=== PATIENT | female | born 1955 | race Caucasian/White ===

== ENCOUNTER 2018-06-10 18:17 | Inpatient (IN) | payer MEDICARE ==
[2018-06-10] MEDS ORDERED: IPRATROPIUM-ALBUTEROL 3 ML NEB INHALATION STA (18:42)
--- NOTE | 2018-06-10 18:42 | ED ---
Chest Pain HPI - General Chief Complaint: Chest Pain Stated Complaint: Chest pain Time Seen by Provider: 06/10/18 18:35 Source: patient, RN notes reviewed, old records reviewed Mode of arrival: wheelchair Limitations: no limitations - History of Present Illness Initial Comments: This is a 62-year-old female the ER for evaluation of multiple complaints complaints including shortness of breath COPD exacerbation, left lower extremity edema and chest pain left-sided chest pain. Patient states chest pain is severe. No recent travel history no sick contacts. No fevers no cough or congestion. Patient states she is having COPD exacerbation but states the pain is worse than normal. No recent travel history no known sick contacts. MD Complaint: chest pain, other (Shortness of breath) -: week(s) Onset: during rest, during exertion Pain Location: left chest Pain Radiation: LUE Severity: moderate Quality: aching Consistency: constant Improves With: nothing Worsens With: nothing Anginal Symptoms: dyspnea Other Symptoms: cough Treatments Prior to Arrival: none - Related Data Home Medications Medication Instructions Recorded Confirmed Albuterol Inhaler [Ventolin Hfa 2 puff INHALATION RT-Q6H PRN 05/30/15 06/10/18 Inhaler] Tiotropium [place] [Spiriva 2 puff INHALATION RT-DAILY 05/30/15 06/10/18 Respimat] amLODIPine [Norvasc] 10 mg PO DAILY 05/30/15 06/10/18 Metoprolol Tartrate [Lopressor] 25 mg PO BID 06/10/18 06/10/18 Omeprazole 20 mg PO DAILY 06/10/18 06/10/18 Allergies Allergy/AdvReac Type Severity Reaction Status Date / Time codeine AdvReac Itching Verified 06/10/18 19:11 succinylcholine chloride AdvReac CAUSED Verified 06/10/18 19:11 [From Anectine] PARALYSIS -PT COULDN'T MOVE AFTER SURGERY Review of Systems ROS Statement: Those systems with pertinent positive or pertinent negative responses have been documented in the HPI. ROS Other: All systems not noted in ROS Statement are negative. EKG Findings - EKG Comments: EKG Findings:: EKG shows sinus bradycardia rate of 59, NV 120, QRS 74, QTC 417 Past Medical History Past Medical History: Asthma, Hypertension, Myocardial Infarction ([place]) Additional Past Medical History / Comment(s): BACK PAIN, ANECTINE-CAUSES PT TO BE PARALYZED. WAS TESTED- MOTHER ALSO HAS PROBLEM WITH THIS Last Myocardial Infarction Date:: 1999 History of Any Multi-Drug Resistant Organisms: None Reported Past Surgical History: Appendectomy, Back Surgery, Heart Catheterization, Hysterectomy, Orthopedic Surgery, Tonsillectomy Additional Past Surgical History / Comment(s): HEART CATH X 2, NECK FUSION & LOWER BACK FUSION-PAIN STIMULATOR IN PER PT, SCHUYLER CT, SCHUYLER TENNIS ELBOW, RT HAND TRIGGER FINGER Past Anesthesia/Blood Transfusion Reactions: Previous Problems w/ Anesthesia Additional Past Anesthesia/Blood Transfusion Reaction / Comment(s): anectine Past Psychological History: No Psychological Hx Reported Smoking Status: Former smoker - Past Family History Mother Family Medical History: Cancer Additional Family Medical History / Comment(s): MOM UTERINE CA Father Family Medical History: Myocardial Infarction ([place]) Additional Family Medical History / Comment(s): No GI malignancy or gluten enteropathy General Exam Limitations: no limitations General appearance: alert, in no apparent distress, anxious Head exam: Present: atraumatic, normocephalic, normal inspection Eye exam: Present: normal appearance, PERRL, EOMI. Absent: scleral icterus, conjunctival injection, periorbital swelling ENT exam: Present: normal exam, mucous membranes moist Neck exam: Present: normal inspection. Absent: tenderness, meningismus, lymphadenopathy Respiratory exam: Present: respiratory distress, wheezes, accessory muscle use, decreased breath sounds, prolonged expiratory. Absent: rales, rhonchi, stridor Cardiovascular Exam: Present: regular rate, normal rhythm, normal heart sounds. Absent: systolic murmur, diastolic murmur, rubs, gallop, clicks GI/Abdominal exam: Present: soft, normal bowel sounds. Absent: distended, tenderness, guarding, rebound, rigid Extremities exam: Present: normal inspection, full ROM, normal capillary refill. Absent: tenderness, pedal edema, joint swelling, calf tenderness Back exam: Present: normal inspection Neurological exam: Present: alert, oriented X3, CN II-XII intact Psychiatric exam: Present: normal affect, normal mood Skin exam: Present: warm, dry, intact, normal color. Absent: rash Course Vital Signs 06/10/18 06/10/18 06/10/18 18:18 19:17 19:29 Temperature 98.3 F Pulse Rate 71 56 L 59 L Respiratory 18 Rate Blood Pressure 125/64 O2 Sat by Pulse 82 L Oximetry 06/10/18 20:36 Temperature Pulse Rate 65 Respiratory 20 Rate Blood Pressure 134/74 O2 Sat by Pulse 95 Oximetry - Reevaluation(s) Reevaluation #1: 06/10/18 20:45 Medical record is reviewed Reevaluation #2: 06/10/18 20:46 No improvement with breathing treatment Chest Pain MDM - MDM 62 female the ER for evaluation [place] COPD exacerbation and hypoxia as well as chest pain. Patient be admitted for cardiac observation breathing treatments. IV steroids and cardiopulmonary resuscitation Critical Care Time Critical Care Time: Yes Total Critical Care Time: 31 Disposition Clinical Impression: Acute exacerbation of chronic obstructive pulmonary disease (COPD), Chest pain , Hypoxia Disposition: ADMITTED IP TO THIS HOSP Condition: Serious Is patient prescribed a controlled substance at d/c from ED?: No Referrals: Keshawn Link MD [Primary Care Provider] - 1-2 days
[2018-06-10 19:43] LABS: Basophils # (A) 0.1 k/uL (0-0.2); Basophils % (A) 1 %; Eosinophils # (A) 0.6 k/uL (0-0.7); Eosinophils % (A) 6 %; HCT 41.9 % (34.0-46.0); HGB 13.3 gm/dL (11.4-16.0); Lymphocytes # (A) 1.9 k/uL (1.0-4.8); Lymphocytes % (A) 18 %; MCHC 31.6 g/dL (31.0-37.0); MCV 85.4 fL (80.0-100.0); Mean Platelet Volume 6.8; Monocytes # (A) 0.6 k/uL (0-1.0); Monocytes % (A) 6 %; Neutrophils # (A) 7.3 k/uL (1.3-7.7); Neutrophils % (A) 68 %; Platelet Count 249 k/uL (150-450); RBC 4.91 m/uL (3.80-5.40); RDW 15.1 % (11.5-15.5); WBC 10.7 k/uL (3.8-10.6)
[2018-06-10 19:53] LABS: ALT 24 U/L (9-52); AST 16 U/L (14-36); Albumin 3.6 g/dL (3.5-5.0); Alkaline Phosphatase 66 U/L (38-126); Anion Gap 5 mmol/L; Blood Urea Nitrogen 21 mg/dL (7-17); Carbon Dioxide 28 mmol/L (22-30); Chloride 109 mmol/L (98-107); Glucose 94 mg/dL (74-99); Lipase 159 U/L (23-300); Magnesium 1.9 mg/dL (1.6-2.3); Potassium 3.9 mmol/L (3.5-5.1); Sodium 142 mmol/L (137-145); Total Bilirubin 0.3 mg/dL (0.2-1.3); Total Protein 6.3 g/dL (6.3-8.2)
[2018-06-10] MEDS ORDERED: MORPHINE SULFATE 4 MG/ML SYRINGE IVP STA (19:54)
[2018-06-10] MEDS ORDERED: MORPHINE SULFATE 4 MG/ML SYRINGE IVP PRN (19:54)
--- NOTE | 2018-06-10 20:18 | US ---
EXAMINATION TYPE: US venous doppler duplex LE LT DATE OF EXAM: 06/10/2018 7:50 PM COMPARISON: NONE CLINICAL HISTORY: Pain. Left leg pain SIDE PERFORMED: Left TECHNIQUE: The lower extremity deep venous system is examined utilizing real time linear array sonog lucie with graded compression, doppler sonography and color-flow sonography. VESSELS IMAGED: External Iliac Vein (EIV) Common Femoral Vein Deep Femoral Vein Greater Saphenous Vein * Femoral Vein Popliteal Vein Small Saphenous Vein * Proximal Calf Veins (* superficial vessels) Left Leg: Negative for DVT IMPRESSION: 1. Left lower extremity ultrasound is negative for deep venous thrombosis.
--- NOTE | 2018-06-10 20:20 | XR ---
EXAMINATION TYPE: XR chest 2V DATE OF EXAM: 06/10/2018 COMPARISON: 06/02/2015 INDICATION: Chest pain TECHNIQUE: Frontal and lateral views of the chest are obtained. FINDINGS: The heart size is normal. The pulmonary vasculature is normal. The lungs are clear. Stimulator leads are in the posterior lower thoracic region. IMPRESSION: 1. No acute pulmonary process.
[2018-06-10 20:30] LABS: D-Dimer 0.42 mg/L FEU (<0.60); INR 0.9 (<1.2); Prothrombin Time 9.9 sec (9.0-12.0)
[2018-06-10] MEDS ORDERED: methylPREDNISolone SOD SUCCI 125 MG/2 ML VIAL IV STA (20:46)
[2018-06-10] MEDS ORDERED: NITROGLYCERIN SL TABS 0.4 MG TAB SUBLINGUAL PRN (20:46)
--- NOTE | 2018-06-10 21:13 | CT ---
CT CHEST FOR PULMONARY EMBOLISM. EXAMINATION TYPE: CT angio chest DATE OF EXAM: 06/10/2018 INDICATION: Left sided chest pain with leg swelling. CT DLP: 263.8 mGycm, Automated exposure control for dose reduction was used. CONTRAST: Patient injected with 65 mL of Isovue 370. COMPARISON: None TECHNIQUE: CT of the chest is performed on a spiral scan at 2 mm thick sections. Study is performed with intravenous contrast timed for evaluation for pulmonary embolism. This will limit additional po rtions of the evaluation. 3-D MIP images reconstructed by the technologist are reviewed on the compu ter in the coronal and sagittal planes. FINDINGS: No persistent filling defects are evident to suggest an acute pulmonary embolism. No mediastinal or hilar adenopathy enlarged by CT criteria is evident. The ascending aorta diameter at the level of the main pulmonary artery is 2.8 cm. The main pulmonary artery diameter at the bifur cation is 2.3 cm. No suspicious consolidations are evident. Emphysematous changes are present. There appears to be some atelectasis within the lingula along the anterior diaphragm. This measures 0.8 x 1.4 cm, series 406 image 95. Atelectasis and masses within the differential. Follow-up CT chest in 3 months is recommend ed. Limited CT section through the upper abdomen are unremarkable. IMPRESSIONS: 1. No acute pulmonary embolism. 2. Atelectasis versus mass lingular base. Follow-up CT chest recommended in 3 months
[2018-06-10 23:18] VITALS: BMI 31.4
[2018-06-10] MEDS: methylPREDNISolone SOD SUCCI 125 MG/2 ML VIAL IV SCH ×2 (23:18→23:19)
[2018-06-10] MEDS ORDERED: CALCIUM CARBONATE 500 MG CHEWABLE PO PRN (23:19)
[2018-06-10] MEDS ORDERED: PANTOPRAZOLE 40 MG/10 ML VIAL IVP SCH (23:30)
[2018-06-10] MEDS ORDERED: TEMAZEPAM 15 MG CAP PO PRN (23:56)
[2018-06-10] MEDS ORDERED: ALPRAZolam 0.25 MG TAB PO PRN (23:56)
[2018-06-11] MEDS: HYDROmorphone 0.5 MG/0.5 ML SYRINGE IVP PRN ×7 (00:08→23:51)
[2018-06-11] MEDS: ceFAZolin IN SWFI 2 GM/20 ML SYRINGE IVP SCH ×4 (01:26→23:56)
[2018-06-11 01:45] LABS: Appearance,Urine Clear (Clear); Bacteria,Urine Rare /hpf; Bilirubin,Urine Negative (Negative); Blood,Urine Negative (Negative); Color,Urine Yellow; Glucose,Urine (UA) Negative (Negative); Ketones,Urine Negative (Negative); Leukocyte Esterase,Urine Trace (Negative); Mucus,Urine Rare /hpf; Nitrite,Urine Negative (Negative); Protein,Urine Trace (Negative); RBC,Urine 2 /hpf (0-5); Squamous Epithelial Cell,Urine 2 /hpf (0-4); Urobilinogen,Urine <2.0 mg/dL (<2.0); WBC,Urine 4 /hpf (0-5)
[2018-06-11 01:50] LABS: Specific Gravity,Urine >1.050 (1.001-1.035)
[2018-06-11] MEDS: IPRATROPIUM-ALBUTEROL 3 ML NEB INHALATION PRN ×2 (01:51→23:56)
[2018-06-11] MEDS: IPRATROPIUM-ALBUTEROL 3 ML NEB INHALATION SCH ×4 (07:48→19:40)
[2018-06-11 07:50] LABS: Basophils # (A) 0.1 k/uL (0-0.2); Basophils % (A) 1 %; Eosinophils # (A) 0.6 k/uL (0-0.7); Eosinophils % (A) 5 %; HGB 13.2 gm/dL (11.4-16.0); Hypochromasia Slight; Lymphocytes # (A) 1.9 k/uL (1.0-4.8); Lymphocytes % (A) 16 %; MCH 26.5 pg (25.0-35.0); MCHC 31.5 g/dL (31.0-37.0); MCV 84.1 fL (80.0-100.0); Mean Platelet Volume 7.5; Monocytes # (A) 0.8 k/uL (0-1.0); Monocytes % (A) 7 %; Neutrophils % (A) 69 %; Platelet Count 229 k/uL (150-450); RDW 14.6 % (11.5-15.5); WBC 11.5 k/uL (3.8-10.6)
--- NOTE | 2018-06-11 08:00 | P.HPIM ---
History of Present Illness H&P Date: 06/11/18 Chief Complaint: Chest pain with melanotic stool This is a 62-year-old white female who has an underlying history of COPD. The patient in the remote past has been treated with stem cells and has been doing quite well from a COPD perspective. She saw me about 2 weeks ago and complained of lower extremity edema. We went ahead and did ultrasound the lower extremities which was negative for any type of DVT. She still says trace edema and now is complaining of left chest pain which radiates to the neck and lower jaw area. No nausea. No diaphoresis. However, she has also been complaining in the last several days of dark stool. No Pepto-Bismol has been taken. No history of GI bleeding in the past. Review of Systems Eyes: denies blurred vision, denies pain Ears, nose, mouth and throat: Denies headache, Denies sore throat Cardiovascular: Reports chest pain Respiratory: Denies cough Gastrointestinal: Denies abdominal pain, Denies diarrhea, Denies nausea, Denies vomiting Genitourinary: Denies dysuria, Denies hematuria Musculoskeletal: Denies myalgias Past Medical History Past Medical History: Asthma, GERD/Reflux, Hypertension, Myocardial Infarction ( [place]) Additional Past Medical History / Comment(s): BACK PAIN, ANECTINE-CAUSES PT TO BE PARALYZED. WAS TESTED- MOTHER ALSO HAS PROBLEM WITH THIS Last Myocardial Infarction Date:: 1999 History of Any Multi-Drug Resistant Organisms: None Reported Past Surgical History: Appendectomy, Back Surgery, Heart Catheterization, Hysterectomy, Orthopedic Surgery, Tonsillectomy Additional Past Surgical History / Comment(s): HEART CATH X 2, NECK FUSION & LOWER BACK FUSION-PAIN STIMULATOR IN PER PT, SCHUYLER CT, SCHUYLER TENNIS ELBOW, RT HAND TRIGGER FINGER Past Anesthesia/Blood Transfusion Reactions: Previous Problems w/ Anesthesia Additional Past Anesthesia/Blood Transfusion Reaction / Comment(s): anectine Past Psychological History: Anxiety Smoking Status: Former smoker Past Alcohol Use History: None Reported Additional Past Alcohol Use History / Comment(s): QUIT SMOKING 2001, SMOKED 1/2 PPD FROM A TEEN Past Drug Use History: None Reported - Past Family History Mother Family Medical History: Cancer Additional Family Medical History / Comment(s): MOM UTERINE CA Father Family Medical History: Myocardial Infarction ([place]) Additional Family Medical History / Comment(s): No GI malignancy or gluten enteropathy Medications and Allergies Home Medications Medication Instructions Recorded Confirmed Type Albuterol Inhaler [Ventolin Hfa 2 puff INHALATION RT-Q6H PRN 05/30/15 06/10/18 History Inhaler] Tiotropium [place] [Spiriva 2 puff INHALATION RT-DAILY 05/30/15 06/10/18 History Respimat] amLODIPine [Norvasc] 10 mg PO DAILY 05/30/15 06/10/18 History Metoprolol Tartrate [Lopressor] 25 mg PO BID 06/10/18 06/10/18 History Omeprazole 20 mg PO DAILY 06/10/18 06/10/18 History Allergies Allergy/AdvReac Type Severity Reaction Status Date / Time codeine AdvReac Itching Verified 06/10/18 19:11 succinylcholine chloride AdvReac CAUSED Verified 06/10/18 19:11 [From Anectine] PARALYSIS -PT COULDN'T MOVE AFTER SURGERY Physical Exam Vitals: Vital Signs Temp Pulse Pulse Resp BP BP Pulse Ox 06/11/18 07:49 62 06/11/18 03:55 97.9 F 60 18 111/51 93 L 06/11/18 02:05 63 06/11/18 01:53 63 06/11/18 00:00 50 L 18 06/10/18 22:55 98.2 F 63 18 160/70 98 06/10/18 21:56 56 L 20 144/78 96 06/10/18 20:36 65 20 134/74 95 06/10/18 19:29 59 L 06/10/18 19:17 56 L 06/10/18 18:18 98.3 F 71 18 125/64 82 L Intake and Output 06/10/18 06/11/18 06/11/18 22:59 06:59 14:59 Intake Total 20 711 Output Total 50 Balance -30 711 Intake: Amount of Fluid Infused ( 20 ml) Oral 711 Output: Urine 50 Other: Voiding Method Toilet # Voids 1 1 Weight 72.575 kg 72.7 kg - Constitutional General appearance: no acute distress - EENT Eyes: EOMI - Neck Neck: no lymphadenopathy - Respiratory Respiratory: bilateral: diminished - Cardiovascular Rhythm: regular Heart sounds: normal: S1, S2 Abnormal Heart Sounds: no S3 Gallop - Gastrointestinal General gastrointestinal: soft - Integumentary Integumentary: no cellulitis - Neurologic Neurologic: CNII-XII intact Results CBC & Chem 7: 06/11/18 07:30 06/10/18 19:34 Labs: Abnormal Lab Results - Last 24 Hours (Table) 06/10/18 06/10/18 06/11/18 Range/Units 19:34 19:34 01:30 WBC 10.7 H (3.8-10.6) k/uL Chloride 109 H (98-107) mmol/L BUN 21 H (7-17) mg/dL Ur Specific [place] >1.050 H (1.001-1.035) Urine Protein Trace H (Negative) Ur Leukocyte Esterase Trace H (Negative) Urine Bacteria Rare H (None) /hpf Urine Mucus Rare H (None) /hpf 06/11/18 Range/Units 07:30 WBC 11.5 H (3.8-10.6) k/uL Chloride (98-107) mmol/L BUN (7-17) mg/dL Ur Specific [place] (1.001-1.035) Urine Protein (Negative) Ur Leukocyte Esterase (Negative) Urine Bacteria (None) /hpf Urine Mucus (None) /hpf Thrombosis Risk Factor Assmnt - Choose All That Apply Any of the Below Risk Factors Present?: Yes Each Factor Represents 1 point: Swollen legs (current) Other Risk Factors: Yes Each Risk Factor Represents 2 Points: Age 61-74 years Thrombosis Risk Factor Assessment Total Risk Factor Score: 3 Thrombosis Risk Factor Assessment Level: Moderate Risk Assessment and Plan (1) Chest pain Current Visit: Yes Status: Acute Code(s): R07.9 - CHEST PAIN, UNSPECIFIED SNOMED Code(s): 33382890 (2) Diarrhea Current Visit: No Status: Acute Code(s): R19.7 - DIARRHEA, UNSPECIFIED SNOMED Code(s): 99733635 (3) COPD (chronic obstructive pulmonary disease) Current Visit: Yes Status: Acute Code(s): J44.9 - CHRONIC OBSTRUCTIVE PULMONARY DISEASE, UNSPECIFIED SNOMED Code(s): 91069713 Plan: Rule out myocardial infraction. Guaiac stool. Check CBC in the a.m. She is otherwise full code. Await cardiology input. Appreciate pulmonology input also. See orders otherwise. Time with Patient: Greater than 30
[2018-06-11 08:03] LABS: Potassium 4.6 mmol/L (3.5-5.1)
[2018-06-11 08:10] LABS: Large Platelets Present
[2018-06-11] MEDS: PANTOPRAZOLE 40 MG TABLET PO SCH (08:35)
[2018-06-11] MEDS: METOPROLOL TARTRATE 25 MG TAB PO SCH ×2 (08:35→19:41)
[2018-06-11] MEDS: amLODIPine 10 MG TAB PO SCH (08:35)
--- NOTE | 2018-06-11 08:37 | HP ---
HISTORY AND PHYSICAL I am covering for Dr. Link. DATE OF SERVICE: 06/10/2018 CHIEF COMPLAINTS: Chest pain and shortness of breath. HISTORY OF PRESENT ILLNESS: This is a 62-year-old woman with a past medical history of multiple medical problems including asthma, history of GERD, hypertension, history of myocardial infarction, appendectomy, being followed by Dr. Link in the outpatient setting, was complaining of multiple symptomatology. The patient also complaining of chest pressure type of pain. Patient also had shortness of breath. The patient also had back pain, patient also complaining of left leg pain and tenderness also. The patient also had elevated blood pressure. Because of multiple complaints, patient came to [facility], admitted for further evaluation and treatment. The patient had multiple evaluations in the ER which showed normal troponins and as well as chest CTA showed no evidence of pulmonary embolism, but the patient had evidence of atelectasis or mass. The mass in the lingular area and the patient evaluation and treatment. There is no history of fever or rigors. No history of headache, loss consciousness or seizures at this time. PAST MEDICAL HISTORY: Asthma, GERD, hypertension, myocardial infarction, back pain, appendectomy. MEDICATIONS: Prior to admission include: 1. Norvasc 10 mg. 2. Spiriva 2 puffs b.i.d. 3. Omeprazole 20 mg daily. 4. Lopressor 25 mg b.i.d. 5. Ventolin 2 puffs q.6 p.r.n. ALLERGIES: CODEINE and SUCCINYLCHOLINE. FAMILY HISTORY: History of cancer, uterine cancer. SOCIAL HISTORY: Previous history of smoking. No history of current smoking or alcohol intake. REVIEW OF SYSTEMS: ENT: No diminished vision or diminished hearing. CARDIOVASCULAR: As mentioned earlier. GI: No nausea : No dysuria. NERVOUS SYSTEM: No numbness or weakness. ALLERGY/IMMUNOLOGY: As mentioned earlier. HEMATOLOGY: No history of anemia. ENDOCRINE: No history of diabetes or hypothyroidism. CONSTITUTIONAL: As mentioned earlier. DERMATOLOGY: Negative. RHEUMATOLOGY: Negative. PSYCHIATRY: As mentioned earlier. PHYSICAL EXAMINATION: The patient is alert and oriented x3. Pulse 65, blood pressure 135/75, respiration 20, temperature 98.2, pulse ox 94% on 2 L. HEENT: Conjunctivae normal, oral mucosa moist. Neck is no jugular venous distention. No lymph node enlargement. CARDIOVASCULAR SYSTEM: S1, S2. RESPIRATORY: Breath sounds diminished in the bases, a few scattered rhonchi, no crackles. ABDOMEN: Soft, nontender. LEGS: Left leg pain and tenderness and some erythema also present in the posterior leg. NERVOUS SYSTEM: Higher functions as mentioned earlier, moves all 4 limbs, no focal motor deficits. LYMPHATICS: No lymph node enlargement in the neck or axillae SKIN: No ulcer, rash or bleeding. JOINTS: No active arthrology. LABS: WBC 7.2, hemoglobin is 13.6. ASSESSMENT: 1. Chronic obstructive pulmonary disease acute exacerbation. 2. Chest pain, rule out myocardial infarction, possibly musculoskeletal. 3. Hypoxia. 4. Right leg pain and possible acute cellulitis. 5. Increased WBC. 6. History of asthma. 7. Gastroesophageal reflux disease. 8. Hypertension. 9. History of myocardial infarction. 10.History of appendectomy. 11.History of hysterectomy. 12.History of anxiety. RECOMMENDATION: In this 62-year-old woman who presented with multiple complex medical issues, will monitor the patient closely, continue with the current management and symptomatic treatment. Patient is started on IV steroids as well as bronchodilators. I would also recommend antibiotics. Resume the home medications. Cardiology has been consulted. The patient also seen Dr. Murcia for COPD. Will resume the rest of the home medications. I would also recommend continue close follow up with Dr. Link. Will follow. See orders for details. MMODL / IJN: [id number] /
[2018-06-11 08:38] LABS: Cholesterol 141 mg/dL (<200); HDL Cholesterol 46 mg/dL (40-60); LDL Cholesterol,Calculated 42 mg/dL (0-99); Triglycerides 265 mg/dL (<150)
[2018-06-11] MEDS ORDERED: ASPIRIN 325 MG TAB PO SCH (09:00)
--- NOTE | 2018-06-11 10:39 | P.CRDCN ---
History of Present Illness Consult date: 06/11/18 Requesting physician: Keshawn Link Consult reason: chest pain Chief complaint: Chest pain History of present illness: This is a pleasant 62-year-old female who follows regularly with Dr. Beto Cagle in the office. She has a known history of hypertension, prior history of smoking, COPD, asthma, prior stem cell transplant in [place], she presents to the hospital with symptoms of shortness of breath. Patient also states that she has been having some chest pain which she describes as a heartburn sensation in the mid chest area upper epigastric area which radiates up into the left shoulder region. Patient states that the pain worsens with deep breathing and movement of her left arm. She also states that the night before last she went up to go to the bathroom in the middle of the night, noticed that her stool was extremely black. Patient also complained of some swelling in her left lower extremity with associated calf pain. Venous duplex study was performed on arrival here which was negative for DVT. CT of the chest was also performed which was negative for pulmonary embolism. According to the patient, she has had an EGD and colonoscopy done in the past but this has been greater than 5 years ago. She also states that she has been scheduled to undergo stress test in the upcoming weeks at the office. She denies any prior history of myocardial infarction, she is a nondiabetic, no hyperlipidemia. Chest x-ray on presentation here did not reveal any acute pulmonary process. EKG on arrival here showed a sinus bradycardia with no acute changes. Blood pressure on arrival here 124/68 with a heart rate in the 70s, 82% on room air. The pressure this morning 110/50 with a heart rate in the 60s, 93% on 3 L of oxygen. White blood cell count 11.5, hemoglobin 13.2, platelet count 229. D-dimer negative at 0.4. Sodium 142, potassium 4.6, BUN 24 and creatinine 0.8. Troponins have been negative 3, BNP level 405. Cholesterol 141, triglycerides 265, LDL 42 and HDL 46. Urinalysis was negative for UTI. At the time of my examination this morning, patient continues to have midsternal and left upper chest discomfort with deep breaths. Past Medical History Past Medical History: Asthma, GERD/Reflux, Hypertension, Myocardial Infarction ( [place]) Additional Past Medical History / Comment(s): BACK PAIN, ANECTINE-CAUSES PT TO BE PARALYZED. WAS TESTED- MOTHER ALSO HAS PROBLEM WITH THIS Last Myocardial Infarction Date:: 1999 History of Any Multi-Drug Resistant Organisms: None Reported Past Surgical History: Appendectomy, Back Surgery, Heart Catheterization, Hysterectomy, Orthopedic Surgery, Tonsillectomy Additional Past Surgical History / Comment(s): HEART CATH X 2, NECK FUSION & LOWER BACK FUSION-PAIN STIMULATOR IN PER PT, SCHUYLER CT, SCHUYLER TENNIS ELBOW, RT HAND TRIGGER FINGER Past Anesthesia/Blood Transfusion Reactions: Previous Problems w/ Anesthesia Additional Past Anesthesia/Blood Transfusion Reaction / Comment(s): anectine Past Psychological History: Anxiety Smoking Status: Former smoker Past Alcohol Use History: None Reported Additional Past Alcohol Use History / Comment(s): QUIT SMOKING 2001, SMOKED 1/2 PPD FROM A TEEN Past Drug Use History: None Reported - Past Family History Mother Family Medical History: Cancer Additional Family Medical History / Comment(s): MOM UTERINE CA Father Family Medical History: Myocardial Infarction ([place]) Additional Family Medical History / Comment(s): No GI malignancy or gluten enteropathy Medications and Allergies Home Medications Medication Instructions Recorded Confirmed Type Albuterol Inhaler [Ventolin Hfa 2 puff INHALATION RT-Q6H PRN 05/30/15 06/10/18 History Inhaler] Tiotropium [place] [Spiriva 2 puff INHALATION RT-DAILY 05/30/15 06/10/18 History Respimat] amLODIPine [Norvasc] 10 mg PO DAILY 05/30/15 06/10/18 History Metoprolol Tartrate [Lopressor] 25 mg PO BID 06/10/18 06/10/18 History Omeprazole 20 mg PO DAILY 06/10/18 06/10/18 History Allergies Allergy/AdvReac Type Severity Reaction Status Date / Time codeine AdvReac Itching Verified 06/10/18 19:11 succinylcholine chloride AdvReac CAUSED Verified 06/10/18 19:11 [From Anectine] PARALYSIS -PT COULDN'T MOVE AFTER SURGERY Physical Exam Vitals: Vital Signs Temp Pulse Pulse Resp BP BP Pulse Ox 06/11/18 08:00 64 06/11/18 07:49 62 06/11/18 03:55 97.9 F 60 18 111/51 93 L 06/11/18 02:05 63 06/11/18 01:53 63 06/11/18 00:00 50 L 18 06/10/18 22:55 98.2 F 63 18 160/70 98 06/10/18 21:56 56 L 20 144/78 96 06/10/18 20:36 65 20 134/74 95 06/10/18 19:29 59 L 06/10/18 19:17 56 L 06/10/18 18:18 98.3 F 71 18 125/64 82 L Intake and Output 06/10/18 06/11/18 06/11/18 22:59 06:59 14:59 Intake Total 20 711 Output Total 50 Balance -30 711 Intake: Amount of Fluid Infused ( 20 ml) Oral 711 Output: Urine 50 Other: Voiding Method Toilet # Voids 1 1 Weight 72.575 kg 72.7 kg PHYSICAL EXAMINATION: GENERAL: 62-year-old female in no acute distress at the time of my examination HEENT: Head is atraumatic, normocephalic. Pupils equal, round. Sclera anicteric. Conjunctiva are clear. Mucous membranes of the mouth are moist. Neck is supple. There is no elevated jugular venous pressure. No carotid] bruit is heard. HEART EXAMINATION: Heart S1, S2 normal. No murmur or gallop heard. Positive midsternal chest discomfort on deep breathing CHEST EXAMINATION: Lungs reveal expiratory wheezing throughout. ABDOMEN: Soft, nontender. Bowel sounds are heard. No organomegaly noted. EXTREMITIES: 2+ peripheral pulses with mild edema noted to the left lower extremity . NEUROLOGIC patient is awake, alert and oriented 3 . . Results 06/11/18 07:30 06/11/18 07:30 Cardiac Enzymes 06/10/18 06/10/18 06/11/18 Range/Units 19:34 19:34 01:15 AST 16 (14-36) U/L Troponin I <0.012 <0.012 (0.000-0.034) ng/mL 06/11/18 Range/Units 07:30 AST (14-36) U/L Troponin I <0.012 (0.000-0.034) ng/mL Coagulation 06/10/18 Range/Units 19:34 PT 9.9 (9.0-12.0) sec APTT 23.0 (22.0-30.0) sec Lipids 06/10/18 Range/Units 19:34 Triglycerides 265 H (<150) mg/dL Cholesterol 141 (<200) mg/dL HDL Cholesterol 46 (40-60) mg/dL CBC 06/10/18 06/11/18 Range/Units 19:34 07:30 WBC 10.7 H 11.5 H (3.8-10.6) k/uL RBC 4.91 5.00 (3.80-5.40) m/uL Hgb 13.3 13.2 (11.4-16.0) gm/dL Hct 41.9 42.0 (34.0-46.0) % Plt Count 249 229 (150-450) k/uL Comprehensive Metabolic Panel 06/10/18 06/11/18 Range/Units 19:34 07:30 Sodium 142 142 (137-145) mmol/L Potassium 3.9 4.6 (3.5-5.1) mmol/L Chloride 109 H 111 H (98-107) mmol/L Carbon Dioxide 28 24 (22-30) mmol/L BUN 21 H 24 H (7-17) mg/dL Creatinine 0.77 0.87 (0.52-1.04) mg/dL Glucose 94 90 (74-99) mg/dL Calcium 9.0 9.0 (8.4-10.2) mg/dL AST 16 (14-36) U/L ALT 24 (9-52) U/L Alkaline Phosphatase 66 (38-126) U/L Total Protein 6.3 (6.3-8.2) g/dL Albumin 3.6 (3.5-5.0) g/dL Current Medications Generic Name Dose Route Start Last Admin Trade Name Freq PRN Reason Stop Dose Admin Acetaminophen 500 mg 06/10/18 23:56 Tylenol Tab PO Q6HR PRN Fever and/ or Pain Albuterol/Ipratropium 3 ml 06/11/18 08:00 06/11/18 07:48 Duoneb 0.5 Mg-3 Mg/3 Ml Soln INHALATION 3 ml RT-QID SHIRLENE Administration Albuterol/Ipratropium 3 ml 06/11/18 01:22 06/11/18 01:51 Duoneb 0.5 Mg-3 Mg/3 Ml Soln INHALATION 3 ml RT-Q2H PRN Administration Shortness Of Breath Or Wheezing Alprazolam 0.25 mg 06/10/18 23:56 06/11/18 00:17 Xanax PO 0.25 mg TID PRN Administration Anxiety Amlodipine Besylate 10 mg 06/11/18 09:00 06/11/18 08:35 Norvasc PO 10 mg DAILY SHIRLENE Administration Aspirin 325 mg 06/11/18 09:00 06/11/18 08:35 Aspirin PO 325 mg DAILY SHIRLENE Administration Calcium Carbonate/Glycine 1,000 mg 06/10/18 23:19 06/11/18 00:09 Tums PO 1,000 mg QID PRN Administration Heartburn Cefazolin Sodium 2 gm 06/11/18 01:00 06/11/18 09:35 Kefzol IVP 2 gm Q8H SHIRLENE Administration Hydromorphone HCl 0.5 mg 06/10/18 23:56 06/11/18 07:30 Dilaudid IVP 0.5 mg Q4HR PRN Administration Severe Pain Metoprolol Tartrate 25 mg 06/11/18 09:00 06/11/18 08:35 Lopressor PO 25 mg BID SHIRLENE Administration Nitroglycerin 0.4 mg 06/10/18 20:46 Nitrostat SUBLINGUAL Q5M PRN Chest Pain Pantoprazole Sodium 40 mg 06/11/18 09:00 06/11/18 08:35 Protonix PO 40 mg DAILY SHIRLENE Administration Temazepam 15 mg 06/10/18 23:56 Restoril PO HS PRN Insomnia Intake and Output 06/10/18 06/11/18 06/11/18 22:59 06:59 14:59 Intake Total 20 711 Output Total 50 Balance -30 711 Intake: Amount of Fluid Infused ( 20 ml) Oral 711 Output: Urine 50 Other: Voiding Method Toilet # Voids 1 1 Weight 72.575 kg 72.7 kg 06/11/18 07:30 06/11/18 07:30 EKG Interpretations (text) EKG shows a sinus bradycardia with no acute changes. Assessment and Plan Plan: Assessment and plan #1 symptoms of shortness of breath, possible asthma and COPD exacerbation. No evidence of congestive cardiac failure. BNP level 405. Chest x-ray does not reveal any acute change. #2 chest pain, atypical in nature. Troponins negative 3. EKG shows a normal sinus rhythm with no acute changes. #3 hypertension #4 COPD and asthma, history of stem cell transplant #5 prior history of smoking #6 epigastric burning with associated black stool Plan We will obtain an echocardiogram with Doppler study. We also recommend a GI evaluation for the epigastric discomfort and positive black stools at home. Stool for guaiac has been requested. Once the patient has recovered from her asthma/COPD exacerbation, we would recommend she undergo stress testing. We'll decrease her aspirin 81 mg daily. Further recommendations to follow. DNP note has been reviewed, I agree with a documented findings and plan of care. Patient was seen and examined.
--- NOTE | 2018-06-11 14:16 | P.CNPUL ---
History of Present Illness Consult date: 06/11/18 Reason for consult: dyspnea, cough, COPD Chief complaint: Shortness of breath chest pain History of present illness: 62-year-old female with a history of smoking the past but however about 10-15 years ago she was a heavy smoker at that time, patient has not been feeling well for the last week to 10 days with increasing shortness of breath and cough she started having some pleuritic chest pain on the left side in addition to that she noted swelling in the lower extremity. Only on the left side she came into emergency department was evaluated with a duplex ultrasound the lower extremity no DVT thrombosis has been noted a computed tomography scan of the chest was failed to reveal any pulmonary embolism of filling defect however nodular atelectasis however noted in the left mid lung field area and lingular lobe about 1 x 1.4 cm in size, since patient has been on bronchodilator therapy and current therapy the severity of pain has improved, patient has been evaluated by cardiovascular services as well, currently patient is being treated with bronchodilators as well as IV antibiotics, patient also complaining of mild right heme eye redness and tenderness in the left calf as well Review of Systems All systems: negative Past Medical History Past Medical History: Asthma, GERD/Reflux, Hypertension, Myocardial Infarction ( [place]) Additional Past Medical History / Comment(s): BACK PAIN, ANECTINE-CAUSES PT TO BE PARALYZED. WAS TESTED- MOTHER ALSO HAS PROBLEM WITH THIS Last Myocardial Infarction Date:: 1999 History of Any Multi-Drug Resistant Organisms: None Reported Past Surgical History: Appendectomy, Back Surgery, Heart Catheterization, Hysterectomy, Orthopedic Surgery, Tonsillectomy Additional Past Surgical History / Comment(s): HEART CATH X 2, NECK FUSION & LOWER BACK FUSION-PAIN STIMULATOR IN PER PT, SCHUYLER CT, SCHUYLER TENNIS ELBOW, RT HAND TRIGGER FINGER Past Anesthesia/Blood Transfusion Reactions: Previous Problems w/ Anesthesia Additional Past Anesthesia/Blood Transfusion Reaction / Comment(s): anectine Past Psychological History: Anxiety Smoking Status: Former smoker Past Alcohol Use History: None Reported Additional Past Alcohol Use History / Comment(s): QUIT SMOKING 2001, SMOKED 1/2 PPD FROM A TEEN Past Drug Use History: None Reported - Past Family History Mother Family Medical History: Cancer Additional Family Medical History / Comment(s): MOM UTERINE CA Father Family Medical History: Myocardial Infarction ([place]) Additional Family Medical History / Comment(s): No GI malignancy or gluten enteropathy Medications and Allergies Home Medications Medication Instructions Recorded Confirmed Type Albuterol Inhaler [Ventolin Hfa 2 puff INHALATION RT-Q6H PRN 05/30/15 06/10/18 History Inhaler] Tiotropium [place] [Spiriva 2 puff INHALATION RT-DAILY 05/30/15 06/10/18 History Respimat] amLODIPine [Norvasc] 10 mg PO DAILY 05/30/15 06/10/18 History Metoprolol Tartrate [Lopressor] 25 mg PO BID 06/10/18 06/10/18 History Omeprazole 20 mg PO DAILY 06/10/18 06/10/18 History Allergies Allergy/AdvReac Type Severity Reaction Status Date / Time codeine AdvReac Itching Verified 06/10/18 19:11 succinylcholine chloride AdvReac CAUSED Verified 06/10/18 19:11 [From Anectine] PARALYSIS -PT COULDN'T MOVE AFTER SURGERY Physical Exam Vitals: Vital Signs Temp Pulse Pulse Resp BP BP Pulse Ox 06/11/18 11:40 96.9 F L 55 L 18 103/52 95 06/11/18 11:30 62 06/11/18 11:19 60 06/11/18 08:25 97 F L 57 L 18 116/48 97 06/11/18 08:00 64 06/11/18 07:49 62 06/11/18 03:55 97.9 F 60 18 111/51 93 L 06/11/18 02:05 63 06/11/18 01:53 63 06/11/18 00:00 50 L 18 06/10/18 22:55 98.2 F 63 18 160/70 98 06/10/18 21:56 56 L 20 144/78 96 06/10/18 20:36 65 20 134/74 95 06/10/18 19:29 59 L 06/10/18 19:17 56 L 06/10/18 18:18 98.3 F 71 18 125/64 82 L Intake and Output 06/10/18 06/11/18 06/11/18 22:59 06:59 14:59 Intake Total 20 711 Output Total 50 Balance -30 711 Intake: Amount of Fluid Infused ( 20 ml) Oral 711 Output: Urine 50 Other: Voiding Method Toilet # Voids 1 1 # Bowel Movements 0 Weight 72.575 kg 72.7 kg - Constitutional General appearance: average body habitus, cooperative, disheveled, mild distress - EENT Eyes: anicteric sclerae, EOMI, PERRLA, poor dentition, normal appearance Ears: bilateral: normal - Neck Carotids: bilateral: upstroke normal Thyroid: bilateral: normal size - Respiratory Respiratory: bilateral: rhonchi (Fine expiratory), wheezing (Fine expiratory), prolonged expiration, negative: diminished, dullness, rales, prolonged inspiration - Cardiovascular Rhythm: regular Heart sounds: normal: S1, S2 - Gastrointestinal General gastrointestinal: distended, normal bowel sounds, soft - Neurologic Neurologic: CNII-XII intact - Musculoskeletal Musculoskeletal: gait normal, generalized weakness, strength equal bilaterally - Psychiatric Psychiatric: A&O x's 3, appropriate affect, intact judgment & insight Results - Laboratory Findings CBC and BMP: 06/11/18 07:30 06/11/18 07:30 PT/INR, D-dimer PT 9.9 sec (9.0-12.0) 06/10/18 19:34 INR 0.9 (<1.2) 06/10/18 19:34 D-Dimer 0.42 mg/L FEU (<0.60) 06/10/18 19:34 Abnormal lab findings: Abnormal Labs 06/10/18 06/10/18 06/10/18 19:34 19:34 19:34 WBC 10.7 H Neutrophils # Chloride 109 H BUN 21 H Triglycerides 265 H Ur Specific [place] Urine Protein Ur Leukocyte Esterase Urine Bacteria Urine Mucus 06/11/18 06/11/18 06/11/18 01:30 07:30 07:30 WBC 11.5 H Neutrophils # 8.0 H Chloride 111 H BUN 24 H Triglycerides Ur Specific [place] >1.050 H Urine Protein Trace H Ur Leukocyte Esterase Trace H Urine Bacteria Rare H Urine Mucus Rare H - Diagnostic Findings Chest x-ray: report reviewed, image reviewed CT scan - chest: report reviewed, image reviewed Assessment and Plan Assessment: Acute COPD exacerbation Tracheobronchitis Left mid lung field nodular atelectasis/nodule Left lower extremity cellulitis Atypical chest pain likely musculoskeletal related to above History of extensive smoking and nicotine use likely moderate to severe COPD Plan: Broad-spectrum antibiotics aiming towards bronchitis as well as left lower extremity cellulitis agree with IV cefazolin for now Bronchodilators IV steroids Will do follow-up outpatient and set her up for a PET scan or either follow-up short-term computed tomography scan in about 3 months, we'll discuss with the patient further Further recommendations pending plan of care as per clinical response of the patient Time with Patient: Greater than 30
[2018-06-12] MEDS: HYDROmorphone 0.5 MG/0.5 ML SYRINGE IVP PRN ×5 (03:46→21:08)
[2018-06-12 08:16] LABS: HCT 41.8 % (34.0-46.0); HGB 12.9 gm/dL (11.4-16.0); Hypochromasia Moderate; MCH 26.4 pg (25.0-35.0); MCHC 30.8 g/dL (31.0-37.0); MCV 85.7 fL (80.0-100.0); Mean Platelet Volume 7.3; Platelet Count 255 k/uL (150-450); RBC 4.88 m/uL (3.80-5.40); RDW 14.9 % (11.5-15.5); WBC 11.3 k/uL (3.8-10.6)
[2018-06-12] MEDS: IPRATROPIUM-ALBUTEROL 3 ML NEB INHALATION SCH ×4 (08:50→20:10)
[2018-06-12] MEDS: ASPIRIN 81 MG PO SCH (09:07)
[2018-06-12] MEDS: METOPROLOL TARTRATE 25 MG TAB PO SCH ×2 (09:07→19:48)
[2018-06-12] MEDS: amLODIPine 10 MG TAB PO SCH (09:07)
[2018-06-12] MEDS: PANTOPRAZOLE 40 MG TABLET PO SCH (09:07)
[2018-06-12] MEDS: ceFAZolin IN SWFI 2 GM/20 ML SYRINGE IVP SCH ×2 (09:22→19:13)
--- NOTE | 2018-06-12 10:51 | ECHOF ---
Referral Reason:chest pain MEASUREMENTS -------- HEIGHT: 152.4 cm WEIGHT: 72.6 kg BP: 116/48 RVIDd: 2.3 cm (< 3.3) IVSd: 0.9 cm (0.6 - 1.1) LVIDd: 3.7 cm (3.9 - 5.3) LVPWd: 0.9 cm (0.6 - 1.1) IVSs: 1.2 cm LVIDs: 2.3 cm LVPWs: 1.2 cm LAESV Index (A-L): 17.24 ml/m Ao Diam: 2.2 cm (2.0 - 3.7) AV Cusp: 1.3 cm (1.5 - 2.6) LA Diam: 2.3 cm (2.7 - 3.8) EPSS: 0.9 cm MV E Dylan: 0.84 m/s MV DecT: 226 ms MV A Dylan: 0.72 m/s MV E/A Ratio: 1.16 RAP: 5.00 mmHg RVSP: 15.86 mmHg MV EF SLOPE: 128.54 mm/s (70 - 150) MV EXCURSION: 1.69 cm (> 18.000) FINDINGS -------- Resting bradycardia (HR<60bpm). This was a technically difficult study with suboptimal views. The left ventricular size is normal. Left ventricular wall thickness is normal. Overall left vent ricular systolic function is normal with, an EF between 55 - 60 %. The right ventricle is normal in size and function. Normal LA size by volume 22+/-6 ml/m2. The right atrium is normal in size. 3 ml of Lumason was utilized for enhancement of images. Aortic valve is trileaflet and is mildly thickened. There is no evidence of aortic regurgitation. There is no evidence of aortic stenosis. The mitral valve leaflets are mildly thickened. There is trace mitral regurgitation. Trace tricuspid regurgitation present. Right ventricular systolic pressure is normal at < 35 mmHg. There is no evidence of pulmonary hypertension. The pulmonic valve was not well visualized. The aortic root size is normal. Normal inferior vena cava with normal inspiratory collapse consistent with estimated right atrial pre ssure of 5 mmHg. There is no pericardial effusion. CONCLUSIONS -------- 1. Resting bradycardia (HR<60bpm). 2. This was a technically difficult study with suboptimal views. 3. The left ventricular size is normal. 4. Left ventricular wall thickness is normal. 5. Overall left ventricular systolic function is normal with, an EF between 55 - 60 %. 6. Normal LA size by volume 22+/-6 ml/m2. 7. 3 ml of Lumason was utilized for enhancement of images. 8. Aortic valve is trileaflet and is mildly thickened. 9. There is no evidence of aortic regurgitation. 10. There is no evidence of aortic stenosis. 11. The mitral valve leaflets are mildly thickened. 12. There is trace mitral regurgitation. 13. Trace tricuspid regurgitation present. 14. Right ventricular systolic pressure is normal at < 35 mmHg. 15. There is no evidence of pulmonary hypertension. 16. The pulmonic valve was not well visualized. 17. The aortic root size is normal. 18. There is no pericardial effusion. SCREEN PRINTING LOADER UNLOADER: Darshan Gaona RDCS
[2018-06-12] MEDS: ACETAMINOPHEN TAB 500 MG TAB PO PRN ×2 (11:09→19:12)
--- NOTE | 2018-06-12 14:14 | P.PN ---
Subjective Progress Note Date: 06/12/18 This is a pleasant 62-year-old female who follows regularly with Dr. Beto Cagle in the office. She has a known history of hypertension, prior history of smoking, COPD, asthma, prior stem cell transplant in [place], she presents to the hospital with symptoms of shortness of breath. Patient also states that she has been having some chest pain which she describes as a heartburn sensation in the mid chest area upper epigastric area which radiates up into the left shoulder region. Patient states that the pain worsens with deep breathing and movement of her left arm. She also states that the night before last she went up to go to the bathroom in the middle of the night, noticed that her stool was extremely black. Patient also complained of some swelling in her left lower extremity with associated calf pain. Venous duplex study was performed on arrival here which was negative for DVT. CT of the chest was also performed which was negative for pulmonary embolism. According to the patient, she has had an EGD and colonoscopy done in the past but this has been greater than 5 years ago. She also states that she has been scheduled to undergo stress test in the upcoming weeks at the office. She denies any prior history of myocardial infarction, she is a nondiabetic, no hyperlipidemia. Chest x-ray on presentation here did not reveal any acute pulmonary process. EKG on arrival here showed a sinus bradycardia with no acute changes. Blood pressure on arrival here 124/68 with a heart rate in the 70s, 82% on room air. The pressure this morning 110/50 with a heart rate in the 60s, 93% on 3 L of oxygen. White blood cell count 11.5, hemoglobin 13.2, platelet count 229. D-dimer negative at 0.4. Sodium 142, potassium 4.6, BUN 24 and creatinine 0.8. Troponins have been negative 3, BNP level 405. Cholesterol 141, triglycerides 265, LDL 42 and HDL 46. Urinalysis was negative for UTI. At the time of my examination this morning, patient continues to have midsternal and left upper chest discomfort with deep breaths. O2 2018 Patient was seen and examined this morning, still complaining of intermittent burning in the center of her chest, continues to have wheezing although it is improved from yesterday. Blood pressure 110/50 with a heart rate in the 50s, 95 % on 3 L of oxygen. White blood cell count 11.3, hemoglobin 12.9, platelet count 255. Echocardiogram with Doppler study was performed which revealed a normal left ventricular systolic function. Objective - Vital Signs Vital signs: Vital Signs Temp 97.8 F 06/12/18 12:06 Pulse 68 06/12/18 12:11 Resp 18 06/12/18 12:06 BP 109/52 06/12/18 12:06 Pulse Ox 95 06/12/18 12:06 Intake & Output 06/11/18 06/12/18 06/12/18 18:59 06:59 18:59 Intake Total 480 Output Total 150 400 Balance 480 -150 -400 Weight 73.1 kg Intake: Oral 480 Output: Urine 150 400 Other: Voiding Method Toilet Toilet # Voids 2 1 # Bowel Movements 0 - Exam PHYSICAL EXAMINATION: GENERAL: 62-year-old female in no acute distress at the time of my examination HEENT: Head is atraumatic, normocephalic. Pupils equal, round. Sclera anicteric. Conjunctiva are clear. Mucous membranes of the mouth are moist. Neck is supple. There is no elevated jugular venous pressure. No carotid] bruit is heard. HEART EXAMINATION: Heart S1, S2 normal. No murmur or gallop heard. Positive midsternal chest discomfort on deep breathing CHEST EXAMINATION: Lungs reveal expiratory wheezing throughout. ABDOMEN: Soft, nontender. Bowel sounds are heard. No organomegaly noted. EXTREMITIES: 2+ peripheral pulses with mild edema noted to the left lower extremity . NEUROLOGIC patient is awake, alert and oriented 3 . - Labs CBC & Chem 7: 06/12/18 07:10 06/11/18 07:30 Labs: Abnormal Lab Results - Last 24 Hours (Table) 06/12/18 Range/Units 07:10 WBC 11.3 H (3.8-10.6) k/uL MCHC 30.8 L (31.0-37.0) g/dL Assessment and Plan Plan: Assessment and plan #1 symptoms of shortness of breath, possible asthma and COPD exacerbation. No evidence of congestive cardiac failure. BNP level 405. Chest x-ray does not reveal any acute change. #2 chest pain, atypical in nature. Troponins negative 3. EKG shows a normal sinus rhythm with no acute changes. #3 hypertension #4 COPD and asthma, history of stem cell transplant #5 prior history of smoking #6 epigastric burning with associated black stool Plan Echocardiogram with Doppler study was performed which revealed a normal left ventricular systolic function. Patient continues to have wheezing today, it was concluded explained to her that once her asthma exacerbation clears up, as an outpatient we will make her a follow-up appointment with Dr. Beto Cagle and outpatient stress testing will then be performed. DNP note has been reviewed, I agree with a documented findings and plan of care. Patient was seen and examined.
--- NOTE | 2018-06-12 18:14 | P.PN ---
Subjective Progress Note Date: 06/12/18 Principal diagnosis: Acute COPD exacerbation, tracheobronchitis, left midlung field nodule atelectasis/nodule, left lower extremity cellulitis, atypical chest pain appears to be musculoskeletal, peptic ulcer disease, history of dark stool, 06/12/2018, patient seen eval reexamined during the rounds clinically she is overall slightly better but still have treated her sternal pain she has been describing dark stool as well, her left lower extremity is still swelling but severity has improved, cough congestion shortness of breath is better, labs reviewed medications reviewed, she is getting IV cefazolin for cellulitis of the lower extremity 62-year-old female with a history of smoking the past but however about 10-15 years ago she was a heavy smoker at that time, patient has not been feeling well for the last week to 10 days with increasing shortness of breath and cough she started having some pleuritic chest pain on the left side in addition to that she noted swelling in the lower extremity. Only on the left side she came into emergency department was evaluated with a duplex ultrasound the lower extremity no DVT thrombosis has been noted a computed tomography scan of the chest was failed to reveal any pulmonary embolism of filling defect however nodular atelectasis however noted in the left mid lung field area and lingular lobe about 1 x 1.4 cm in size, since patient has been on bronchodilator therapy and current therapy the severity of pain has improved, patient has been evaluated by cardiovascular services as well, currently patient is being treated with bronchodilators as well as IV antibiotics, patient also complaining of mild right heme eye redness and tenderness in the left calf as well Objective - Vital Signs Vital signs: Vital Signs Temp 98.2 F 06/12/18 16:00 Pulse 66 06/12/18 16:00 Resp 18 06/12/18 16:00 BP 145/67 06/12/18 16:00 Pulse Ox 94 L 06/12/18 16:00 Intake & Output 06/11/18 06/12/18 06/12/18 18:59 06:59 18:59 Intake Total 480 240 Output Total 150 400 Balance 480 -150 -160 Weight 73.1 kg Intake: Oral 480 240 Output: Urine 150 400 Other: Voiding Method Toilet Toilet # Voids 2 1 # Bowel Movements 0 - Exam - Constitutional General appearance: average body habitus, cooperative, disheveled, mild distress - EENT Eyes: anicteric sclerae, EOMI, PERRLA, poor dentition, normal appearance Ears: bilateral: normal - Neck Carotids: bilateral: upstroke normal Thyroid: bilateral: normal size - Respiratory Respiratory: bilateral: rhonchi (Fine expiratory), wheezing (Fine expiratory), prolonged expiration, negative: diminished, dullness, rales, prolonged inspiration - Cardiovascular Rhythm: regular Heart sounds: normal: S1, S2 - Gastrointestinal General gastrointestinal: distended, normal bowel sounds, soft - Neurologic Neurologic: CNII-XII intact - Musculoskeletal Musculoskeletal: gait normal, generalized weakness, strength equal bilaterally - Psychiatric Psychiatric: A&O x's 3, appropriate affect, intact judgment & insight - Labs CBC & Chem 7: 06/12/18 07:10 06/11/18 07:30 Labs: Abnormal Lab Results - Last 24 Hours (Table) 06/12/18 Range/Units 07:10 WBC 11.3 H (3.8-10.6) k/uL MCHC 30.8 L (31.0-37.0) g/dL Assessment and Plan Assessment: Dark stool will check stool for occult blood Acute COPD exacerbation Tracheobronchitis Left mid lung field nodular atelectasis/nodule Left lower extremity cellulitis Atypical chest pain likely musculoskeletal related to above History of extensive smoking and nicotine use likely moderate to severe COPD Plan: Broad-spectrum antibiotics aiming towards bronchitis as well as left lower extremity cellulitis agree with IV cefazolin for now Bronchodilators IV steroids Will do follow-up outpatient and set her up for a PET scan or either follow-up short-term computed tomography scan in about 3 months, we'll discuss with the patient further Further recommendations pending plan of care as per clinical response of the patient Time with Patient: Greater than 30
[2018-06-12] MEDS: methylPREDNISolone SOD SUCCI 40 MG/ML 1 ML VIAL IV SCH (19:46)
--- NOTE | 2018-06-12 20:55 | P.PN ---
Subjective Progress Note Date: 06/12/18 Principal diagnosis: Shortness of breath The patient is complaining of shortness of breath. Echocardiogram is reviewed which did show appropriate ejection fraction. Exacerbation of COPD is noted. No fever or chills stated that there is significant fatigue. Objective - Vital Signs Vital signs: Vital Signs Temp 98.2 F 06/12/18 16:00 Pulse 68 06/12/18 20:22 Resp 18 06/12/18 16:00 BP 145/67 06/12/18 16:00 Pulse Ox 94 L 06/12/18 16:00 Intake & Output 06/12/18 06/12/18 06/13/18 06:59 18:59 06:59 Intake Total 480 Output Total 150 800 Balance -150 -320 Weight 73.1 kg Intake: Oral 480 Output: Urine 150 800 Other: Voiding Method Toilet Toilet # Voids 1 - Constitutional General appearance: Present: mild distress - EENT Eyes: Absent: abnormal pupil - Neck Neck: Absent: lymphadenopathy - Respiratory Respiratory: bilateral: wheezing - Cardiovascular Rhythm: regular Heart sounds: normal: S1, S2 Abnormal Heart Sounds: Absent: S3 Gallop - Gastrointestinal General gastrointestinal: Present: soft. Absent: tenderness - Integumentary Integumentary: Absent: cellulitis - Psychiatric Psychiatric: Present: A&O x's 3, appropriate affect, intact judgment & insight - Labs CBC & Chem 7: 06/12/18 07:10 06/11/18 07:30 Labs: Abnormal Lab Results - Last 24 Hours (Table) 06/12/18 Range/Units 07:10 WBC 11.3 H (3.8-10.6) k/uL MCHC 30.8 L (31.0-37.0) g/dL Assessment and Plan (1) Chest pain Current Visit: Yes Status: Acute Code(s): R07.9 - CHEST PAIN, UNSPECIFIED SNOMED Code(s): 78805841 (2) Diarrhea Current Visit: No Status: Acute Code(s): R19.7 - DIARRHEA, UNSPECIFIED SNOMED Code(s): 61444885 (3) COPD (chronic obstructive pulmonary disease) Current Visit: Yes Status: Acute Code(s): J44.9 - CHRONIC OBSTRUCTIVE PULMONARY DISEASE, UNSPECIFIED SNOMED Code(s): 58199937 Plan: The patient will continue current regimen of CABG treatment. Appreciate cardiology input. Guaiac stool is pending again. Check CBC and CMP in a.m. Time with Patient: Less than 30
[2018-06-13] MEDS: HYDROmorphone 0.5 MG/0.5 ML SYRINGE IVP PRN ×6 (01:23→22:12)
[2018-06-13] MEDS: ceFAZolin IN SWFI 2 GM/20 ML SYRINGE IVP SCH ×3 (01:23→15:56)
[2018-06-13 07:47] LABS: HGB 12.2 gm/dL (11.4-16.0); Hypochromasia Slight; MCH 26.5 pg (25.0-35.0); MCHC 31.2 g/dL (31.0-37.0); MCV 84.9 fL (80.0-100.0); Mean Platelet Volume 6.7; Platelet Count 234 k/uL (150-450); RBC 4.59 m/uL (3.80-5.40); RDW 14.5 % (11.5-15.5); WBC 11.9 k/uL (3.8-10.6)
[2018-06-13 08:06] LABS: ALT 18 U/L (9-52); AST 15 U/L (14-36); Albumin 3.4 g/dL (3.5-5.0); Alkaline Phosphatase 64 U/L (38-126); Anion Gap 6 mmol/L; Blood Urea Nitrogen 28 mg/dL (7-17); Calcium 8.8 mg/dL (8.4-10.2); Carbon Dioxide 31 mmol/L (22-30); Chloride 105 mmol/L (98-107); Glucose 100 mg/dL (74-99); Potassium 4.3 mmol/L (3.5-5.1); Sodium 142 mmol/L (137-145); Total Bilirubin 0.4 mg/dL (0.2-1.3); Total Protein 5.9 g/dL (6.3-8.2)
--- NOTE | 2018-06-13 08:07 | P.PN ---
Subjective Principal diagnosis: Shortness of breath Shortness of breath is now noted. The patient is refusing any type of steroid treatment. We will try Perforomist. Objective - Vital Signs Vital signs: Vital Signs Temp 98.4 F 06/13/18 04:00 Pulse 68 06/13/18 04:00 Resp 18 06/13/18 04:00 BP 152/69 06/13/18 04:00 Pulse Ox 95 06/13/18 04:00 Intake & Output 06/12/18 06/13/18 06/13/18 18:59 06:59 18:59 Intake Total 480 300 Output Total 800 Balance -320 300 Weight 73.8 kg Intake: Oral 480 300 Output: Urine 800 Other: Voiding Method Toilet Toilet # Voids 1 - Constitutional General appearance: Present: average body habitus - EENT Eyes: Absent: abnormal pupil - Neck Neck: Absent: lymphadenopathy - Respiratory Respiratory: bilateral: wheezing - Cardiovascular Rhythm: regular Heart sounds: normal: S1, S2 Abnormal Heart Sounds: Absent: S3 Gallop - Gastrointestinal General gastrointestinal: Present: soft. Absent: tenderness - Neurologic Neurologic: Present: CNII-XII intact - Labs CBC & Chem 7: 06/13/18 07:09 06/11/18 07:30 Labs: Abnormal Lab Results - Last 24 Hours (Table) 06/12/18 06/13/18 Range/Units 07:10 07:09 WBC 11.3 H 11.9 H (3.8-10.6) k/uL MCHC 30.8 L (31.0-37.0) g/dL Assessment and Plan (1) Chest pain Current Visit: Yes Status: Acute Code(s): R07.9 - CHEST PAIN, UNSPECIFIED SNOMED Code(s): 22226110 (2) Diarrhea Current Visit: No Status: Acute Code(s): R19.7 - DIARRHEA, UNSPECIFIED SNOMED Code(s): 78043256 (3) COPD (chronic obstructive pulmonary disease) Current Visit: Yes Status: Acute Code(s): J44.9 - CHRONIC OBSTRUCTIVE PULMONARY DISEASE, UNSPECIFIED SNOMED Code(s): 53137124 Plan: I don't suspect any type of cardiology sequela at this time. We'll transfer to general medical floor and continue COPD treatment. Check CBC and CMP in a.m. Time with Patient: Less than 30
[2018-06-13] MEDS: IPRATROPIUM-ALBUTEROL 3 ML NEB INHALATION SCH ×4 (08:35→20:11)
[2018-06-13] MEDS: FORMOTEROL FUMARATE 20 MCG/2 ML NEBU INHALATION SCH ×2 (08:47→20:11)
[2018-06-13] MEDS: ASPIRIN 81 MG PO SCH (09:27)
[2018-06-13] MEDS: amLODIPine 10 MG TAB PO SCH (09:27)
[2018-06-13] MEDS: METOPROLOL TARTRATE 25 MG TAB PO SCH ×2 (09:27→22:12)
[2018-06-13] MEDS: PANTOPRAZOLE 40 MG TABLET PO SCH (09:27)
[2018-06-13] MEDS: methylPREDNISolone SOD SUCCI 40 MG/ML 1 ML VIAL IV SCH ×2 (09:27→22:12)
--- NOTE | 2018-06-13 14:58 | P.PN ---
Subjective Progress Note Date: 06/13/18 This is a pleasant 62-year-old female who follows regularly with Dr. Beto Cagle in the office. She has a known history of hypertension, prior history of smoking, COPD, asthma, prior stem cell transplant in [place], she presents to the hospital with symptoms of shortness of breath. Patient also states that she has been having some chest pain which she describes as a heartburn sensation in the mid chest area upper epigastric area which radiates up into the left shoulder region. Patient states that the pain worsens with deep breathing and movement of her left arm. She also states that the night before last she went up to go to the bathroom in the middle of the night, noticed that her stool was extremely black. Patient also complained of some swelling in her left lower extremity with associated calf pain. Venous duplex study was performed on arrival here which was negative for DVT. CT of the chest was also performed which was negative for pulmonary embolism. According to the patient, she has had an EGD and colonoscopy done in the past but this has been greater than 5 years ago. She also states that she has been scheduled to undergo stress test in the upcoming weeks at the office. She denies any prior history of myocardial infarction, she is a nondiabetic, no hyperlipidemia. Chest x-ray on presentation here did not reveal any acute pulmonary process. EKG on arrival here showed a sinus bradycardia with no acute changes. Blood pressure on arrival here 124/68 with a heart rate in the 70s, 82% on room air. The pressure this morning 110/50 with a heart rate in the 60s, 93% on 3 L of oxygen. White blood cell count 11.5, hemoglobin 13.2, platelet count 229. D-dimer negative at 0.4. Sodium 142, potassium 4.6, BUN 24 and creatinine 0.8. Troponins have been negative 3, BNP level 405. Cholesterol 141, triglycerides 265, LDL 42 and HDL 46. Urinalysis was negative for UTI. At the time of my examination this morning, patient continues to have midsternal and left upper chest discomfort with deep breaths. O2 2018 Patient was seen and examined this morning, still complaining of intermittent burning in the center of her chest, continues to have wheezing although it is improved from yesterday. Blood pressure 110/50 with a heart rate in the 50s, 95 % on 3 L of oxygen. White blood cell count 11.3, hemoglobin 12.9, platelet count 255. Echocardiogram with Doppler study was performed which revealed a normal left ventricular systolic function. 06/13/2018 Patient seen and examined this morning, continues to have significant wheezing. Blood pressure 116/60 with a heart rate in the 60s, 90% on 3 L of oxygen. Objective - Vital Signs Vital signs: Vital Signs Temp 98.5 F 06/13/18 12:00 Pulse 67 06/13/18 12:00 Resp 20 06/13/18 12:00 BP 116/64 06/13/18 12:00 Pulse Ox 90 L 06/13/18 12:00 Intake & Output 06/12/18 06/13/18 06/13/18 18:59 06:59 18:59 Intake Total 480 300 240 Output Total 800 Balance -320 300 240 Weight 73.8 kg Intake: Oral 480 300 240 Output: Urine 800 Other: Voiding Method Toilet Toilet Toilet # Voids 1 - Exam PHYSICAL EXAMINATION: GENERAL: 62-year-old female in no acute distress at the time of my examination HEENT: Head is atraumatic, normocephalic. Pupils equal, round. Sclera anicteric. Conjunctiva are clear. Mucous membranes of the mouth are moist. Neck is supple. There is no elevated jugular venous pressure. No carotid] bruit is heard. HEART EXAMINATION: Heart S1, S2 normal. No murmur or gallop heard. Positive midsternal chest discomfort on deep breathing CHEST EXAMINATION: Lungs reveal expiratory wheezing throughout. ABDOMEN: Soft, nontender. Bowel sounds are heard. No organomegaly noted. EXTREMITIES: 2+ peripheral pulses with mild edema noted to the left lower extremity . NEUROLOGIC patient is awake, alert and oriented 3 . - Labs CBC & Chem 7: 06/13/18 07:09 06/13/18 07:09 Labs: Abnormal Lab Results - Last 24 Hours (Table) 06/13/18 06/13/18 Range/Units 07:09 07:09 WBC 11.9 H (3.8-10.6) k/uL Carbon Dioxide 31 H (22-30) mmol/L BUN 28 H (7-17) mg/dL Glucose 100 H (74-99) mg/dL Total Protein 5.9 L (6.3-8.2) g/dL Albumin 3.4 L (3.5-5.0) g/dL Assessment and Plan Plan: Assessment and plan #1 symptoms of shortness of breath, possible asthma and COPD exacerbation. No evidence of congestive cardiac failure. BNP level 405. Chest x-ray does not reveal any acute change. #2 chest pain, atypical in nature. Troponins negative 3. EKG shows a normal sinus rhythm with no acute changes. #3 hypertension #4 COPD and asthma, history of stem cell transplant #5 prior history of smoking #6 epigastric burning with associated black stool Plan Echocardiogram with Doppler study was performed which revealed a normal left ventricular systolic function. Patient continues to have wheezing today, it was explained to her that once her asthma exacerbation clears up, as an outpatient we will make her a follow-up appointment with Dr. Beto Cagle and outpatient stress testing will then be performed. DNP note has been reviewed, I agree with a documented findings and plan of care. Patient was seen and examined.
[2018-06-13] MEDS: ACETAMINOPHEN TAB 500 MG TAB PO PRN (15:54)
[2018-06-14] MEDS: ceFAZolin IN SWFI 2 GM/20 ML SYRINGE IVP SCH ×3 (00:11→16:44)
[2018-06-14] MEDS: HYDROmorphone 0.5 MG/0.5 ML SYRINGE IVP PRN ×2 (02:13→06:38)
[2018-06-14] MEDS: IPRATROPIUM-ALBUTEROL 3 ML NEB INHALATION SCH ×4 (07:07→19:28)
[2018-06-14] MEDS: FORMOTEROL FUMARATE 20 MCG/2 ML NEBU INHALATION SCH ×2 (07:07→19:28)
[2018-06-14] MEDS: ASPIRIN 81 MG PO SCH (08:37)
[2018-06-14] MEDS: amLODIPine 10 MG TAB PO SCH (08:37)
[2018-06-14] MEDS: methylPREDNISolone SOD SUCCI 40 MG/ML 1 ML VIAL IV SCH ×2 (08:37→20:45)
[2018-06-14] MEDS: PANTOPRAZOLE 40 MG TABLET PO SCH ×2 (08:37→16:44)
[2018-06-14] MEDS: METOPROLOL TARTRATE 25 MG TAB PO SCH ×3 (08:37→21:21)
[2018-06-14] MEDS: HYDROcodone/APAP 10-325MG 1 EACH TAB PO PRN ×3 (08:43→22:01)
--- NOTE | 2018-06-14 08:43 | P.PN ---
Subjective Principal diagnosis: Shortness of breath This is a continue process 62-year-old white female essentially admitted for COPD exacerbation with history of chest pain. She's complaining of continued heartburn. Ahead and increase her Protonix today. Objective - Vital Signs Vital signs: Vital Signs Temp 98.5 F 06/14/18 07:08 Pulse 64 06/14/18 07:25 Resp 18 06/14/18 07:08 BP 120/64 06/14/18 07:08 Pulse Ox 95 06/14/18 07:08 Intake & Output 06/13/18 06/14/18 06/14/18 18:59 06:59 18:59 Intake Total 480 250 Output Total 600 Balance -120 250 Intake: Oral 480 250 Output: Urine 600 Other: Voiding Method Toilet Toilet # Voids 1 1 # Bowel Movements 1 - Constitutional General appearance: Present: mild distress, obese - EENT Eyes: Absent: abnormal pupil - Neck Neck: Absent: lymphadenopathy - Respiratory Respiratory: bilateral: diminished - Cardiovascular Rhythm: regular Heart sounds: normal: S1, S2 Abnormal Heart Sounds: Absent: S3 Gallop - Gastrointestinal General gastrointestinal: Present: soft. Absent: tenderness - Psychiatric Psychiatric: Present: A&O x's 3 - Labs CBC & Chem 7: 06/13/18 07:09 06/13/18 07:09 Assessment and Plan (1) Chest pain Current Visit: Yes Status: Acute Code(s): R07.9 - CHEST PAIN, UNSPECIFIED SNOMED Code(s): 89135521 (2) Diarrhea Current Visit: No Status: Acute Code(s): R19.7 - DIARRHEA, UNSPECIFIED SNOMED Code(s): 54072483 (3) COPD (chronic obstructive pulmonary disease) Current Visit: Yes Status: Acute Code(s): J44.9 - CHRONIC OBSTRUCTIVE PULMONARY DISEASE, UNSPECIFIED SNOMED Code(s): 65922465 Plan: Continue current regimen or treatment. The patient is refusing steroid treatment. Anticipate discharge in a.m.
[2018-06-14] MEDS ORDERED: PANTOPRAZOLE 40 MG TABLET PO SCH (08:45)
--- NOTE | 2018-06-14 14:55 | P.PN ---
Subjective Progress Note Date: 06/14/18 Principal diagnosis: Acute COPD exacerbation, tracheobronchitis, left midlung field nodule atelectasis/nodule, left lower extremity cellulitis, atypical chest pain appears to be musculoskeletal, peptic ulcer disease, history of dark stool, 06/14/2018, patient seen eval examined during the rounds clinically patient has been doing slightly better in terms of breathing is still of intermittent cough congestion, patient has refused IV steroids, swelling the lower extremity left side has improved left lower extremity and right erythema noted previously have significantly resolved, agree with discharge planning for tomorrow and follow- up in the office for further evaluation and care 06/12/2018, patient seen eval reexamined during the rounds clinically she is overall slightly better but still have treated her sternal pain she has been describing dark stool as well, her left lower extremity is still swelling but severity has improved, cough congestion shortness of breath is better, labs reviewed medications reviewed, she is getting IV cefazolin for cellulitis of the lower extremity 62-year-old female with a history of smoking the past but however about 10-15 years ago she was a heavy smoker at that time, patient has not been feeling well for the last week to 10 days with increasing shortness of breath and cough she started having some pleuritic chest pain on the left side in addition to that she noted swelling in the lower extremity. Only on the left side she came into emergency department was evaluated with a duplex ultrasound the lower extremity no DVT thrombosis has been noted a computed tomography scan of the chest was failed to reveal any pulmonary embolism of filling defect however nodular atelectasis however noted in the left mid lung field area and lingular lobe about 1 x 1.4 cm in size, since patient has been on bronchodilator therapy and current therapy the severity of pain has improved, patient has been evaluated by cardiovascular services as well, currently patient is being treated with bronchodilators as well as IV antibiotics, patient also complaining of mild right heme eye redness and tenderness in the left calf as well Objective - Vital Signs Vital signs: Vital Signs Temp 98.5 F 06/14/18 07:08 Pulse 68 06/14/18 14:30 Resp 18 06/14/18 07:08 BP 120/64 06/14/18 07:08 Pulse Ox 95 06/14/18 07:08 Intake & Output 06/13/18 06/14/18 06/14/18 18:59 06:59 18:59 Intake Total 480 250 Output Total 600 Balance -120 250 Intake: Oral 480 250 Output: Urine 600 Other: Voiding Method Toilet Toilet # Voids 1 1 # Bowel Movements 1 - Exam - Constitutional General appearance: average body habitus, cooperative, disheveled, mild distress - EENT Eyes: anicteric sclerae, EOMI, PERRLA, poor dentition, normal appearance Ears: bilateral: normal - Neck Carotids: bilateral: upstroke normal Thyroid: bilateral: normal size - Respiratory Respiratory: bilateral: rhonchi (Fine expiratory), wheezing (Fine expiratory), prolonged expiration, negative: diminished, dullness, rales, prolonged inspiration - Cardiovascular Rhythm: regular Heart sounds: normal: S1, S2 - Gastrointestinal General gastrointestinal: distended, normal bowel sounds, soft - Neurologic Neurologic: CNII-XII intact - Musculoskeletal Musculoskeletal: gait normal, generalized weakness, strength equal bilaterally - Psychiatric Psychiatric: A&O x's 3, appropriate affect, intact judgment & insight Trace edema in the lower extremity on the left side has noted however erythema has resolved - Labs CBC & Chem 7: 06/13/18 07:09 06/13/18 07:09 Assessment and Plan Assessment: Dark stool will check stool for occult blood and they were negative Acute COPD exacerbation Tracheobronchitis Left mid lung field nodular atelectasis/nodule Left lower extremity cellulitis Atypical chest pain likely musculoskeletal related to above History of extensive smoking and nicotine use likely moderate to severe COPD Plan: Broad-spectrum antibiotics aiming towards bronchitis as well as left lower extremity cellulitis agree with IV cefazolin however can be changed to Keflex 500 mg by mouth 3 times a day for another 4-5 days Bronchodilators IV steroids can be discontinued and will be monitor and observe an outpatient setting Will do follow-up outpatient and set her up for a PET scan or either follow-up short-term computed tomography scan in about 3 months, we'll discuss with the patient further Further recommendations pending plan of care as per clinical response of the patient Time with Patient: Greater than 30
[2018-06-15] MEDS: ceFAZolin IN SWFI 2 GM/20 ML SYRINGE IVP SCH ×2 (01:16→08:05)
[2018-06-15] MEDS: HYDROcodone/APAP 10-325MG 1 EACH TAB PO PRN (05:53)
[2018-06-15 06:25] VITALS: BP 136/72; RESP 20; TEMP 98
[2018-06-15] MEDS: IPRATROPIUM-ALBUTEROL 3 ML NEB INHALATION SCH (07:11)
[2018-06-15] MEDS: FORMOTEROL FUMARATE 20 MCG/2 ML NEBU INHALATION SCH (07:11)
[2018-06-15 07:32] VITALS: PULSE 68
--- NOTE | 2018-06-15 07:56 | P.DS ---
Providers Date of admission: 06/10/18 20:46 Attending physician: Keshawn Link Consults: 06/10/18 20:46 Consult Physician Routine Consulting Provider: Bhanu Murcia Consult Reason/Comments: copd Do you want consulting provider notified?: Yes Consult Physician Urgent Consulting Provider: Gerald Ferrari Consult Reason/Comments: cp Do you want consulting provider notified?: Yes Primary care physician: Keshawn Link - Discharge Diagnosis(es) (1) Chest pain Current Visit: Yes Status: Acute (2) Diarrhea Current Visit: No Status: Acute (3) COPD (chronic obstructive pulmonary disease) Current Visit: Yes Status: Acute Patient Condition at Discharge: Serious Plan - Discharge Summary Discharge Rx Participant: Yes New Discharge Prescriptions: New Calcium Carbonate [Tums] 1,000 mg PO QID PRN chew PRN Reason: Heartburn Formoterol Fumarate [Perforomist] 20 mcg INHALATION RT-BID #60 nebu HYDROcodone/APAP 10-325MG [Santa 10-325] 1 each PO Q6H PRN tab PRN Reason: Pain Ipratropium-Albuterol Nebulize [Duoneb 0.5 mg-3 mg/3 ml Soln] 3 ml INHALATION RT-QID #120 ampul.neb Continue amLODIPine [Norvasc] 10 mg PO DAILY Albuterol Inhaler [Ventolin Hfa Inhaler] 2 puff INHALATION RT-Q6H PRN PRN Reason: Shortness Of Breath Tiotropium Hull [Spiriva Respimat] 2 puff INHALATION RT-DAILY Metoprolol Tartrate [Lopressor] 25 mg PO BID Omeprazole 20 mg PO DAILY Discharge Medication List Albuterol Inhaler [Ventolin Hfa Inhaler] 2 puff INHALATION RT-Q6H PRN 05/30/15 [ History] Tiotropium Hull [Spiriva Respimat] 2 puff INHALATION RT-DAILY 05/30/15 [ History] amLODIPine [Norvasc] 10 mg PO DAILY 05/30/15 [History] Metoprolol Tartrate [Lopressor] 25 mg PO BID 06/10/18 [History] Omeprazole 20 mg PO DAILY 06/10/18 [History] Calcium Carbonate [Tums] 1,000 mg PO QID PRN chew 06/15/18 [Rx] Formoterol Fumarate [Perforomist] 20 mcg INHALATION RT-BID #60 nebu 06/15/18 [Rx ] HYDROcodone/APAP 10-325MG [Santa 10-325] 1 each PO Q6H PRN tab 06/15/18 [Rx] Ipratropium-Albuterol Nebulize [Duoneb 0.5 mg-3 mg/3 ml Soln] 3 ml INHALATION RT -QID #120 ampul.neb 06/15/18 [Rx] Follow up Appointment(s)/Referral(s): Shelly Cagle MD [STAFF PHYSICIAN] - 1 Week (stress test at follow up appointment ) Keshawn Link MD [Primary Care Provider] - 06/18/18 4:00 pm (Monday) Bhanu Murcia MD [STAFF PHYSICIAN] - 1 Week Patient Instructions/Handouts: COPD (Chronic Obstructive Pulmonary Disease) (DC ) Activity/Diet/Wound Care/Special Instructions: continue O2 at home Discharge Disposition: HOME SELF-CARE
[2018-06-15] MEDS: methylPREDNISolone SOD SUCCI 40 MG/ML 1 ML VIAL IV SCH (08:05)
[2018-06-15] MEDS: METOPROLOL TARTRATE 25 MG TAB PO SCH (08:06)
[2018-06-15] MEDS: ASPIRIN 81 MG PO SCH (08:06)
[2018-06-15] MEDS: amLODIPine 10 MG TAB PO SCH (08:06)
[2018-06-15] MEDS: PANTOPRAZOLE 40 MG TABLET PO SCH (08:06)
== END 2018-06-15 10:41 | disposition home or self-care (01) | DRG 191 ==
LOC: EC 18:17 → 3SCARD 20:46 → 4MS4W 06-13 19:04
PROVIDERS: ADMIT Family Medicine; ATTEND Family Medicine
DX: J44.0 Chronic obstructive pulmonary disease with (acute) lower respiratory infection (principal); Z94.84 Stem cells transplant status; J98.11 Atelectasis; L03.116 Cellulitis of left lower limb; J44.1 Chronic obstructive pulmonary disease with (acute) exacerbation; J40 Bronchitis, not specified as acute or chronic; R07.89 Other chest pain; R09.02 Hypoxemia; K21.9 Gastro-esophageal reflux disease without esophagitis; I10 Essential (primary) hypertension; I25.2 Old myocardial infarction; M54.9 Dorsalgia, unspecified; F41.9 Anxiety disorder, unspecified; E66.9 Obesity, unspecified; Z68.31 Body mass index [BMI] 31.0-31.9, adult; Z79.899 Other long term (current) drug therapy; Z90.710 Acquired absence of both cervix and uterus; Z98.1 Arthrodesis status; Z90.49 Acquired absence of other specified parts of digestive tract; Z87.891 Personal history of nicotine dependence; Z88.5 Allergy status to narcotic agent; Z88.8 Allergy status to other drugs, medicaments and biological substances; Z80.49 Family history of malignant neoplasm of other genital organs; Z82.49 Family history of ischemic heart disease and other diseases of the circulatory system
CPT/HCPCS: 36415; 71046; 71275; 80048; 80053; 80061; 81001; 82272; 83690; 83735; 83880; 84484; 85025; 85027; 85379; 85610; 85730; 93005; 93306; 94640; 94760; 96374; 99291

== ENCOUNTER 2018-10-15 08:06 | Inpatient (IN) | payer MEDICARE ==
[~2018-10-15 08:06] MED LIST: ASPIRIN 325 MG TAB PO STA; ATORVASTATIN 80 MG TAB PO STA; NITROGLYCERIN SL TABS 0.4 MG TAB SUBLINGUAL PRN; SODIUM CHLORIDE 0.9% 1,000 ML in EMPTY BAG 1 BAG IV ONE
[2018-10-15] MEDS ORDERED: ISOSORBIDE MONONITRATE ER 30 MG TAB.ER.24H PO STA (08:43)
[2018-10-15] MEDS: ALPRAZolam 0.25 MG TAB PO PRN (08:47)
[2018-10-15] MEDS ORDERED: SODIUM CHLORIDE 0.9% 1,000 ML IV ONE (09:28)
[2018-10-15] MEDS ORDERED: MIDAZOLAM (PF) 2 MG/2 ML VIAL IVP ONE (09:54)
[2018-10-15] MEDS ORDERED: LIDOCAINE 2% INJ 20 MG/ML SQ ONE (09:55)
[2018-10-15] MEDS ORDERED: fentaNYL (PF) 50 MCG/ML 2 ML AMP ONE (09:57)
[2018-10-15] MEDS ORDERED: fentaNYL (PF) 50 MCG/ML 2 ML AMP IVP ONE (09:58)
[2018-10-15] MEDS ORDERED: BIVALIRUDIN BOLUS 250 MG/50 ML IV ONE (10:17)
[2018-10-15] MEDS ORDERED: BIVALIRUDIN 250 MG in SODIUM CHLORIDE 0.9% 50 ML IV ONE (10:18)
[2018-10-15] MEDS ORDERED: IOPAMIDOL-370 100ML BTL INJ ONE ×2 (10:22→10:34)
[2018-10-15] MEDS ORDERED: NITROGLYCERIN 1000MCG/10ML SYRINGE INTRACORON ONE (10:26)
[2018-10-15] MEDS ORDERED: HYDROmorphone 1 MG/ML 1 ML SYRINGE IVP ONE (10:33)
[2018-10-15] MEDS ORDERED: CLOPIDOGREL 75 MG TAB ONE (10:36)
[2018-10-15] MEDS ORDERED: CLOPIDOGREL 75 MG TAB PO ONE (10:44)
[2018-10-15] MEDS ORDERED: RX INFO: IV CONTRAST WAS GIVEN 1 EACH MISC MISCELLANE PRN (10:48)
[2018-10-15] MEDS ORDERED: NITROGLYCERIN SL TABS 0.4 MG TAB SUBLINGUAL PRN (10:48)
[2018-10-15] MEDS ORDERED: ATROPINE SULFATE 0.1 MG/ML 10ML SYRINGE IV PRN (10:48)
[2018-10-15] MEDS ORDERED: ZOLPIDEM 5 MG TAB PO PRN (10:48)
[2018-10-15] MEDS: SODIUM CHLORIDE 0.9% 1,000 ML IV SCH ×2 (11:23→20:55)
--- NOTE | 2018-10-15 11:48 | CC ---
CARDIAC CATHETERIZATION REPORT DATE OF SERVICE: 10/15/2018 PROCEDURE: 1. Left heart catheterization and coronary angiography. 2. PTCA and stenting of mid LAD with a drug-eluting stent. PERFORMED BY: Dr. Jason Cagle. Moderate conscious sedation time was 43 minutes. The patient was administered Versed and fentanyl. Oxygen saturation, hemodynamics and EKG were monitored closely. CLINICAL INFORMATION: Mrs. Lilibeth Licea is a 62-year-old lady with a history of hypertension, hyperlipidemia, past history of smoking, has been having recurrent episodes of chest pain with a negative stress test in June. However, because of ongoing chest pain and symptoms suggestive of angina, I recommended coronary angiography, even though she had a negative stress test. PROCEDURE NOTE: Under local anesthesia and strict aseptic precautions, a 6-Syriac introducer was placed in the right femoral artery. Using standard Josh catheters, I performed coronary angiography and a pigtail catheter was used to check LV pressures. I noted that she had a 70% long area of disease in mid LAD and proceeded to perform intervention in the same setting. I did not perform an LV-gram, but I checked LV pressures. Following the intervention procedure, a Perclose device was used to secure hemostasis and she was sent to the room in a stable condition. Results were discussed with the patient and family. CARDIAC CATHETERIZATION FINDINGS: The left ventricular end-diastolic pressure was 18 mmHg without any gradient across the aortic valve. CORONARY ANGIOGRAPHY FINDINGS: RIGHT CORONARY ARTERY: Dominant vessel, no significant disease. The proximal and midportion distally bifurcates into a smaller PLV and PDA branches which barely cross the crux. No significant disease in RCA other than minor irregularities. LEFT MAIN CORONARY ARTERY: Long patent disease-free vessel that bifurcates into LAD and circumflex. No significant disease in the left main. LEFT ANTERIOR DESCENDING CORONARY ARTERY: This is a fair caliber, fair distribution vessel, fairly long area of disease is noted in the mid segment of up to 70% of at least a tubular lesion is noted with a focal significant stenosis of about 70% in the midportion. The caliber improves and the vessel runs all the way to the apex, curves over the apex to supply the inferoapical portion of the left ventricle. There are at least 2 good-sized diagonal branches that are tortuous and free of significant disease. Two septal branches come off from the diseased segment. LAD has a 70% long area of narrowing in the midportion. LEFT POSTERIOR CIRCUMFLEX CORONARY ARTERY: Technically a nondominant vessel, good-sized obtuse marginal that runs laterally and is tortuous, has minor irregularities but no significant disease. Left ventriculogram was not performed. FINAL IMPRESSION: This patient has a right dominant system. The mid LAD lesion of 70% eccentric in nature has minor irregularities in other vessels. Slightly elevated filling pressures without any gradient across the aortic valve. RECOMMENDATION: I recommended PCI of mid LAD and proceeded to perform this in the same setting. PCI PROCEDURE DETAILS: A JL3.5 guide catheter was used to cannulate the left coronary artery. A run-through wire was used to cross the lesion. Without predilatation, 18 mm long 3.0 caliber Xience stent was deployed at 14 atmospheres. Patient had chest pain and mild ST elevation in the precordial leads. Excellent angiographic result was achieved without complication. The sheath was taken out and a Perclose device used to secure hemostasis and she was sent to her room in stable condition. The patient received Angiomax bolus and infusion as per protocol and 600 mg of Plavix was given orally. Excellent angiographic result without complication was achieved. I expect that she will be discharged tomorrow if she remains stable. MMODL / IJN: [id number] /
[2018-10-15] MEDS ORDERED: HYDROmorphone 1 MG/ML 1 ML SYRINGE IVP STA (13:06)
[2018-10-15] MEDS: IPRATROPIUM-ALBUTEROL 3 ML NEB INHALATION SCH ×3 (15:22→20:51)
[2018-10-15] MEDS: ACETAMINOPHEN TAB 325 MG TAB PO PRN ×2 (18:22→23:27)
[2018-10-15] MEDS: amLODIPine 10 MG TAB PO SCH (20:55)
[2018-10-15] MEDS: METOPROLOL TARTRATE 25 MG TAB PO SCH (20:55)
[2018-10-15] MEDS: ALPRAZolam 0.5 MG TAB PO PRN (23:59)
[2018-10-16] MEDS ORDERED: IPRATROPIUM 0.5 MG/2.5 ML NEBU INHALATION SCH (08:00)
[2018-10-16 08:04] LABS: Basophils # (A) 0.1 k/uL (0-0.2); Basophils % (A) 1 %; Eosinophils # (A) 0.5 k/uL (0-0.7); Eosinophils % (A) 6 %; HCT 40.1 % (34.0-46.0); HGB 12.3 gm/dL (11.4-16.0); Hypochromasia Slight; Lymphocytes # (A) 1.4 k/uL (1.0-4.8); Lymphocytes % (A) 15 %; MCH 25.1 pg (25.0-35.0); MCHC 30.6 g/dL (31.0-37.0); MCV 82.1 fL (80.0-100.0); Mean Platelet Volume 6.7; Monocytes # (A) 0.6 k/uL (0-1.0); Monocytes % (A) 6 %; Neutrophils # (A) 6.5 k/uL (1.3-7.7); Neutrophils % (A) 70 %; Platelet Count 297 k/uL (150-450); RBC 4.88 m/uL (3.80-5.40); RDW 14.9 % (11.5-15.5); WBC 9.3 k/uL (3.8-10.6)
[2018-10-16] MEDS: METOPROLOL TARTRATE 25 MG TAB PO SCH ×2 (08:11→19:47)
[2018-10-16] MEDS: CLOPIDOGREL 75 MG TAB PO SCH (08:12)
[2018-10-16] MEDS: ASPIRIN 81 MG PO SCH (08:12)
[2018-10-16 08:33] LABS: Calcium 8.9 mg/dL (8.4-10.2); Potassium 4.9 mmol/L (3.5-5.1)
[2018-10-16] MEDS: IPRATROPIUM-ALBUTEROL 3 ML NEB INHALATION SCH ×6 (08:36→22:20)
[2018-10-16] MEDS: ACETAMINOPHEN TAB 325 MG TAB PO PRN ×2 (12:03→22:40)
[2018-10-16] MEDS: ALPRAZolam 0.25 MG TAB PO PRN (12:03)
[2018-10-16 13:51] VITALS: BMI 30.2
--- NOTE | 2018-10-16 14:16 | P.CNPUL ---
History of Present Illness Consult date: 10/16/18 Reason for consult: dyspnea, cough, hypoxemia Chief complaint: Shortness of breath cough and left-sided chest pain History of present illness: This is a 62-year-old female with extensive history of smoking and continues she has baseline COPD she has been experiencing increased cough congestion or shortness of breath for several days also left-sided chest pain she was brought in for left heart cath underwent stenting of mid LAD which was performed successfully her significant other medical problems include hypertension dyslipidemia and extensive smoking currently patient is complaining of ongoing shortness of breath she has nebulizer and oxygen at home but does not use it she's coughing and audible wheezing is present Review of Systems All systems: negative Past Medical History Past Medical History: Asthma, GERD/Reflux, Hypertension, Myocardial Infarction ([place]) Additional Past Medical History / Comment(s): BACK PAIN Last Myocardial Infarction Date:: 1999 History of Any Multi-Drug Resistant Organisms: None Reported Past Surgical History: Appendectomy, Back Surgery, Heart Catheterization, Hysterectomy, Orthopedic Surgery, Tonsillectomy Additional Past Surgical History / Comment(s): HEART CATH X 2, NECK FUSION & LOWER BACK FUSION-PAIN STIMULATOR (located lower back-battery located left lower back near hip), SCHUYLER Carpel tunnel, SCHUYLER TENNIS ELBOW, RT HAND TRIGGER FINGER Past Anesthesia/Blood Transfusion Reactions: Previous Problems w/ Anesthesia, Family History of Problems w/ Anesthesia Additional Past Anesthesia/Blood Transfusion Reaction / Comment(s): ANECTINE- CAUSES PT TO BE PARALYZED for 1-2 days post op. WAS TESTED- MOTHER ALSO HAS PROBLEM WITH THIS Smoking Status: Former smoker - Past Family History Mother Family Medical History: Cancer Additional Family Medical History / Comment(s): MOM UTERINE CA Father Family Medical History: Myocardial Infarction ([place]) Additional Family Medical History / Comment(s): No GI malignancy or gluten enteropathy Medications and Allergies Home Medications Medication Instructions Recorded Confirmed Type amLODIPine [Norvasc] 10 mg PO DAILY 05/30/15 10/12/18 History Metoprolol Tartrate [Lopressor] 25 mg PO BID 06/10/18 10/12/18 History Ipratropium-Albuterol Nebulize 3 ml INHALATION RT-QID #120 06/15/18 10/12/18 Rx [Duoneb 0.5 mg-3 mg/3 ml Soln] ampul.neb Albuterol Sulfate [Proair Hfa] 1 - 2 puff INHALATION Q6HR PRN 10/12/18 10/15/18 History Isosorbide Mononitrate [Isosorbide 30 mg PO DAILY 10/12/18 10/12/18 History Mononitrate ER] Tiotropium [place] [Spiriva] 1 puff INHALATION DAILY 10/12/18 10/12/18 History Aspirin 81 mg PO DAILY #30 chewable 10/16/18 Rx Atorvastatin [Lipitor] 80 mg PO HS #30 tab 10/16/18 Rx Clopidogrel [Plavix] 75 mg PO DAILY #30 tablet 10/16/18 Rx Nitroglycerin Sl Tabs [Nitrostat] 0.4 mg SUBLINGUAL Q5M PRN #100 tab 10/16/18 Rx Allergies Allergy/AdvReac Type Severity Reaction Status Date / Time codeine AdvReac Itching Verified 10/12/18 08:57 succinylcholine chloride AdvReac CAUSED Verified 10/12/18 08:57 [From Anectine] PARALYSIS -PT COULDN'T MOVE AFTER SURGERY Physical Exam Vitals: Vital Signs Temp Pulse Pulse Resp BP BP Pulse Ox 10/16/18 11:59 97.5 F L 57 L 20 152/70 95 10/16/18 11:21 64 10/16/18 11:14 56 L 10/16/18 09:41 68 16 88 L 10/16/18 08:45 60 10/16/18 08:38 58 L 10/16/18 08:22 110/69 10/16/18 08:00 97.5 F L 61 16 139/73 96 10/16/18 04:00 97.5 F L 55 L 18 125/69 94 L 10/16/18 01:14 59 L 18 130/64 95 10/16/18 00:00 69 18 136/72 91 L 10/15/18 23:30 78 L 10/15/18 21:00 62 93 L 10/15/18 20:53 62 10/15/18 20:00 97.7 F 71 18 142/69 83 L 10/15/18 16:00 97.9 F 59 L 18 130/69 96 10/15/18 15:00 97.9 F 16 128/60 95 Intake and Output 10/15/18 10/16/18 10/16/18 22:59 06:59 14:59 Intake Total 240 Balance 240 Intake: Oral 240 Other: Voiding Method Toilet Toilet Toilet # Voids 1 2 # Bowel Movements 1 Weight 72.6 kg 72.6 kg - Constitutional General appearance: average body habitus, disheveled, mild distress - EENT Eyes: anicteric sclerae, EOMI, PERRLA, poor dentition, normal appearance ENT: normal oropharynx Ears: bilateral: normal - Neck Neck: normal ROM Carotids: bilateral: upstroke normal, upstroke bounding, bruit absent Thyroid: bilateral: normal size - Respiratory Respiratory: bilateral: diminished, rhonchi, wheezing, prolonged expiration, negative: dullness, rales - Cardiovascular Rhythm: regular Heart sounds: normal: S1, S2 - Gastrointestinal General gastrointestinal: normal bowel sounds, soft - Neurologic Neurologic: CNII-XII intact - Musculoskeletal Musculoskeletal: gait normal, generalized weakness, strength equal bilaterally - Psychiatric Psychiatric: A&O x's 3, appropriate affect, intact judgment & insight Results - Laboratory Findings CBC and BMP: 10/16/18 06:56 10/16/18 06:56 Abnormal lab findings: Abnormal Labs 10/16/18 10/16/18 06:56 06:56 MCHC 30.6 L Chloride 108 H BUN 24 H Glucose 100 H Assessment and Plan Assessment: Acute COPD exacerbation Tracheobronchitis Coronary artery disease status post stent placement in LAD Hypertension hypertensive cardiovascular disease Chronic hypoxic respiratory failure on home oxygen Obesity Plan: Patient is not ready for discharge We'll recommend admission into the hospital for COPD exacerbation Continue cardiac medications including Plavix Start patient on IV steroids Breathing treatments Broad-spectrum antibiotics Obtain a chest x-ray Further recommendations pending plan of care as per clinical response of patient Time with Patient: Greater than 30
[2018-10-16] MEDS: traMADol 50 MG TAB PO PRN ×2 (14:18→19:48)
--- NOTE | 2018-10-16 16:27 | DS ---
DISCHARGE SUMMARY DATE OF SERVICE: Mrs. Licea was admitted yesterday for an elective catheterization. She underwent PTCA of mid LAD. She is doing well. Complains of chest pain; very musculoskeletal type chest pain. EKG and labs are unremarkable. The cath site is clean and dry. Vitals are stable. S1, S2 heard normally. Lungs are clear. Abdomen and lower extremity exam unchanged. This patient has COPD and has home oxygen. Advised to continue home oxygen. She will be discharged and will see Dr. Murcia from a pulmonology standpoint. I am recommending dual antiplatelet therapy and reviewed with her the importance of medications, to be compliant, and we will see her in the office in 2 weeks. Call if she has a question, concern or problem. MMODL / IJN: [id number] /
[2018-10-16] MEDS: methylPREDNISolone SOD SUCCI 125 MG/2 ML VIAL IV SCH ×2 (17:04→22:07)
--- NOTE | 2018-10-16 18:29 | XR ---
EXAMINATION TYPE: XR chest 2V DATE OF EXAM: 10/16/2018 COMPARISON: 06/10/2018 HISTORY: Chest pain. Pneumonia. TECHNIQUE: Frontal and lateral views of the chest are obtained. FINDINGS: Heart and mediastinum are normal. Lungs are clear of consolidation. There is neuro stimula tor in the lower thoracic spine. There are chest leads. There is no pleural effusion. Bony thorax maryjane ears intact. IMPRESSION: No active cardiopulmonary disease. No change.
[2018-10-16] MEDS: DOXYCYCLINE 100 MG CAP PO SCH (19:46)
[2018-10-16] MEDS: amLODIPine 10 MG TAB PO SCH (19:46)
[2018-10-16] MEDS: ATORVASTATIN 80 MG TAB PO SCH (19:46)
[2018-10-16] MEDS: HEPARIN SODIUM,PORCINE 5,000 UNIT/ML 1 ML VIAL SQ SCH (19:46)
--- NOTE | 2018-10-16 23:25 | P.HPIM ---
History of Present Illness Chief Complaint: Chest pain with desaturation This is a history and physical on a 62-year-old white female with known history of COPD who has been having intermittent chest pain for the last several months. She ended up with cardiology evaluation which ended up having cardiac catheterization and stent placement. However, she has been complaining postoperatively of significant chest pain in the left upper area. After evaluation with cardiology, it is felt this is more related to her COPD. She has had multiple stem cell treatments and usually she recovers well when she receives these platelet rich plasma treatments. Review of Systems Constitutional: Denies chills, Denies fever Eyes: denies blurred vision, denies pain Ears, nose, mouth and throat: Denies headache, Denies sore throat Cardiovascular: Reports as per HPI Respiratory: Reports as per HPI Genitourinary: Denies dysuria, Denies hematuria Musculoskeletal: Denies myalgias Past Medical History Past Medical History: Asthma, GERD/Reflux, Hypertension, [place]ocardial Infarction ([place]) Additional Past Medical History / Comment(s): BACK PAIN Last Myocardial Infarction Date:: 1999 History of Any Multi-Drug Resistant Organisms: None Reported Past Surgical History: Appendectomy, Back Surgery, Heart Catheterization, Hysterectomy, Orthopedic Surgery, Tonsillectomy Additional Past Surgical History / Comment(s): HEART CATH X 2, NECK FUSION & LOWER BACK FUSION-PAIN STIMULATOR (located lower back-battery located left lower back near hip), SCHUYLER Carpel tunnel, SCHUYLER TENNIS ELBOW, RT HAND TRIGGER FINGER Past Anesthesia/Blood Transfusion Reactions: Previous Problems w/ Anesthesia, F amily History of Problems w/ Anesthesia Additional Past Anesthesia/Blood Transfusion Reaction / Comment(s): ANECTINE- CAUSES PT TO BE PARALYZED for 1-2 days post op. WAS TESTED- MOTHER ALSO HAS PROBLEM WITH THIS Smoking Status: Former smoker - Past Family History Mother Family Medical History: Cancer Additional Family Medical History / Comment(s): MOM UTERINE CA Father Family Medical History: Myocardial Infarction ([place]) Additional Family Medical History / Comment(s): No GI malignancy or gluten enteropathy Medications and Allergies Home Medications Medication Instructions Recorded Confirmed Type amLODIPine [Norvasc] 10 mg PO DAILY 05/30/15 10/16/18 History Metoprolol Tartrate [Lopressor] 25 mg PO BID 06/10/18 10/16/18 History Ipratropium-Albuterol Nebulize 3 ml INHALATION RT-QID #120 06/15/18 10/16/18 Rx [Duoneb 0.5 mg-3 mg/3 ml Soln] ampul.neb Albuterol Sulfate [Proair Hfa] 1 - 2 puff INHALATION RT-Q6H PRN 10/12/18 10/16/18 History Isosorbide Mononitrate [Isosorbide 30 mg PO DAILY 10/12/18 10/16/18 History Mononitrate ER] Tiotropium [place] [Spiriva] 1 cap INHALATION RT-DAILY 10/12/18 10/16/18 History Aspirin 81 mg PO DAILY #30 chewable 10/16/18 Rx Atorvastatin [Lipitor] 80 mg PO HS #30 tab 10/16/18 Rx Clopidogrel [Plavix] 75 mg PO DAILY #30 tablet 10/16/18 Rx Nitroglycerin Sl Tabs [Nitrostat] 0.4 mg SUBLINGUAL Q5M PRN #100 tab 10/16/18 Rx Allergies Allergy/AdvReac Type Severity Reaction Status Date / Time codeine AdvReac Itching Verified 10/16/18 18:15 succinylcholine chloride AdvReac CAUSED Verified 10/16/18 18:15 [From Anectine] PARALYSIS -PT COULDN'T MOVE AFTER SURGERY Physical Exam Vitals: Vital Signs Temp Pulse Pulse Resp BP Pulse Ox 10/16/18 20:39 72 10/16/18 20:25 70 10/16/18 19:55 68 18 10/16/18 19:53 97.5 F L 68 18 170/78 95 10/16/18 16:00 98 F 59 L 16 133/68 97 10/16/18 15:46 68 10/16/18 15:35 60 10/16/18 11:59 97.5 F L 57 L 20 152/70 95 10/16/18 11:21 64 10/16/18 11:14 56 L 10/16/18 09:41 68 16 88 L 10/16/18 08:45 60 10/16/18 08:38 58 L 10/16/18 08:22 110/69 10/16/18 08:00 97.5 F L 61 16 139/73 96 10/16/18 04:00 97.5 F L 55 L 18 125/69 94 L 10/16/18 01:14 59 L 18 130/64 95 10/16/18 00:00 69 18 136/72 91 L 10/15/18 23:30 78 L Intake and Output 10/16/18 10/16/18 10/17/18 14:59 22:59 06:59 Intake Total 240 360 Balance 240 360 Intake: Oral 240 360 Other: Voiding Method Toilet Toilet # Voids 1 1 # Bowel Movements 1 Weight 72.6 kg - Constitutional General appearance: mild distress - EENT Eyes: EOMI - Neck Neck: no lymphadenopathy - Respiratory Respiratory: left: rhonchi, bilateral: diminished - Cardiovascular Rhythm: regular Heart sounds: normal: S1, S2 Abnormal Heart Sounds: no S3 Gallop - Integumentary Integumentary: no calor - Neurologic Neurologic: CNII-XII intact - Psychiatric Psychiatric: A&O x's 3, appropriate affect, intact judgment & insight Results CBC & Chem 7: 10/16/18 06:56 10/16/18 06:56 Labs: Abnormal Lab Results - Last 24 Hours (Table) 10/16/18 10/16/18 Range/Units 06:56 06:56 MCHC 30.6 L (31.0-37.0) g/dL Chloride 108 H (98-107) mmol/L BUN 24 H (7-17) mg/dL Glucose 100 H (74-99) mg/dL Assessment and Plan (1) Acute exacerbation of chronic obstructive pulmonary disease (COPD) Current Visit: No Status: Acute Code(s): J44.1 - CHRONIC OBSTRUCTIVE PULMONARY DISEASE W (ACUTE) EXACERBATION SNOMED Code(s): 079385451 (2) Chest pain Current Visit: No Status: Acute Code(s): R07.9 - CHEST PAIN, UNSPECIFIED SNOMED Code(s): 90185647 (3) Hypoxia Current Visit: No Status: Acute Code(s): R09.02 - HYPOXEMIA SNOMED Code(s): 482488081 Plan: We will transfer from cardiology to admit to family medicine service. Consult pulmonology. Check CBC and CMP in a.m. Question need for albuterol and Solu-Medrol treatments empirically. Prognosis is guarded secondary to multiple comorbidities Time with Patient: Greater than 30
[2018-10-17] MEDS: traMADol 50 MG TAB PO PRN ×3 (01:56→21:17)
[2018-10-17] MEDS: methylPREDNISolone SOD SUCCI 125 MG/2 ML VIAL IV SCH ×5 (04:03→22:30)
[2018-10-17] MEDS: ACETAMINOPHEN TAB 325 MG TAB PO PRN ×3 (05:24→19:56)
[2018-10-17] MEDS: IPRATROPIUM-ALBUTEROL 3 ML NEB INHALATION SCH ×4 (08:13→20:23)
[2018-10-17] MEDS: HEPARIN SODIUM,PORCINE 5,000 UNIT/ML 1 ML VIAL SQ SCH ×2 (08:42→19:56)
[2018-10-17] MEDS: ASPIRIN 81 MG PO SCH (08:42)
[2018-10-17] MEDS: CLOPIDOGREL 75 MG TAB PO SCH (08:42)
[2018-10-17] MEDS: DOXYCYCLINE 100 MG CAP PO SCH ×2 (09:02→19:56)
[2018-10-17] MEDS: METOPROLOL TARTRATE 25 MG TAB PO SCH ×2 (09:16→19:56)
--- NOTE | 2018-10-17 10:50 | PN ---
PROGRESS NOTE Mrs. Licea is a 62-year-old female who underwent cardiac catheterization and stenting of the mid LAD by Dr. Jason Cagle. She is complaining of dyspnea and chest discomfort. The discomfort is worse with deep breathing and coughing as well as palpation. She has no change in her EKG. She has no dizziness. No palpitation. No PND. No peripheral edema. She continues to be on aspirin once a day, amlodipine 10 mg daily, Lipitor 80 mg daily, Plavix 75 mg daily, methylprednisolone, metoprolol tartrate 25 mg twice a day. PHYSICAL EXAMINATION: Blood pressure 124/60 with the heart rate in the 60. LUNGS: With mild decrease in breath sounds. No wheezes. HEART: Regular rate and rhythm. S1, S2. No S3 or rub. ABDOMEN: Soft, nontender. EXTREMITIES: No edema. EKG with no acute changes. IMPRESSION: 1. Status post stenting of the LAD, stable. 2. Chest discomfort atypical for ischemic heart disease, musculoskeletal in etiology. 3. Chronic obstructive pulmonary disease. 4. Hypertension. 5. Hyperlipidemia. RECOMMENDATION: From the cardiac standpoint, she is stable to be discharged home when she is stable from the pulmonary standpoint. She will follow up with Dr. Jason Cagle as scheduled. MMODL / IJN: [id number] /
--- NOTE | 2018-10-17 12:43 | P.PN ---
Subjective Progress Note Date: 10/17/18 Principal diagnosis: Acute COPD exacerbation and purulent tracheobronchitis coronary artery disease with stenosis of LAD status post stent placement hypertension hypertensive cardi ovascular disease, end-stage lung disease and COPD emphysema 10/17/2018, patient seen eval examined during the rounds she is still very short of breath congested complaining of left-sided chest pain him a shortness of breath still present labs reviewed medications reviewed patient has been refusing his steroids but now would like to take IV steroids, reviewed x-ray is stable This is a 62-year-old female with extensive history of smoking and continues she has baseline COPD she has been experiencing increased cough congestion or shortness of breath for several days also left-sided chest pain she was brought in for left heart cath underwent stenting of mid LAD which was performed successfully her significant other medical problems include hypertension dyslipidemia and extensive smoking currently patient is complaining of ongoing shortness of breath she has nebulizer and oxygen at home but does not use it she's coughing and audible wheezing is present Objective - Vital Signs Vital signs: Vital Signs Temp 97.8 F 10/17/18 08:00 Pulse 56 L 10/17/18 11:27 Resp 18 10/17/18 08:00 BP 124/61 10/17/18 08:00 Pulse Ox 96 10/17/18 08:00 Intake & Output 10/16/18 10/17/18 10/17/18 18:59 06:59 18:59 Intake Total 600 247 Balance 600 247 Weight 72.6 kg 76.9 kg Intake: IV 10 Invasive Line 1 10 Oral 600 237 Other: Voiding Method Toilet Toilet Toilet # Voids 1 1 3 # Bowel Movements 1 - Exam - Constitutional General appearance: average body habitus, disheveled, mild distress - EENT Eyes: anicteric sclerae, EOMI, PERRLA, poor dentition, normal appearance ENT: normal oropharynx Ears: bilateral: normal - Neck Neck: normal ROM Carotids: bilateral: upstroke normal, upstroke bounding, bruit absent Thyroid: bilateral: normal size - Respiratory Respiratory: bilateral: diminished, rhonchi, wheezing, prolonged expiration, negative: dullness, rales - Cardiovascular Rhythm: regular Heart sounds: normal: S1, S2 - Gastrointestinal General gastrointestinal: normal bowel sounds, soft - Neurologic Neurologic: CNII-XII intact - Musculoskeletal Musculoskeletal: gait normal, generalized weakness, strength equal bilaterally - Psychiatric Psychiatric: A&O x's 3, appropriate affect, intact judgment & insight - Labs CBC & Chem 7: 10/16/18 06:56 10/16/18 06:56 Assessment and Plan Assessment: Acute COPD exacerbation Tracheobronchitis Coronary artery disease status post stent placement in LAD Hypertension hypertensive cardiovascular disease Chronic hypoxic respiratory failure on home oxygen Obesity Plan: Patient is not ready for discharge hopefully next 24 hours should be read Continue cardiac medications including Plavix Start patient on IV steroids, patient is accepting it, and would like to proceed with a Breathing treatments Broad-spectrum antibiotics Reviewed chest x-ray Further recommendations pending plan of care as per clinical response of patient Time with Patient: Greater than 30
[2018-10-17] MEDS: amLODIPine 10 MG TAB PO SCH (19:56)
[2018-10-17] MEDS: ATORVASTATIN 80 MG TAB PO SCH (19:56)
[2018-10-17] MEDS: MAG HYDROX/AL HYDROX/SIMETH 30 ML CUP PO PRN (22:29)
--- NOTE | 2018-10-17 23:39 | P.PN ---
Subjective Progress Note Date: 10/17/18 Principal diagnosis: Exacerbation of COPD The patient is here sensitive for left chest wall pain. Suspect COPD element. Appreciate pulmonology input Objective - Vital Signs Vital signs: Vital Signs Temp 98.0 F 10/17/18 19:59 Pulse 72 10/17/18 20:32 Resp 18 10/17/18 20:00 BP 131/63 10/17/18 19:59 Pulse Ox 92 L 10/17/18 19:59 Intake & Output 10/17/18 10/17/18 10/18/18 06:59 18:59 06:59 Intake Total 1069 Balance 1069 Weight 76.9 kg Intake: IV 50 Invasive Line 1 50 Oral 1019 Other: Voiding Method Toilet Toilet Toilet # Voids 1 2 1 - Constitutional General appearance: Present: mild distress, obese - EENT Eyes: Absent: abnormal pupil - Neck Neck: Absent: lymphadenopathy - Respiratory Respiratory: bilateral: diminished - Cardiovascular Rhythm: regular Heart sounds: normal: S1, S2 Abnormal Heart Sounds: Absent: S3 Gallop - Gastrointestinal General gastrointestinal: Present: soft. Absent: tenderness - Integumentary Integumentary: Absent: cellulitis - Labs CBC & Chem 7: 10/16/18 06:56 10/16/18 06:56 Assessment and Plan (1) Acute exacerbation of chronic obstructive pulmonary disease (COPD) Current Visit: No Status: Acute Code(s): J44.1 - CHRONIC OBSTRUCTIVE PULMONARY DISEASE W (ACUTE) EXACERBATION SNOMED Code(s): 033718443 (2) Chest pain Current Visit: No Status: Acute Code(s): R07.9 - CHEST PAIN, UNSPECIFIED SNOMED Code(s): 89700467 (3) Hypoxia Current Visit: No Status: Acute Code(s): R09.02 - HYPOXEMIA SNOMED Code(s): 114078143 Plan: She has been started on steroid treatment as appropriate for her COPD. Check CBC and CMP in a.m. Continue current regimen of treatment. anticipate discharge in next 24-48 hours if trajectory of improvement falls as expected Time with Patient: Less than 30
[2018-10-18] MEDS: ACETAMINOPHEN TAB 325 MG TAB PO PRN ×2 (01:56→08:13)
[2018-10-18] MEDS: ALPRAZolam 0.5 MG TAB PO PRN ×2 (01:59→22:53)
[2018-10-18] MEDS: traMADol 50 MG TAB PO PRN ×3 (03:03→22:53)
[2018-10-18] MEDS: methylPREDNISolone SOD SUCCI 125 MG/2 ML VIAL IV SCH ×4 (03:04→22:53)
[2018-10-18] MEDS: ASPIRIN 81 MG PO SCH (08:12)
[2018-10-18] MEDS: HEPARIN SODIUM,PORCINE 5,000 UNIT/ML 1 ML VIAL SQ SCH ×2 (08:12→20:13)
[2018-10-18] MEDS: CLOPIDOGREL 75 MG TAB PO SCH (08:12)
[2018-10-18] MEDS: METOPROLOL TARTRATE 25 MG TAB PO SCH ×2 (08:12→20:13)
[2018-10-18] MEDS: MAG HYDROX/AL HYDROX/SIMETH 30 ML CUP PO PRN (08:13)
[2018-10-18] MEDS: DOXYCYCLINE 100 MG CAP PO SCH ×2 (08:27→20:15)
[2018-10-18] MEDS: IPRATROPIUM-ALBUTEROL 3 ML NEB INHALATION SCH ×4 (08:30→20:39)
--- NOTE | 2018-10-18 11:05 | P.PN ---
Subjective Principal diagnosis: Exacerbation of COPD The patient is here sensitive for left chest wall pain. Suspect COPD element. Appreciate pulmonology input. She's having difficulty tolerating solid Medrol due to gastritis type symptomatology. We will go ahead and is continuing after next dose. No fever or chills stated. She seems to be holding patient appropriately with oxygen supplementation. Objective - Vital Signs Vital signs: Vital Signs Temp 98.2 F 10/18/18 07:00 Pulse 72 10/18/18 08:44 Resp 18 10/18/18 08:00 BP 127/69 10/18/18 07:00 Pulse Ox 98 10/18/18 08:34 Intake & Output 10/17/18 10/18/18 10/18/18 18:59 06:59 18:59 Intake Total 1069 370 Balance 1069 370 Weight 74.3 kg Intake: IV 50 10 Invasive Line 1 50 10 Oral 1019 360 Other: Voiding Method Toilet Toilet Toilet # Voids 2 1 - Constitutional General appearance: Present: no acute distress - EENT Eyes: Absent: abnormal pupil - Neck Neck: Absent: lymphadenopathy - Respiratory Respiratory: bilateral: diminished - Cardiovascular Rhythm: regular Heart sounds: normal: S1, S2 Abnormal Heart Sounds: Absent: S3 Gallop - Gastrointestinal General gastrointestinal: Absent: tenderness - Integumentary Integumentary: Absent: cyanotic - Neurologic Neurologic: Present: CNII-XII intact - Psychiatric Psychiatric: Present: A&O x's 3, appropriate affect - Labs CBC & Chem 7: 10/16/18 06:56 10/16/18 06:56 Assessment and Plan (1) Acute exacerbation of chronic obstructive pulmonary disease (COPD) Current Visit: No Status: Acute Code(s): J44.1 - CHRONIC OBSTRUCTIVE PULMONARY DISEASE W (ACUTE) EXACERBATION SNOMED Code(s): 718980262 (2) Chest pain Current Visit: No Status: Acute Code(s): R07.9 - CHEST PAIN, UNSPECIFIED SNOMED Code(s): 02052381 (3) Hypoxia Current Visit: No Status: Acute Code(s): R09.02 - HYPOXEMIA SNOMED Code(s): 994472747 Plan: Restart Imdur as this is home medication. I suspect moderate improvement given yesterday. However, she is adverse to taking Solu-Medroll. Anticipate discharge in a.m. if continued be stable.
[2018-10-18] MEDS: oxyCODONE-APAP 5-325MG 1 EACH TAB PO PRN ×2 (11:31→20:12)
[2018-10-18] MEDS: ISOSORBIDE MONONITRATE ER 30 MG TAB.ER.24H PO SCH (11:31)
--- NOTE | 2018-10-18 11:43 | PN ---
PROGRESS NOTE Mrs. Licea is a 62-year-old female who was admitted by Dr. Jason Cagle and underwent stenting of her LAD. She has history of chronic obstructive lung disease who has been complaining of chest discomfort. The discomfort respirophasic and reproducible by palpation. She is feeling well. She still has some discomfort. She has been ambulating. She denies any dizziness or palpitation. She denies any nausea. She continues to be at this time on aspirin once a day, Plavix 75 mg daily, amlodipine 10 mg daily, Lipitor 80 mg daily, isosorbide mononitrate 30 mg daily, metoprolol tartrate 25 mg twice a day. PHYSICAL EXAMINATION: Blood pressure 140/70 with a heart rate in 60s. LUNGS: Decreased air exchange. No wheezes. HEART: Regular rate and rhythm S1, S2. No S3. No rub. CHEST wall with chest wall tenderness. ABDOMEN: Soft nontender. EXTREMITIES: No edema. IMPRESSION: 1. Status post stenting of the left anterior descending coronary artery. 2. Atypical chest pain. 3. Chronic obstructive lung disease. RECOMMENDATIONS: We will continue present therapy. Increase her level activity. I would expect she should be able to be discharged home by tomorrow and follow up as an outpatient with Dr. Cagle. MMODL / IJN: [id number] /
--- NOTE | 2018-10-18 13:25 | P.PN ---
Subjective Progress Note Date: 10/18/18 Principal diagnosis: Acute COPD exacerbation and purulent tracheobronchitis coronary artery disease with stenosis of LAD status post stent placement hypertension hypertensive cardi ovascular disease, end-stage lung disease and COPD emphysema 10/18/2018, patient seen eval reexamined during the rounds breathing more comfortably denies any chest pain patient continued to refuses use IV steroids, slight left-sided chest pain stable, , d-dimer is normal patient can be discharged in next 24 hours from pulmonary standpoint 10/17/2018, patient seen eval examined during the rounds she is still very short of breath congested complaining of left-sided chest pain him a shortness of b reath still present labs reviewed medications reviewed patient has been refusing his steroids but now would like to take IV steroids, reviewed x-ray is stable This is a 62-year-old female with extensive history of smoking and continues she has baseline COPD she has been experiencing increased cough congestion or shortness of breath for several days also left-sided chest pain she was brought in for left heart cath underwent stenting of mid LAD which was performed successfully her significant other medical problems include hypertension dyslipidemia and extensive smoking currently patient is complaining of ongoing shortness of breath she has nebulizer and oxygen at home but does not use it she 's coughing and audible wheezing is present Objective - Vital Signs Vital signs: Vital Signs Temp 98.2 F 10/18/18 11:04 Pulse 66 10/18/18 12:00 Resp 18 10/18/18 11:06 BP 147/72 10/18/18 11:04 Pulse Ox 93 L 10/18/18 11:04 Intake & Output 10/17/18 10/18/18 10/18/18 18:59 06:59 18:59 Intake Total 1069 380 Output Total 300 Balance 1069 80 Weight 74.3 kg Intake: IV 50 20 Invasive Line 1 50 20 Oral 1019 360 Output: Urine 300 Other: Voiding Method Toilet Toilet Toilet # Voids 2 1 1 - Exam - Constitutional General appearance: average body habitus, disheveled, mild distress - EENT Eyes: anicteric sclerae, EOMI, PERRLA, poor dentition, normal appearance ENT: normal oropharynx Ears: bilateral: normal - Neck Neck: normal ROM Carotids: bilateral: upstroke normal, upstroke bounding, bruit absent Thyroid: bilateral: normal size - Respiratory Respiratory: bilateral: diminished, rhonchi, wheezing, prolonged expiration, negative: dullness, rales - Cardiovascular Rhythm: regular Heart sounds: normal: S1, S2 - Gastrointestinal General gastrointestinal: normal bowel sounds, soft - Neurologic Neurologic: CNII-XII intact - Musculoskeletal Musculoskeletal: gait normal, generalized weakness, strength equal bilaterally - Psychiatric Psychiatric: A&O x's 3, appropriate affect, intact judgment & insight - Labs CBC & Chem 7: 10/16/18 06:56 10/16/18 06:56 Assessment and Plan Assessment: Acute COPD exacerbation Tracheobronchitis Coronary artery disease status post stent placement in LAD Hypertension hypertensive cardiovascular disease Chronic hypoxic respiratory failure on home oxygen Obesity Plan: Patient is ready for discharge hopefully next 24 hours Continue cardiac medications including Plavix Start patient on IV steroids, patient is accepting it, and would like to proceed with initially then again refusing it Breathing treatments Broad-spectrum antibiotics Reviewed chest x-ray Further recommendations pending plan of care as per clinical response of patient Time with Patient: Greater than 30
[2018-10-18] MEDS: ATORVASTATIN 80 MG TAB PO SCH (20:12)
[2018-10-18] MEDS: amLODIPine 10 MG TAB PO SCH (20:13)
[2018-10-19 00:28] VITALS: RESP 18
[2018-10-19] MEDS: oxyCODONE-APAP 5-325MG 1 EACH TAB PO PRN (04:38)
[2018-10-19] MEDS: methylPREDNISolone SOD SUCCI 125 MG/2 ML VIAL IV SCH (06:25)
[2018-10-19] MEDS: METOPROLOL TARTRATE 25 MG TAB PO SCH (07:54)
[2018-10-19] MEDS: ASPIRIN 81 MG PO SCH (07:54)
[2018-10-19] MEDS: DOXYCYCLINE 100 MG CAP PO SCH (07:54)
[2018-10-19] MEDS: ISOSORBIDE MONONITRATE ER 30 MG TAB.ER.24H PO SCH (07:55)
[2018-10-19] MEDS: CLOPIDOGREL 75 MG TAB PO SCH (07:55)
[2018-10-19] MEDS: HEPARIN SODIUM,PORCINE 5,000 UNIT/ML 1 ML VIAL SQ SCH (07:55)
[2018-10-19 08:25] VITALS: BP 146/78; TEMP 98.2
--- NOTE | 2018-10-19 08:42 | P.DS ---
Providers Date of admission: 10/16/18 17:38 Attending physician: Keshawn Link Consults: 10/15/18 10:48 Consult Physician Routine Consulting Provider: [facility] Consult Reason/Comments: Post Interventional patient Do you want consulting provider notified?: Already Contacted 10/16/18 08:42 Consult Physician Routine Consulting Provider: Bhanu Murcia Consult Reason/Comments: pulmonary management Do you want consulting provider notified?: Yes Consult Physician Routine Consulting Provider: Keshawn Link Consult Reason/Comments: medical management Do you want consulting provider notified?: Yes Primary care physician: Keshawn Link - Discharge Diagnosis(es) (1) Acute exacerbation of chronic obstructive pulmonary disease (COPD) Current Visit: No Status: Acute (2) Chest pain Current Visit: No Status: Acute (3) Hypoxia Current Visit: No Status: Acute Hospital Course: This is a discharge summary on a 62-year-old white female essentially admitted for chest pain. She ended up having cardiac catheterization due to the chronicity of her pain and had stents. However, she continued to have pleuritic type chest pain after the stent and I suspected it was related to COPD element which she struggles with. Appropriate pulmonology consultation was done and the patient was discharged in stable condition to follow-up with me in about one week. Patient Condition at Discharge: Fair Plan - Discharge Summary Discharge Rx Participant: No New Discharge Prescriptions: New Aspirin 81 mg PO DAILY #30 chewable Atorvastatin [Lipitor] 80 mg PO HS #30 tab Nitroglycerin Sl Tabs [Nitrostat] 0.4 mg SUBLINGUAL Q5M PRN #100 tab PRN Reason: Chest Pain Clopidogrel [Plavix] 75 mg PO DAILY #30 tablet Mometasone Furoate [Asmanex Hfa] 1 puff INHALATION DAILY #1 inhaler traMADol HCl [Ultram] 50 mg PO Q6H PRN tab PRN Reason: Pain Doxycycline [Vibramycin] 100 mg PO BID #14 cap Continue amLODIPine [Norvasc] 10 mg PO DAILY Metoprolol Tartrate [Lopressor] 25 mg PO BID Ipratropium-Albuterol Nebulize [Duoneb 0.5 mg-3 mg/3 ml Soln] 3 ml INHALATION RT-QID #120 ampul.neb Tiotropium [place] [Spiriva] 1 cap INHALATION RT-DAILY Albuterol Sulfate [Proair Hfa] 1 - 2 puff INHALATION RT-Q6H PRN PRN Reason: Shortness Of Breath Isosorbide Mononitrate [Isosorbide Mononitrate ER] 30 mg PO DAILY Discontinued Atorvastatin [Lipitor] 20 mg PO DAILY Discharge Medication List amLODIPine [Norvasc] 10 mg PO DAILY 05/30/15 [History] Metoprolol Tartrate [Lopressor] 25 mg PO BID 06/10/18 [History] Ipratropium-Albuterol Nebulize [Duoneb 0.5 mg-3 mg/3 ml Soln] 3 ml INHALATION RT-QID #120 ampul.neb 06/15/18 [Rx] Albuterol Sulfate [Proair Hfa] 1 - 2 puff INHALATION RT-Q6H PRN 10/12/18 [History] Isosorbide Mononitrate [Isosorbide Mononitrate ER] 30 mg PO DAILY 10/12/18 [History] Tiotropium [place] [Spiriva] 1 cap INHALATION RT-DAILY 10/12/18 [History] Aspirin 81 mg PO DAILY #30 chewable 10/16/18 [Rx] Atorvastatin [Lipitor] 80 mg PO HS #30 tab 10/16/18 [Rx] Clopidogrel [Plavix] 75 mg PO DAILY #30 tablet 10/16/18 [Rx] Nitroglycerin Sl Tabs [Nitrostat] 0.4 mg SUBLINGUAL Q5M PRN #100 tab 10/16/18 [Rx] Doxycycline [Vibramycin] 100 mg PO BID #14 cap 10/19/18 [Rx] Mometasone Furoate [Asmanex Hfa] 1 puff INHALATION DAILY #1 inhaler 10/19/18 [Rx] traMADol HCl [Ultram] 50 mg PO Q6H PRN tab 10/19/18 [Rx] Follow up Appointment(s)/Referral(s): Shelly Cagle MD [STAFF PHYSICIAN] - 11/01/18 8:45 am () Keshawn Link MD [Primary Care Provider] - 1 Week (Please follow up with Dr. Link within one week of discharge from the hospital.) Bhanu Murcia MD [STAFF PHYSICIAN] - 10/30/18 10:45 am (Monday) Patient Instructions/Handouts: *[facility]gery [facility] - After Heart Catheterization - Cellulose Insulation Helper Instructions, Heart Healthy Diet (DC), COPD (Chronic Obstructive Pulmonary Disease) (DC) Activity/Diet/Wound Care/Special Instructions: No SKYLER inhibitor needed for patient per Dr. CAYLA Cagle. Continue to use nebulizer and and wear oxygen at home. Please follow up with Dr. Murcia in office.
[2018-10-19] MEDS: IPRATROPIUM-ALBUTEROL 3 ML NEB INHALATION SCH (08:55)
[2018-10-19 09:26] VITALS: PULSE 74
--- NOTE | 2018-10-19 12:07 | PN ---
PROGRESS NOTE Mrs. Licea is a 62-year-old female with known history of chronic obstructive lung disease, history of coronary artery disease who recently underwent stenting of her LAD. She is feeling reasonably well overnight. She has some dyspnea and chest discomfort that is reproducible by palpation as well as the breathing. Otherwise, she denies any dizziness. No palpitation. She denies any nausea and vomiting. She continues to be at this time on aspirin once a day, Plavix 75 mg daily, amlodipine 10 mg daily, Lipitor 80 mg daily, isosorbide mononitrate 30 mg daily, metoprolol tartrate 25 mg twice a day. PHYSICAL EXAMINATION: Blood pressure 140/70 with a heart rate in the 70s. LUNGS: With a few wheezes. HEART: Regular rate and rhythm. S1, S2. No S3. No rub. ABDOMEN: Soft, nontender. EXTREMITIES: No edema. Chest wall with chest wall tenderness. IMPRESSION: 1. Status post stenting of the left anterior descending artery. 2. Chest discomfort atypical for ischemic heart disease. 3. Chronic obstructive lung disease. 4. Hyperlipidemia. RECOMMENDATION: Patient should be able to be discharged home today and followed as an outpatient. MMODL / IJN: [id number] /
== END 2018-10-19 10:34 | disposition home or self-care (01) | DRG 982 ==
LOC: CATHCVL 08:06 → 3SCARD 15:09 → CATHCVL 10-16 17:38 → 3SCARD 10-16 17:38 → OBSVTOIN 10-17 15:49
PROVIDERS: ADMIT Family Medicine; ATTEND Family Medicine
PROC: B2111ZZ Fluoroscopy of Multiple Coronary Arteries using Low Osmolar Contrast (ICD-10-PCS; 2018-10-15)
PROC: 027034Z Dilation of Coronary Artery, One Artery with Drug-eluting Intraluminal Device, Percutaneous Approach (ICD-10-PCS; principal; 2018-10-15 09:00)
PROC: 4A023N7 Measurement of Cardiac Sampling and Pressure, Left Heart, Percutaneous Approach (ICD-10-PCS; 2018-10-15 09:00)
DX: J41.1 Mucopurulent chronic bronchitis (principal); J96.11 Chronic respiratory failure with hypoxia; J43.9 Emphysema, unspecified; I11.9 Hypertensive heart disease without heart failure; I25.10 Atherosclerotic heart disease of native coronary artery without angina pectoris; E78.5 Hyperlipidemia, unspecified; J45.909 Unspecified asthma, uncomplicated; K21.9 Gastro-esophageal reflux disease without esophagitis; I25.2 Old myocardial infarction; M54.9 Dorsalgia, unspecified; E66.9 Obesity, unspecified; Z71.3 Dietary counseling and surveillance; Z68.31 Body mass index [BMI] 31.0-31.9, adult; Z99.81 Dependence on supplemental oxygen; Z79.02 Long term (current) use of antithrombotics/antiplatelets; Z79.82 Long term (current) use of aspirin; Z79.899 Other long term (current) drug therapy; Z87.891 Personal history of nicotine dependence; Z90.49 Acquired absence of other specified parts of digestive tract; Z90.710 Acquired absence of both cervix and uterus; Z98.1 Arthrodesis status; Z96.9 Presence of functional implant, unspecified; Z98.890 Other specified postprocedural states; Z88.5 Allergy status to narcotic agent; Z88.8 Allergy status to other drugs, medicaments and biological substances; Z80.49 Family history of malignant neoplasm of other genital organs; Z82.49 Family history of ischemic heart disease and other diseases of the circulatory system
CPT/HCPCS: 71046; 80048; 85025; 85379; 93458; 94640; C1874

== ENCOUNTER → 2018-12-11 | Outpatient (CLI) | payer MEDICARE ==
[2018-12-11 11:25] LABS: HCT 44.4 % (34.0-46.0); HGB 14.2 gm/dL (11.4-16.0); MCH 25.6 pg (25.0-35.0); MCV 80.2 fL (80.0-100.0); Mean Platelet Volume 6.3; Platelet Count 329 k/uL (150-450); RBC 5.54 m/uL (3.80-5.40); RDW 15.9 % (11.5-15.5); WBC 11.5 k/uL (3.8-10.6)
[2018-12-11 15:35] LABS: African American GFR (CKD) 78.9 (60.0-200.0); Anion Gap 9.1 mmol/L (4.00-12.00); Carbon Dioxide 28.9 mmol/L (21.6-31.8); Magnesium 1.8 mg/dL (1.5-2.4)
== END | disposition home or self-care (01) ==
LOC: LABWHC1 10:06
PROVIDERS: ATTEND Internal Medicine Interventional Cardiology
DX: Z01.812 Encounter for preprocedural laboratory examination (principal)
CPT/HCPCS: 36415; 80051; 82565; 82947; 83735; 84520; 85027

== ENCOUNTER 2018-12-14 12:09 | Day surgery (SDC) | payer MEDICARE ==
[~2018-12-14 12:09] MED LIST changes: +ALPRAZolam 0.25 MG TAB PO PRN; +ALPRAZolam 0.5 MG TAB PO PRN; -SODIUM CHLORIDE 0.9% 1,000 ML in EMPTY BAG 1 BAG IV ONE
[2018-12-14] MEDS: SODIUM CHLORIDE 0.9% 1,000 ML in EMPTY BAG 1 BAG IV ONE ×2 (12:34→13:21)
[2018-12-14] MEDS ORDERED: LIDOCAINE 1% INJ 10MG/ML (20 ML MDV) ONE ×2 (12:49→13:14)
[2018-12-14] MEDS ORDERED: LIDOCAINE 1% INJ 10MG/ML (20 ML MDV) SQ ONE (13:36)
[2018-12-14] MEDS: MIDAZOLAM (PF) 2 MG/2 ML VIAL IV ONE ×2 (13:38→13:41)
[2018-12-14] MEDS: NITROGLYCERIN SL TABS 0.4 MG TAB SUBLINGUAL ONE ×2 (13:44→14:30)
[2018-12-14] MEDS ORDERED: NITROGLYCERIN 1000MCG/10ML SYRINGE INTRAARTER ONE (13:45)
[2018-12-14] MEDS ORDERED: IOPAMIDOL-370 100ML BTL INJ ONE (13:57)
[2018-12-14] MEDS ORDERED: amLODIPine 5 MG TAB ONE (14:23)
[2018-12-14] MEDS ORDERED: SODIUM CHLORIDE 0.9% 1,000 ML IV SCH (14:30)
[2018-12-14] MEDS ORDERED: HYDROmorphone 0.5 MG/0.5 ML SYRINGE IVP PRN (14:40)
[2018-12-14] MEDS ORDERED: HYDROmorphone 1 MG/ML 1 ML SYRINGE ONE (14:49)
[2018-12-14 15:23] VITALS: BMI 32.0
[2018-12-14 15:29] VITALS: TEMP 97.5
--- NOTE | 2018-12-14 15:41 | CT ---
CT CHEST FOR PULMONARY EMBOLISM. EXAMINATION TYPE: CT angio chest DATE OF EXAM: 12/14/2018 INDICATION: chest pain, SOB CT DLP: 899.3 mGycm, Automated exposure control for dose reduction was used. CONTRAST: Patient injected with 100 mL of Isovue 370. COMPARISON: 06/10/2018 TECHNIQUE: CT of the chest is performed on a spiral scan at 2 mm thick sections. Study is performed with intravenous contrast timed for evaluation of vascular structures. This may cause some limitation . Portions of the study. 3-D MIP images reconstructed by the technologist are reviewed on the compute r in the coronal and sagittal planes. FINDINGS: No persistent filling defects are evident to suggest an acute pulmonary embolism. Pulmonary arteries are Well-visualized. The aorta appears normal. No aneurysmal dilatation or dissection is evident. Com mon carotid arteries appear normal. Vertebral arteries are codominant. No mediastinal or hilar adenopathy enlarged by CT criteria is evident. The ascending aorta diameter at the level of the main pulmonary artery is 2.9 cm. The main pulmonary artery diameter at the bifur cation is 2.3 cm. Lung windows are clear. Emphysematous changes are present bilaterally. Limited CT section through the upper abdomen are unremarkable. Note is made of advanced facet degener ative changes within the lower lumbar spine. IMPRESSIONS: 1. Normal CTA Chest.
[2018-12-14 17:50] VITALS: RESP 18
--- NOTE | 2018-12-14 17:52 | CC ---
CARDIAC CATHETERIZATION REPORT DATE OF SERVICE: 12/14/2018 PROCEDURE: Left heart catheterization and coronary angiography. PERFORMED BY: Dr. Jason Cagle. Moderate conscious sedation time was 26 minutes. Patient was administered Versed. Oxygen saturation, hemodynamics and EKG were monitored closely. CLINICAL INFORMATION: Mrs. Lilibeth Licea is a 62-year-old lady with a past history of smoking, COPD, hypertension, hyperlipidemia, who underwent stenting of LAD performed on 10/15/2018. This was a mid LAD. A drug-eluting stent was used. She came into the office with recurrent episodes of chest pain, and in view of the fact that she had recent stenting, I recommended coronary angiography after due discussion regarding risks, benefits and options. This patient had a lot of difficulty getting IV access because of her poor veins. I therefore suggested I would place an IV during the cardiac cath procedure. PROCEDURE NOTE: Under local anesthesia and strict aseptic precautions, a 4-Argentine introducer was placed in the right femoral vein and a 6-Argentine introducer in the right femoral artery. Using standard Josh catheters I performed coronary angiography, and the same right Josh catheter was used to check LV pressures. LV gram was not performed. The sheath was taken out and Angio-Seal device used to secure hemostasis. Subsequently I sutured the venous 4-Argentine sheath in, and in view of the fact patient was still having discomfort in the chest and she was hemodynamically stable, I recommended CT angiography chest to rule out any aortic pathology. I explained to the patient the rationale, risks, benefits and options. Patient received about 70 mL of contrast intravenously. The IV access has been an issue, and therefore we will leave the femoral venous sheath in until end of the day. She will be hydrated. She already received more than 200 mL of normal saline during the procedure. CARDIAC CATHETERIZATION FINDINGS: The left ventricular end-diastolic pressure was about 14 mmHg. No gradient across the aortic valve. CORONARY ANGIOGRAPHY FINDINGS: RIGHT CORONARY ARTERY: Large dominant vessel. No significant disease. It distally bifurcates into PDA and PLV and supplies a sizable amount of myocardium. No significant disease noted in the dominant RCA. LEFT MAIN CORONARY ARTERY: Long, patent, disease-free vessel that bifurcates into LAD and circumflex. Left main itself is free of significant disease. LEFT ANTERIOR DESCENDING CORONARY ARTERY: Good-caliber vessel that extends along the anterior wall, supplies a sizable amount of myocardium. There is no significant disease involving the LAD. At the site of previous stenting the vessel is widely patent with remarkably good flow. Soon after the stented segment, a diagonal branch comes off which is also free of significant disease. There are several septal branches which are free of significant disease. The LAD runs all the way to the apex in a tortuous fashion and curves over the apex to supply the inferoapical portion of the left ventricle. There is no significant disease in the LAD and the stented segment is widely patent. LEFT POSTERIOR CIRCUMFLEX CORONARY ARTERY: At the origin of the circumflex there is narrowing of about 20% to 25% noted. The caliber then improves and it runs in the lateral portion, giving off an obtuse marginal branch, and a small AV groove branch is noted. There is a mid lesion of about 35% involving the circumflex, which is a nondominant vessel. Left ventriculogram was not performed. FINAL IMPRESSION: This patient has filling pressures at the upper limits of normal. There is no gradient across the aortic valve. The recently stented mid LAD is widely patent with remarkably good angiographic appearance and flow. Dominant RCA is free of significant disease. Mid circumflex has about a 35% lesion. No other significant disease is noted. This patient continues to have chest pain, and therefore I am recommending CT angiography to be performed to rule out any aortic pathology. Discussed my thoughts in detail with the patient and family, specifically her . MMBRANDONL / IJN: [id number] /
[2018-12-14 18:20] VITALS: BP 134/66; PULSE 58
== END 2018-12-14 20:05 | disposition home or self-care (01) ==
LOC: CATHCVL 12:09 → 3SCARD 13:59 → CATHCVL 20:05
PROVIDERS: ATTEND Internal Medicine Interventional Cardiology
DX: I25.110 Atherosclerotic heart disease of native coronary artery with unstable angina pectoris (principal); I10 Essential (primary) hypertension; I77.1 Stricture of artery; E78.5 Hyperlipidemia, unspecified; Z87.891 Personal history of nicotine dependence; E78.00 Pure hypercholesterolemia, unspecified; Z95.5 Presence of coronary angioplasty implant and graft; J45.30 Mild persistent asthma, uncomplicated; Z79.02 Long term (current) use of antithrombotics/antiplatelets; Z79.82 Long term (current) use of aspirin; Z88.5 Allergy status to narcotic agent; Z88.8 Allergy status to other drugs, medicaments and biological substances
CPT/HCPCS: 93458; 71275; C1760; C1894 ×2; C1769 ×2; J2001; J1170 ×2; Q9967; J2250

== ENCOUNTER → 2020-04-14 | Outpatient (CLI) | payer MEDICARE, OTHER ==
[2020-04-14 15:24] LABS: ABG Base Excess 9.7 mmol/L; ABG HCO3 33 mmol/L (21-25); ABG Oxygen Saturation 95.7 % (94-97); ABG PCO2 39 mmHg (35-45); ABG PH 7.53 (7.35-7.45); ABG PO2 75 mmHg (83-108); ABG TCO2 34 mmol/L (19-24); Allen Test Performed? Yes
== END | disposition home or self-care (01) ==
LOC: CPPFTMAIN 14:48
PROVIDERS: ATTEND Internal Medicine Sleep Medicine
DX: J44.1 Chronic obstructive pulmonary disease with (acute) exacerbation (principal); M25.559 Pain in unspecified hip
CPT/HCPCS: 36600; 82805; 94618

== ENCOUNTER → 2020-09-23 | Outpatient (CLI) | payer MEDICARE, OTHER ==
--- NOTE | 2020-09-23 14:50 | XR ---
EXAMINATION TYPE: XR chest 2V DATE OF EXAM: 09/23/2020 COMPARISON: Chest x-ray October 16, 2018. CTA chest December 14, 2018.. HISTORY: Preoperative. TECHNIQUE: Frontal and lateral views of the chest are obtained. FINDINGS: There is background chronic emphysematous change without suspicious focal air space opacit y, pleural effusion, or pneumothorax seen. The cardiac silhouette size is stable and within normal l imits. The osseous structures are intact. IMPRESSION: Chronic emphysematous change without acute pulmonary process.
--- NOTE | 2020-09-23 15:14 | NM ---
EXAMINATION TYPE: NM pul vent and perfuse DATE OF EXAM: 09/23/2020 COMPARISON: CT chest December 14, 2018. Two-view chest x-ray earlier today. HISTORY: COPD with dyspnea. TECHNIQUE: Utilizing inhalation of 65.5 mCi Tc 99m DTPA aerosol and intravenous injection of 5.18 mC i of Tc 99m MAA, ventilation and perfusion images are acquired post injection in multiple projections . FINDINGS: Central clumping of particles on ventilation images consistent with underlying emphysema. S cattered moderate-sized matching defects throughout bilateral lungs greatest in the upper lungs . The re Is no evidence of mismatched defects. IMPRESSION: Low scintigraphic evidence for acute pulmonary embolism.
--- NOTE | 2020-09-24 11:30 | ECHOF ---
Referral Reason:R06.09 Dyspnea, J44.9 COPD MEASUREMENTS -------- HEIGHT: 152.4 cm WEIGHT: 59.0 kg BP: RVIDd: 3.2 cm (< 3.3) IVSd: 1.4 cm (0.6 - 1.1) LVIDd: 2.8 cm (3.9 - 5.3) LVPWd: 1.3 cm (0.6 - 1.1) IVSs: 1.6 cm LVIDs: 1.5 cm LVPWs: 1.5 cm LAESV Index (A-L): 11.76 ml/m Ao Diam: 2.7 cm (2.0 - 3.7) AV Cusp: 1.6 cm (1.5 - 2.6) MV EXCURSION: 17.918 mm (> 18.000) MV EF SLOPE: 52 mm/s (70 - 150) EPSS: 0.5 cm MV E Dylan: 0.80 m/s MV DecT: 178 ms MV A Dylan: 1.01 m/s MV E/A Ratio: 0.80 RAP: 5.00 mmHg RVSP: 19.39 mmHg FINDINGS -------- Sinus rhythm. This was a technically adequate study. The left ventricular size is normal. There is moderate concentric left ventricular hypertrophy. O verall left ventricular systolic function is normal with, an EF between 55 - 60 %. The diastolic fi lling pattern is normal for the age of the patient {E/E'}. The right ventricle is normal in size. Normal LA size by volume 22+/-6 ml/m2. The right atrial size is normal. Interatrial and interventricular septum intact. There is no evidence of aortic regurgitation. There is no evidence of aortic stenosis. There is trace to mild mitral regurgitation. Mild tricuspid regurgitation present. There is no evidence of pulmonary hypertension. The right v entricular systolic pressure, as measured by Doppler, is 19.39mmHg. There is no pulmonic regurgitation present. The aortic root size is normal. Normal inferior vena cava with normal inspiratory collapse consistent with estimated right atrial pre ssure of 5 mmHg. There is no pericardial effusion. CONCLUSIONS -------- 1. The left ventricular size is normal. 2. There is moderate concentric left ventricular hypertrophy. 3. Overall left ventricular systolic function is normal with, an EF between 55 - 60 %. 4. The diastolic filling pattern is normal for the age of the patient {E/E'} 5. There is trace to mild mitral regurgitation. 6. Mild tricuspid regurgitation present. [employer] REPAIRER: Flora Lozano RDCS
== END | disposition home or self-care (01) ==
LOC: RADNMMAIN 13:17
PROVIDERS: ATTEND Thoracic Surgery (Cardiothoracic Vascular Surgery)
DX: Z01.818 Encounter for other preprocedural examination (principal); I08.1 Rheumatic disorders of both mitral and tricuspid valves; J43.9 Emphysema, unspecified
CPT/HCPCS: 36600; 93306; 71046; 78582; A9540; A9567

== ENCOUNTER → 2021-01-04 | Outpatient (CLI) | payer MEDICARE, OTHER ==
[2021-01-05 07:02] LABS: African American GFR (CKD) 60.6 (60.0-200.0); Anion Gap 16.1 mmol/L (4.00-12.00); BUN/Creat Ratio 29.09 Ratio (12.00-20.00); Calcium 9.8 mg/dL (8.7-10.3); Carbon Dioxide 25.9 mmol/L (21.6-31.8); Non-African American GFR(CKD) 52.3 (60.0-200.0); Potassium 4.7 mmol/L (3.5-5.5)
== END | disposition home or self-care (01) ==
LOC: LABWHC1 15:33
PROVIDERS: ATTEND Internal Medicine
DX: I10 Essential (primary) hypertension (principal)
CPT/HCPCS: 36415; 80048

== ENCOUNTER 2021-03-28 14:44 | Inpatient (IN) | payer MEDICARE, OTHER ==
[2021-03-28] MEDS ORDERED: ASPIRIN 81 MG PO STA (15:20)
--- NOTE | 2021-03-28 15:58 | XR ---
EXAMINATION TYPE: XR chest 2V DATE OF EXAM: 03/28/2021 COMPARISON: 09/23/2020 HISTORY: Chest pain TECHNIQUE: 2 views FINDINGS: There is mild blunting of the costophrenic angles. Heart size is normal. There is no heart failure. There are no hilar masses. There are some surgical clips in both upper lobes. There is linea r density both upper lobes. IMPRESSION: There are small pleural effusions which appear new compared to old exam. Bilateral upper lobe surgery. Normal heart. No suspicious pulmonary mass.
[2021-03-28 16:12] LABS: Basophils # (A) 0.1 k/uL (0-0.2); Basophils % (A) 1 %; Eosinophils # (A) 0.2 k/uL (0-0.7); Eosinophils % (A) 2 %; HCT 37.3 % (34.0-46.0); HGB 11.5 gm/dL (11.4-16.0); Hypochromasia Marked; Lymphocytes # (A) 1.4 k/uL (1.0-4.8); Lymphocytes % (A) 14 %; MCH 26.9 pg (25.0-35.0); MCHC 30.9 g/dL (31.0-37.0); MCV 87.1 fL (80.0-100.0); Mean Platelet Volume 7.1; Monocytes # (A) 0.5 k/uL (0-1.0); Monocytes % (A) 5 %; Neutrophils # (A) 7.7 k/uL (1.3-7.7); Neutrophils % (A) 76 %; Platelet Count 373 k/uL (150-450); RBC 4.29 m/uL (3.80-5.40); RDW 15.4 % (11.5-15.5); WBC 10.2 k/uL (3.8-10.6)
[2021-03-28 16:23] LABS: Albumin 4.3 g/dL (3.5-5.0); Calcium 9.9 mg/dL (8.4-10.2); INR 0.9 (<1.2); Magnesium 2.1 mg/dL (1.6-2.3); Partial Thromboplastin Time 22.7 sec (22.0-30.0); Prothrombin Time 10.2 sec (9.0-12.0); Total Bilirubin 0.6 mg/dL (0.2-1.3); Total Protein 7.2 g/dL (6.3-8.2)
[2021-03-28 16:25] LABS: Potassium 3.9 mmol/L (3.5-5.1)
[2021-03-28] MEDS ORDERED: MORPHINE SULFATE 2 MG/ML SYRINGE IVP STA (17:02)
--- NOTE | 2021-03-28 18:23 | CT ---
EXAMINATION TYPE: CT chest angio for PE DATE OF EXAM: 03/28/2021 COMPARISON: 12/14/2018 HISTORY: GARETT CT DLP: 179 mGycm Automated exposure control for dose reduction was used. CONTRAST: Performed with IV Contrast, patient injected with 64 mL of Isovue 370. There are 3-D post processed images. There are bilateral pleural effusions. Heart size is normal. There is no pericardial effusion. There is some mild atelectasis at the lung bases. There is some contrast reflux into the inferior vena cava . There is normal contrast opacification of the pulmonary arteries. There are no filling defects. There is some airspace consolidation in the anterior right upper lobe. There is also similar smaller infil trate anterior left upper lobe. The thoracic spine is intact. There is no compression fracture. Sternum is intact. IMPRESSION: No evidence of pulmonary embolism. Bilateral upper lobe pneumonia which appears new compared to old exam. Small pleural effusions appear new compared to old exam. There is probably some COPD.
[2021-03-28] MEDS ORDERED: NALOXONE 0.4 MG/ML 1 ML VIAL IV PRN (18:37)
[2021-03-28] MEDS ORDERED: ALBUTEROL NEBULIZED 2.5 MG/3 ML INHALATION PRN (18:40)
[2021-03-28] MEDS ORDERED: NON FORMULARY DRUG (Tiotropium 2.5 Mcg/Puff 10 PUFF Each) INHALATION SCH (18:45)
[2021-03-28] MEDS ORDERED: VANCOMYCIN IV PER PHARMACY 1 EACH MISC MISCELLANE PRN (19:22)
[2021-03-28] MEDS ORDERED: PIPERACILLIN-TAZOBACTAM 3.375 GM in SODIUM CHLORIDE 0.9% 100 ML IVPB SCH (19:30)
[2021-03-28] MEDS ORDERED: VANCOMYCIN 1,000 MG in SODIUM CHLORIDE 0.9% 250 ML IVPB ONE (19:45)
--- NOTE | 2021-03-28 19:55 | HP ---
HISTORY AND PHYSICAL I am covering for Dr. Link. DATE OF SERVICE: 03/28/2021. CHIEF COMPLAINT: Shortness of breath. HISTORY OF PRESENT ILLNESS: This 65-year-old woman with a past medical history of asthma, COPD, history of GERD, hypertension, being followed by Dr. Link and Dr. Murcia in the outpatient setting, apparently recently had lung volume reduction surgery in [facility], [place]. Subsequently patient felt better, but sometime after that the patient was feeling worse and oxygen saturation was dropping; heart rate was increasing, on even mild ambulation. Even the pulse ox was dropping down to 72, and the patient was admitted for further evaluation and treatment. There is no history of any fever, rigors or chills. No history of headache, loss of consciousness, seizures. There has taken COVID-19 vaccination. The patient has not had contact with any infected individual next during , according to her. Chest x-ray was done and CTA was done because of elevated D-dimer. evidence of pneumonia was suspected. Patient admitted for further evaluation and treatment. PAST MEDICAL HISTORY: History of asthma, GERD, hypertension, history of myocardial infarction. HOME MEDICATIONS: Reviewed. They include HydroDIURIL, Spiriva, Respimat, metoprolol, Atrovent, Plavix and ProAir HFA. Doses reviewed. ALLERGIES: CODEINE and SUCCINYLCHOLINE. FAMILY HISTORY: History of uterine cancer in the family. SOCIAL HISTORY: Previous history of smoking. No history of alcohol intake. REVIEW OF SYSTEMS: ENT: No diminished hearing. No diminished vision. CARDIOVASCULAR SYSTEM: As mentioned earlier. RESPIRATORY SYSTEM: As mentioned earlier. GI: No nausea, vomiting, diarrhea. : No dysuria. NERVOUS SYSTEM: No numbness, weakness. ALLERGY/IMMUNOLOGY: No asthma or hay fever. MUSCULOSKELETAL: As mentioned earlier. HEMATOLOGY/ONCOLOGY: No history of anemia. ENDOCRINE: As mentioned earlier. CONSTITUTIONAL: As mentioned earlier. DERMATOLOGY: Negative. RHEUMATOLOGY: Negative. PSYCHIATRY: As mentioned earlier. PHYSICAL EXAMINATION: Patient alert and oriented x3. Pulse is 71, blood pressure 139/87, respiration 22, temperature 97.8, pulse ox 96% on 2 L. HEENT: Conjunctivae normal. Oral mucosa moist. NECK: No jugular venous distention. No carotid bruit. No lymph node enlargement. CARDIOVASCULAR: S1, S2 muffled. RESPIRATION: Breath sounds diminished at the bases. A few crackles. No expiratory wheezing audible. ABDOMEN: Soft, nontender. No mass palpable. LEGS: No edema. No swelling. NERVOUS SYSTEM: Higher functions as mentioned earlier. Moves all 4 limbs. No focal motor or sensory deficit. LYMPHATICS: No lymph node palpable in neck, axillae or groin. SKIN: No ulcer, rash, bleeding. JOINTS: No active deforming arthropathy. LABS: WBC 10.2. Otherwise, D-dimer is 0.76. ASSESSMENT: 1. Possible asthma, chronic obstructive pulmonary disease, acute exacerbation with acute hypoxic respiratory failure with bilateral interstitial pneumonia. Rule out hospital-acquired pneumonia. 2. History of recent bilateral lung volume reduction surgery. 3. Elevated D-dimer without any evidence of pulmonary embolism. 4. Rule out COVID-19 infection. 5. History of asthma. 6. History of gastroesophageal reflux disease. 7. Hypertension. 8. History of myocardial infarction. 9. History of back pain. 10.History of appendectomy. 11.History of anxiety. 12.Remote history of nicotine dependence. 13.FULL CODE. RECOMMENDATIONS AND DISCUSSION: In this 65-year-old woman who presented with multiple complex medical issues, we will monitor the patient closely, continue the current medications. Continue symptomatic treatment. I would recommend pulmonary consultation and also broad-spectrum IV antibiotics, infectious disease evaluation. COVID-19 may be repeated. Otherwise, resume the home medications. Intensive bronchodilator treatment. Cardiology also will be consulted. A 2D echo also will be ordered to rule out the possibility of any concomitant CHF. Discussed with the patient, who understands and agrees. Further recommendations to follow. Prognosis guarded. Dr. Link will follow tomorrow. See orders for further details. MMODL / IJN: [id number] / [facility]
[2021-03-28] MEDS: IPRATROPIUM-ALBUTEROL 3 ML NEB INHALATION SCH (20:38)
[2021-03-28] MEDS: BUDESONIDE 1 MG/2 ML NEBU INHALATION SCH (20:38)
[2021-03-28] MEDS: AZITHROMYCIN 500 MG in SODIUM CHLORIDE 0.9% 250 ML IVPB SCH (20:53)
--- NOTE | 2021-03-28 21:03 | ED ---
General Adult HPI - General Chief complaint: Shortness of Breath Stated complaint: GARETT, lung reduction surgery in OCT Time Seen by Provider: 03/28/21 15:18 Source: patient, RN notes reviewed, old records reviewed Mode of arrival: wheelchair Limitations: no limitations - History of Present Illness Initial comments: Patient is a 65-year-old female with past medical history remarkable for chronic hypoxic respiratory failure requiring home oxygen 2-3 L, COPD, recent lung resection bilaterally, hypertension, asthma, GERD, PR who presents emergency Department complaining of a multiple day history of left-sided chest pain as well as worsening shortness of breath over the last 2 days. Patient lost power and is been using her home portable oxygen machine which doesn't seem to be improving her symptoms. She states she has been feeling short of breath and noticed that her oxygenation at home decrease which is why she came to the emergency department. She describes her left-sided chest pain as sharp and worse with movement. It is palpable. States is been ongoing. Denies any worsening exertion or stress. Denies any lower extremity swelling or edema. Denies any abdominal pain, nausea, vomiting. Denies any lightheadedness, weakness, numbness. His no other acute complaints at this time. Presents emergency department over concern for shortness of breath and chest pain. Denies any history of blood clots. She was evaluated and she was placed in a room. - Related Data Home Medications Medication Instructions Recorded Confirmed Albuterol Sulfate [Proair Hfa] 2 puff INHALATION RT-QID PRN 10/12/18 03/28/21 Ipratropium-Albuterol Nebulize 3 ml INHALATION RT-QID PRN 03/28/21 03/28/21 [Duoneb 0.5 mg-3 mg/3 ml Soln] Losartan [Cozaar] 50 mg PO DAILY 03/28/21 03/28/21 Metoprolol Tartrate [Lopressor] 12.5 mg PO BID 03/28/21 03/28/21 Nitroglycerin Sl Tabs [Nitrostat] 0.4 mg SL Q5M PRN 03/28/21 03/28/21 Tiotropium 2.5 Mcg/Puff [Spiriva 2 puff INHALATION DIRECTED 03/28/21 03/28/21 Respimat 2.5 Mcg] hydroCHLOROthiazide [Hydrodiuril] 25 mg PO DAILY 03/28/21 03/28/21 Previous Rx's Medication Instructions Recorded Clopidogrel [Plavix] 75 mg PO DAILY #30 tablet 10/16/18 Allergies Allergy/AdvReac Type Severity Reaction Status Date / Time codeine AdvReac Itching Verified 03/28/21 18:04 succinylcholine chloride AdvReac CAUSED Verified 03/28/21 18:04 [From Anectine] PARALYSIS -PT COULDN'T MOVE AFTER SURGERY Review of Systems ROS Statement: Those systems with pertinent positive or pertinent negative responses have been documented in the HPI. Review of Systems: CONST: Denies fever EYES: Denies blurry vision ENT: Denies nasal congestion C/V: Endorses chest pain RESP: Endorses shortness of breath GI: Denies abdominal pain : Denies dysuria SKIN: Denies rash. MSK: Denies joint pain. NEURO: Denies headache ROS Other: All systems not noted in ROS Statement are negative. Past Medical History Past Medical History: Asthma, GERD/Reflux, Hypertension, Myocardial Infarction (PR) Additional Past Medical History / Comment(s): BACK PAIN, ANECTINE-CAUSES PT TO BE PARALYZED. WAS TESTED- MOTHER ALSO HAS PROBLEM WITH THIS Last Myocardial Infarction Date:: 1999 History of Any Multi-Drug Resistant Organisms: None Reported Past Surgical History: Appendectomy, Back Surgery, Heart Catheterization, Hysterectomy, Orthopedic Surgery, Tonsillectomy Additional Past Surgical History / Comment(s): HEART CATH X 2, NECK FUSION & LOWER BACK FUSION-PAIN STIMULATOR IN PER PT, SCHUYLER CT, SCHUYLER TENNIS ELBOW, RT HAND TRIGGER FINGER Past Anesthesia/Blood Transfusion Reactions: Previous Problems w/ Anesthesia Additional Past Anesthesia/Blood Transfusion Reaction / Comment(s): anectine Past Psychological History: Anxiety Smoking Status: Never smoker Past Alcohol Use History: None Reported Past Drug Use History: None Reported - Past Family History Mother Family Medical History: Cancer Additional Family Medical History / Comment(s): MOM UTERINE CA Father Family Medical History: Myocardial Infarction (PR) Additional Family Medical History / Comment(s): No GI malignancy or gluten enteropathy General Exam - General Exam Comments Initial Comments: General: Appears in no acute distress. HEAD: Normal with no signs of head trauma. EYES: PERRLA, EOMI, conjunctiva normal, no discharge. ENT: Hearing grossly intact, normal oropharynx. RESPIRATORY: Clear breath sounds bilaterally. No wheezes, rales, or rhonchi. Not hypoxic on home action level. No increased work of breathing. C/V: Regular rate and rhythm. S1 and S2 auscultated, no edema, peripheral pulses 2+ and intact throughout. chest pain is reproducible on palpation ABD: Abd is soft, nontender, nondistended EXT: Normal range of motion, no obvious deformity SKIN: No rashes or lesions observed on exposed skin. NEURO: Alert and oriented 4. No focal deficits. Limitations: no limitations Course Vital Signs 03/28/21 14:54 Temperature 97.8 F Pulse Rate 71 Respiratory 22 Rate Blood Pressure 139/87 O2 Sat by Pulse 96 Oximetry Procedures - Ensign Protocol (Time Out) Nurse: Madeline Segura Medical Decision Making - Medical Decision Making Based on the patient's presentation and physical exam, I'm concerned for possible cardiopulmonary cause for her current symptoms. Therefore we will obtain a cardiac workup: Troponin, EKG, chest x-ray, COVID-19 swab. Patient does not PERC out and has a well's score that is low, and therefore we will obtain a screening d-dimer. Patient's chest pain is likely muscular skeletal nature, she will be administer aspirin as well as morphine for pain control. She was in agreement this plan. She'll be continued on her home nasal cannula o xygen 2 L. She is saturating well at 96%. EKG shows no signs of acute ischemia. Laboratory studies are remarkable for an elevated d-dimer is 0.76. Troponin is negative. Remainder of labs are unre markable including a negative COVID-19 test. Chest x-ray revealed small pleural effusions which are new as well as bilateral upper lobe surgery. Due to the patient's elevated d-dimer, I would like to obtain a CT PE at this time. She was in agreement this plan. CT PE showed no signs of acute pulmonary on was in but did show possible pneumonia in the bilateral upper lobes. On reevaluation, patient remains stable. I believe that due to the new pleural effusions as well as possible pneumonia I would like to admitted to the hospital. Chest pain is improved at this time. Ideology will be consulted for chest pain and we will trend the troponin. Echo was ordered by myself. Patient was in agreement this plan. She'll be given Rocephin as well as azithromycin. I consulted Dr. Chauhan and Cardiology for evaluation the morning. I spoke with the admitting team under Dr. Kim who accepted the patient. Patient was therefore admitted in serous condition. - Lab Data Result diagrams: 03/28/21 15:43 03/28/21 15:43 Lab Results 03/28/21 03/28/21 03/28/21 Range/Units 15:43 15:43 15:43 WBC 10.2 (3.8-10.6) k/uL RBC 4.29 (3.80-5.40) m/uL Hgb 11.5 (11.4-16.0) gm/dL Hct 37.3 (34.0-46.0) % MCV 87.1 (80.0-100.0) fL MCH 26.9 (25.0-35.0) pg MCHC 30.9 L (31.0-37.0) g/dL RDW 15.4 (11.5-15.5) % Plt Count 373 (150-450) k/uL MPV 7.1 Neutrophils % 76 % Lymphocytes % 14 % Monocytes % 5 % Eosinophils % 2 % Basophils % 1 % Neutrophils # 7.7 (1.3-7.7) k/uL Lymphocytes # 1.4 (1.0-4.8) k/uL Monocytes # 0.5 (0-1.0) k/uL Eosinophils # 0.2 (0-0.7) k/uL Basophils # 0.1 (0-0.2) k/uL Hypochromasia Marked PT 10.2 (9.0-12.0) sec INR 0.9 (<1.2) APTT 22.7 (22.0-30.0) sec D-Dimer 0.76 H (<0.60) mg/L FEU Sodium 139 (137-145) mmol/L Potassium 3.9 (3.5-5.1) mmol/L Chloride 101 (98-107) mmol/L Carbon Dioxide 29 (22-30) mmol/L Anion Gap 9 mmol/L BUN 17 (7-17) mg/dL Creatinine 0.87 (0.52-1.04) mg/dL Est GFR (CKD-EPI)AfAm 81 (>60 ml/min/1.73 sqM) Est GFR (CKD-EPI)NonAf 70 (>60 ml/min/1.73 sqM) Glucose 89 (74-99) mg/dL Calcium 9.9 (8.4-10.2) mg/dL Magnesium 2.1 (1.6-2.3) mg/dL Total Bilirubin 0.6 (0.2-1.3) mg/dL AST 19 (14-36) U/L ALT 11 (4-34) U/L Alkaline Phosphatase 94 (38-126) U/L Troponin I (0.000-0.034) ng/mL NT-Pro-B Natriuret Pep pg/mL Total Protein 7.2 (6.3-8.2) g/dL Albumin 4.3 (3.5-5.0) g/dL 03/28/21 03/28/21 Range/Units 15:43 15:43 WBC (3.8-10.6) k/uL RBC (3.80-5.40) m/uL Hgb (11.4-16.0) gm/dL Hct (34.0-46.0) % MCV (80.0-100.0) fL MCH (25.0-35.0) pg MCHC (31.0-37.0) g/dL RDW (11.5-15.5) % Plt Count (150-450) k/uL MPV Neutrophils % % Lymphocytes % % Monocytes % % Eosinophils % % Basophils % % Neutrophils # (1.3-7.7) k/uL Lymphocytes # (1.0-4.8) k/uL Monocytes # (0-1.0) k/uL Eosinophils # (0-0.7) k/uL Basophils # (0-0.2) k/uL Hypochromasia PT (9.0-12.0) sec INR (<1.2) APTT (22.0-30.0) sec D-Dimer (<0.60) mg/L FEU Sodium (137-145) mmol/L Potassium (3.5-5.1) mmol/L Chloride (98-107) mmol/L Carbon Dioxide (22-30) mmol/L Anion Gap mmol/L BUN (7-17) mg/dL Creatinine (0.52-1.04) mg/dL Est GFR (CKD-EPI)AfAm (>60 ml/min/1.73 sqM) Est GFR (CKD-EPI)NonAf (>60 ml/min/1.73 sqM) Glucose (74-99) mg/dL Calcium (8.4-10.2) mg/dL Magnesium (1.6-2.3) mg/dL Total Bilirubin (0.2-1.3) mg/dL AST (14-36) U/L ALT (4-34) U/L Alkaline Phosphatase (38-126) U/L Troponin I <0.012 (0.000-0.034) ng/mL NT-Pro-B Natriuret Pep 795 pg/mL Total Protein (6.3-8.2) g/dL Albumin (3.5-5.0) g/dL - EKG Data -: EKG Interpreted by Me EKG Comments: 12-lead Electrocardiogram Interpretation Note EKG was reviewed and interpreted by myself. 12-lead ECG performed at 1511 is in terpreted by me as revealing normal sinus rhythm at a rate of 76 beats per minute. [place] is normal. LA interval is 124 ms, QRS duration 76 seconds, QTC is 447 ms.. There were no ST or T wave abnormalities to suggest myocardial ischemia or injury. R wave progression across the precordium was satisfactory. By my interpretation this EKG is non-diagnostic for acute ischemia. Disposition Clinical Impression: CAP (community acquired pneumonia), Pleural effusion, Chest pain, COPD (chronic obstructive pulmonary disease), Chronic respiratory failure with hypoxia Disposition: ADMITTED IP TO THIS HOSP Condition: Serious
[2021-03-28] MEDS: HEPARIN SODIUM,PORCINE/PF 5,000 UNIT/0.5 ML SYRINGE SQ SCH (23:43)
[2021-03-28] MEDS: MORPHINE SULFATE 4 MG/ML SYRINGE IV PRN (23:43)
[2021-03-28] MEDS: METOPROLOL TARTRATE 12.5 MG TAB PO SCH (23:44)
[2021-03-29] MEDS: PIPERACILLIN-TAZOBACTAM 3.375 GM in SODIUM CHLORIDE 0.9% 100 ML IVPB SCH ×4 (00:45→20:15)
[2021-03-29] MEDS: ACETAMINOPHEN TAB 325 MG TAB PO PRN (03:00)
[2021-03-29] MEDS: MORPHINE SULFATE 4 MG/ML SYRINGE IV PRN ×4 (04:17→17:49)
[2021-03-29] MEDS: AZITHROMYCIN 500 MG in SODIUM CHLORIDE 0.9% 250 ML IVPB SCH (07:16)
[2021-03-29] MEDS: PANTOPRAZOLE 40 MG TABLET PO SCH (07:16)
[2021-03-29] MEDS: CLOPIDOGREL 75 MG TAB PO SCH (07:17)
[2021-03-29] MEDS: hydroCHLOROthiazide 25 MG TAB PO SCH (07:17)
[2021-03-29] MEDS: LOSARTAN 50 MG TAB PO SCH (07:17)
[2021-03-29] MEDS: HEPARIN SODIUM,PORCINE/PF 5,000 UNIT/0.5 ML SYRINGE SQ SCH ×3 (07:17→20:14)
[2021-03-29] MEDS: BUDESONIDE 1 MG/2 ML NEBU INHALATION SCH ×2 (07:55→20:15)
[2021-03-29] MEDS: IPRATROPIUM-ALBUTEROL 3 ML NEB INHALATION SCH ×4 (07:55→20:15)
--- NOTE | 2021-03-29 08:00 | P.PN ---
Subjective Progress Note Date: 03/29/21 Principal diagnosis: Pneumonia with COPD This is a continue progress on a 65-year-old white female essentially admitted for pneumonia and restaurant distress. Recent upper lobe resection surgery for COPD done and [place]. The patient states since about the 20th of last maninder h, she's been feeling poorly. Pneumonia is noted on CTA. Objective - Vital Signs Vital signs: Vital Signs Temp 97.6 F 03/29/21 07:00 Pulse 66 03/29/21 07:00 Resp 16 03/29/21 07:00 BP 143/71 03/29/21 07:00 Pulse Ox 94 L 03/29/21 07:00 Intake & Output 03/28/21 03/29/21 03/29/21 18:59 06:59 18:59 Weight 57.153 kg 57.153 kg Other: Voiding Method Toilet # Voids 1 - Constitutional General appearance: Present: no acute distress - EENT Eyes: Absent: abnormal pupil - Neck Neck: Absent: lymphadenopathy - Respiratory Respiratory: bilateral: diminished - Cardiovascular Rhythm: regular Heart sounds: abnormal: S1, S2 Abnormal Heart Sounds: Absent: S3 Gallop - Gastrointestinal General gastrointestinal: Present: soft. Absent: tenderness - Integumentary Integumentary: Present: normal - Labs CBC & Chem 7: 03/28/21 15:43 03/28/21 15:43 Labs: Abnormal Lab Results - Last 24 Hours (Table) 03/28/21 03/28/21 Range/Units 15:43 15:43 MCHC 30.9 L (31.0-37.0) g/dL D-Dimer 0.76 H (<0.60) mg/L FEU Assessment and Plan (1) CAP (community acquired pneumonia) Current Visit: Yes Status: Acute Code(s): J18.9 - PNEUMONIA, UNSPECIFIED ORGANISM SNOMED Code(s): 280807786 (2) COPD (chronic obstructive pulmonary disease) Current Visit: Yes Status: Acute Code(s): J44.9 - CHRONIC OBSTRUCTIVE PULMONARY DISEASE, UNSPECIFIED SNOMED Code(s): 97052880 (3) Pleural effusion Current Visit: Yes Status: Acute Code(s): J90 - PLEURAL EFFUSION, NOT ELSEWHERE CLASSIFIED SNOMED Code(s): 64736980 (4) Hypoxia Current Visit: No Status: Acute Code(s): R09.02 - HYPOXEMIA SNOMED Code(s): 658545932 Plan: Continue empiric treatment. Await cardiology input. Continue current regimen of antibiotics. Check CBC and CMP in a.m.
[2021-03-29] MEDS: METOPROLOL TARTRATE 12.5 MG TAB PO SCH ×2 (08:47→20:14)
[2021-03-29 09:05] LABS: Basophils # (A) 0.06 X 10*3/uL (0.00-0.10); Basophils % (A) 0.7 %; Eosinophils # (A) 0.37 X 10*3/uL (0.04-0.35); HCT 34.5 % (37.2-46.3); HGB 9.5 g/dL (12.0-15.0); Lymphocytes # (A) 1.61 X 10*3/uL (0.90-5.00); Lymphocytes % (A) 17.5 %; MCH 25.6 pg (27.0-32.0); MCHC 27.5 g/dL (32.0-37.0); Monocytes # (A) 0.88 X 10*3/uL (0.20-1.00); Monocytes % (A) 9.6 %; Neutrophils # (A) 6.23 X 10*3/uL (1.80-7.70); Neutrophils % (A) 67.9 %; Platelet Count 263 X 10*3/uL (140-440); RBC 3.71 X 10*6/uL (4.10-5.20); RDW 15.3 % (11.5-14.5); WBC 9.18 X 10*3/uL (4.50-10.00)
[2021-03-29 09:06] LABS: African American GFR (CKD) 77.2 (60.0-200.0); Anion Gap 12.6 mmol/L (10.00-18.00); BUN/Creat Ratio 19.44 Ratio (12.00-20.00); Blood Urea Nitrogen 17.5 mg/dL (9.0-27.0); Calcium 8.6 mg/dL (8.7-10.3); Carbon Dioxide 22.4 mmol/L (20.0-27.5); Non-African American GFR(CKD) 66.6 (60.0-200.0)
--- NOTE | 2021-03-29 09:39 | P.CRDCN ---
History of Present Illness Consult date: 03/29/21 History of present illness: HISTORY OF PRESENT ILLNESS: This is a 65-year-old female with a past medical history significant for COPD with recent lung resection in January performed in [place], home oxygen use at 2.5 L, hyperlipidemia, hypertension, and coronary artery disease with previous PCI. Patient follows in the office with Dr. Cagle. We have been asked to see the patient in consultation for chest pain. Patient examined at the bedside. Patient states she has been home from [place] for about two weeks. She has been having intermittent chest pain and shortness of breath since coming home. She reports shortness of breath when she is up ambulating to the bathroom. She reports that her oxygen saturations have been in the 70s when she is up ambulating to the bathroom. She reports chest discomfort when she is SOB. She states it feels like a sharp pain in the middle of her chest. She denies any radiation of the pain. She does report increased pain with deep inspiration and pain with chest wall palpation. EKG reveals sinus mechanism with no signs of acute ischemia Chest xray there are small effusions which appear new compared to exam. Bilateral upper lobe surgery. Normal heart. No suspicious pulmonary mass. Chest CTA: No evidence of PE. Bilateral upper lobe pneumonia which appears new compared to old exam. Small pleural effusions appear new compared to old exam. COPD. Laboratory data: WBC 9.18. Hemoglobin 9.5. Platelet count 263. D-dimer 0.76. Sodium 142. Potassium 4.0. BUN 17. Creatinine 0.9. Troponin negative 3. ProBNP 795. Current home cardiac medications include metoprolol tartrate 12.5 mg twice a day, losartan 50 mg daily, Plavix 75 mg daily Most recent echocardiogram obtained in September 2020 revealed ejection fraction 55- 60%, trace to mild mitral regurgitation, and mild tricuspid regurgitation. Cardiac catheterization history: November 2018 revealing widely patent stent to the mid LAD. Dominant RCA is free of significant disease. Mid circumflex has about a 35% lesion. No other significant disease noted. REVIEW OF SYSTEMS: At the time of my exam: CONSTITUTIONAL: Denies fever or chills. HEENT: Denies blurred vision, vision changes, or eye pain. Denies hemoptysis CARDIOVASCULAR: Denies chest pain. Denies orthopnea. Denies PND. Denies palpitations RESPIRATORY: + shortness of breath. GASTROINTESTINAL: Denies abdominal pain. Denies nausea or vomiting. HEMATOLOGIC: Denies bleeding disorders. GENITOURINARY: Denies any blood in urine. SKIN: Denies pruitis. Denies rash. PHYSICAL EXAM: VITAL SIGNS: Reviewed. GENERAL: Well-developed in no acute distress. HEENT: Head is normocephalic. Pupils are equal, round. Sclerae anicteric. Mucous membranes of the mouth are moist. Neck supple. No JVD or thyromegaly LUNGS: Respirations even and unlabored. Lungs diminished to auscultation bilaterally. HEART: Regular rate and rhythm. S1 and S2 heard. ABDOMEN: Soft. Nondistended. Nontender. EXTREMITIES: Normal range of motion. No clubbing or cyanosis. Peripheral pulses intact. Trace lower extremity edema NEUROLOGIC: Awake and alert. Oriented x 3. ASSESSMENT: Chest pain, troponin negative x 3, appears pleuritic and reproducible Coronary artery disease with previous PCI to LAD COPD with home oxygen use History of lung resection, January 2021 in [place] Hypertension Hyperlipidemia Former nicotine dependence PLAN: Obtain 2D echo to assess cardiac structure and function Resume home cardiac medications Continue to monitor patient overnight Possible stress test tomorrow pending echo results Further recommendations pending patient course Nurse practitioner note has been reviewed by physician. Signing provider agrees with the documented findings, assessment, and plan of care. Past Medical History Past Medical History: Asthma, GERD/Reflux, Hypertension, Myocardial Infarction ([place]) Additional Past Medical History / Comment(s): BACK PAIN, ANECTINE-CAUSES PT TO BE PARALYZED. WAS TESTED- MOTHER ALSO HAS PROBLEM WITH THIS Last Myocardial Infarction Date:: 1999 History of Any Multi-Drug Resistant Organisms: None Reported Past Surgical History: Appendectomy, Back Surgery, Heart Catheterization, Hysterectomy, Orthopedic Surgery, Tonsillectomy Additional Past Surgical History / Comment(s): HEART CATH X 2, NECK FUSION & LOWER BACK FUSION-PAIN STIMULATOR IN PER PT, SCHUYLER CT, SCHUYLER TENNIS ELBOW, RT HAND TRIGGER FINGER Past Anesthesia/Blood Transfusion Reactions: Previous Problems w/ Anesthesia Additional Past Anesthesia/Blood Transfusion Reaction / Comment(s): anectine Past Psychological History: Anxiety Smoking Status: Never smoker Past Alcohol Use History: None Reported Past Drug Use History: None Reported - Past Family History Mother Family Medical History: Cancer Additional Family Medical History / Comment(s): MOM UTERINE [place] Father Family Medical History: Myocardial Infarction ([place]) Additional Family Medical History / Comment(s): No GI malignancy or gluten enteropathy Medications and Allergies Home Medications Medication Instructions Recorded Confirmed Type Albuterol Sulfate [Proair Hfa] 2 puff INHALATION RT-QID PRN 10/12/18 03/28/21 History Clopidogrel [Plavix] 75 mg PO DAILY #30 tablet 10/16/18 03/28/21 Rx Ipratropium-Albuterol Nebulize 3 ml INHALATION RT-QID PRN 03/28/21 03/28/21 History [Duoneb 0.5 mg-3 mg/3 ml Soln] Losartan [Cozaar] 50 mg PO DAILY 03/28/21 03/28/21 History Metoprolol Tartrate [Lopressor] 12.5 mg PO BID 03/28/21 03/28/21 History Nitroglycerin Sl Tabs [Nitrostat] 0.4 mg SL Q5M PRN 03/28/21 03/28/21 History hydroCHLOROthiazide [Hydrodiuril] 25 mg PO DAILY 03/28/21 03/28/21 History Tiotropium 18 Mcg/Puff [Spiriva] 1 puff INHALATION RT-DAILY 03/29/21 03/29/21 History Allergies Allergy/AdvReac Type Severity Reaction Status Date / Time codeine AdvReac Itching Verified 03/28/21 18:04 succinylcholine chloride AdvReac CAUSED Verified 03/28/21 18:04 [From Anectine] PARALYSIS -PT COULDN'T MOVE AFTER SURGERY Physical Exam Vitals: Vital Signs Temp Pulse Pulse Resp BP BP Pulse Ox 03/29/21 07:56 80 03/29/21 07:00 97.6 F 66 16 143/71 94 L 03/29/21 02:07 98.0 F 68 16 168/84 95 03/28/21 22:03 97.7 F 74 16 154/79 98 03/28/21 21:00 76 22 159/71 99 03/28/21 20:00 77 22 184/97 98 03/28/21 19:00 66 22 195/88 100 03/28/21 14:54 97.8 F 71 22 139/87 96 Intake and Output 03/28/21 03/29/21 03/29/21 22:59 06:59 14:59 Other: Voiding Method Toilet # Voids 0 1 Weight 57.153 kg Results 03/29/21 05:03 03/29/21 05:03 Cardiac Enzymes 03/28/21 03/28/21 03/28/21 Range/Units 15:43 15:43 21:09 AST 19 (14-36) U/L Troponin I <0.012 <0.012 (0.000-0.034) ng/mL 03/29/21 Range/Units 00:25 AST (14-36) U/L Troponin I <0.012 (0.000-0.034) ng/mL Coagulation 03/28/21 Range/Units 15:43 PT 10.2 (9.0-12.0) sec APTT 22.7 (22.0-30.0) sec CBC 03/28/21 Range/Units 15:43 WBC 10.2 (3.8-10.6) k/uL RBC 4.29 (3.80-5.40) m/uL Hgb 11.5 (11.4-16.0) gm/dL Hct 37.3 (34.0-46.0) % Plt Count 373 (150-450) k/uL Comprehensive Metabolic Panel 03/28/21 Range/Units 15:43 Sodium 139 (137-145) mmol/L Potassium 3.9 (3.5-5.1) mmol/L Chloride 101 (98-107) mmol/L Carbon Dioxide 29 (22-30) mmol/L BUN 17 (7-17) mg/dL Creatinine 0.87 (0.52-1.04) mg/dL Glucose 89 (74-99) mg/dL Calcium 9.9 (8.4-10.2) mg/dL AST 19 (14-36) U/L ALT 11 (4-34) U/L Alkaline Phosphatase 94 (38-126) U/L Total Protein 7.2 (6.3-8.2) g/dL Albumin 4.3 (3.5-5.0) g/dL Current Medications Generic Name Dose Route Start Last Admin Trade Name Freq PRN Reason Stop Dose Admin Acetaminophen 650 mg 03/28/21 18:37 03/29/21 03:00 Acetaminophen Tab 325 Mg Tab PO 650 mg Q6HR PRN Administration Mild Pain or Fever > 100.5 Albuterol Sulfate 2.5 mg 12/12/21 18:40 Albuterol Nebulized 2.5 Mg/3 Ml INHALATION RT-QID PRN Shortness Of Breath Albuterol/Ipratropium 3 ml 03/28/21 18:40 Ipratropium-Albuterol 3 Ml Neb INHALATION RT-QID PRN Shortness Of Breath Albuterol/Ipratropium 3 ml 03/28/21 22:00 03/29/21 07:55 Ipratropium-Albuterol 3 Ml Neb INHALATION 3 ml RT-QID SHIRLENE Administration Budesonide 1 mg 03/28/21 20:00 03/29/21 07:55 Budesonide 1 Mg/2 Ml Nebu INHALATION 1 mg RT-BID SHIRLENE Administration Clopidogrel Bisulfate 75 mg 03/29/21 09:00 03/29/21 07:17 Clopidogrel 75 Mg Tab PO 75 mg DAILY SHIRLENE Administration Heparin Sodium (Porcine) 5,000 unit 03/29/21 00:00 03/29/21 07:17 Heparin Sodium,Porcine/Pf 5,000 Unit/0.5 Ml Syringe SQ 5,000 unit Q8HR SHIRLENE Administration Hydrochlorothiazide 25 mg 03/29/21 09:00 03/29/21 07:17 Hydrochlorothiazide 25 Mg Tab PO 25 mg DAILY SHIRLENE Administration Azithromycin 500 mg/ Sodium 250 mls @ 250 mls/hr 03/28/21 18:45 03/29/21 0 7:16 Chloride IVPB 250 mls/hr DAILY SHIRLENE Administration Piperacillin Sod/Tazobactam 100 mls @ 25 mls/hr 03/28/21 20:00 03/29/21 03:00 Sod 3.375 gm/ Sodium Chloride IVPB 25 mls/hr Q8H SHIRLENE Administration Vancomycin HCl 1,000 mg/ 250 mls @ 125 mls/hr 03/29/21 12:00 Sodium Chloride IVPB DAILY SHIRLENE Losartan Potassium 50 mg 03/29/21 09:00 03/29/21 07:17 Losartan 50 Mg Tab PO 50 mg DAILY SHIRLENE Administration Metoprolol Tartrate 12.5 mg 03/28/21 21:00 03/28/21 23:44 Metoprolol Tartrate 12.5 Mg Tab PO 12.5 mg BID SHIRLENE Administration Morphine Sulfate 4 mg 03/28/21 18:37 03/29/21 04:17 Morphine Sulfate 4 Mg/Ml Syringe IV 4 mg Q4HR PRN Administration Severe Pain Naloxone HCl 0.2 mg 03/28/21 18:37 Naloxone 0.4 Mg/Ml 1 Ml Vial IV Q2M PRN Opioid Reversal Pantoprazole Sodium 40 mg 03/29/21 07:30 03/29/21 07:16 Pantoprazole 40 Mg Tablet PO Not Given AC-[id number] SHIRLENE Intake and Output 03/28/21 03/29/21 03/29/21 22:59 06:59 14:59 Other: Voiding Method Toilet # Voids 0 1 Weight 57.153 kg 03/28/21 15:43 03/28/21 15:43
[2021-03-29] MEDS: VANCOMYCIN 1,000 MG in SODIUM CHLORIDE 0.9% 250 ML IVPB SCH (11:18)
--- NOTE | 2021-03-29 12:58 | ECHOF ---
Referral Reason:chest pain, LV function MEASUREMENTS -------- HEIGHT: 152.4 cm WEIGHT: 57.2 kg BP: RVIDd: 3.1 cm (< 3.3) IVSd: 1.2 cm (0.6 - 1.1) LVIDd: 3.6 cm (3.9 - 5.3) LVPWd: 1.4 cm (0.6 - 1.1) IVSs: 1.5 cm LVIDs: 2.7 cm LVPWs: 1.8 cm Ao Diam: 2.8 cm (2.0 - 3.7) AV Cusp: 1.5 cm (1.5 - 2.6) LA Diam: 3.2 cm (2.7 - 3.8) MV EXCURSION: 17.354 mm (> 18.000) MV EF SLOPE: 90 mm/s (70 - 150) EPSS: 0.3 cm MV E Dylan: 0.80 m/s MV DecT: 206 ms MV A Dylan: 0.80 m/s MV E/A Ratio: 1.00 RAP: 5.00 mmHg RVSP: 15.17 mmHg FINDINGS -------- Sinus rhythm. This was a technically adequate study. LV size, wall thickness and systolic function are normal, with an EF greater than 55%. The left susan tricular size is normal. The right ventricle is normal in size. Normal LA size by volume 22+/-6 ml/m2. The right atrial size is normal. There is mild aortic valve sclerosis. There is no evidence of aortic regurgitation. Mild mitral annular calcification present. Mild mitral regurgitation is present. Mild tricuspid regurgitation present. Right ventricular systolic pressure is normal at < 35 mmHg. The pulmonic valve was not well visualized. Echo free space represents a pericardial fat pad. CONCLUSIONS -------- 1. LV size, wall thickness and systolic function are normal, with an EF greater than 55%. 2. The left ventricular size is normal. 3. The right ventricle is normal in size. 4. Normal LA size by volume 22+/-6 ml/m2. 5. The right atrial size is normal. 6. There is mild aortic valve sclerosis. 7. Mild mitral annular calcification present. 8. Mild mitral regurgitation is present. 9. Mild tricuspid regurgitation present. 10. The pulmonic valve was not well visualized. 11. Echo free space represents a pericardial fat pad. 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
--- NOTE | 2021-03-29 17:19 | P.CNPUL ---
History of Present Illness Consult date: 03/29/21 Reason for consult: dyspnea, cough, COPD, hypoxemia, pneumonia Chief complaint: Shortness of breath and cough History of present illness: is a 65-year-old female with end-stage lung disease and severe COPD emphysema patient hence the lung volume reduction surgery at [facility], last month patient was in rehab subsequently was discharged him back to [place], patient has been on supplemental oxygen however feeling more short of breath have cough congestion patient was prescribed oral antibiotics and steroids are outpatient without significant relief came back to the hospital And evaluation revealed bilateral upper lobe pneumonia patient has been admitted into the hospital for broad-spectrum antibiotics breathing treatments and IV steroids Review of Systems All systems: negative Past Medical History Past Medical History: Asthma, GERD/Reflux, Hypertension, Myocardial Infarction ([place]) Additional Past Medical History / Comment(s): BACK PAIN, ANECTINE-CAUSES PT TO BE PARALYZED. WAS TESTED- MOTHER ALSO HAS PROBLEM WITH THIS Last Myocardial Infarction Date:: 1999 History of Any Multi-Drug Resistant Organisms: None Reported Past Surgical History: Appendectomy, Back Surgery, Heart Catheterization, Hysterectomy, Orthopedic Surgery, Tonsillectomy Additional Past Surgical History / Comment(s): HEART CATH X 2, NECK FUSION & LOWER BACK FUSION-PAIN STIMULATOR IN PER PT, SCHUYLER CT, SCHUYLER TENNIS ELBOW, RT HAND TRIGGER FINGER Past Anesthesia/Blood Transfusion Reactions: Previous Problems w/ Anesthesia Additional Past Anesthesia/Blood Transfusion Reaction / Comment(s): anectine Past Psychological History: Anxiety Smoking Status: Never smoker Past Alcohol Use History: None Reported Past Drug Use History: None Reported - Past Family History Mother Family Medical History: Cancer Additional Family Medical History / Comment(s): MOM UTERINE [place] Father Family Medical History: Myocardial Infarction ([place]) Additional Family Medical History / Comment(s): No GI malignancy or gluten enteropathy Medications and Allergies Home Medications Medication Instructions Recorded Confirmed Type Albuterol Sulfate [Proair Hfa] 2 puff INHALATION RT-QID PRN 10/12/18 03/28/21 History Clopidogrel [Plavix] 75 mg PO DAILY #30 tablet 10/16/18 03/28/21 Rx Ipratropium-Albuterol Nebulize 3 ml INHALATION RT-QID PRN 03/28/21 03/28/21 History [Duoneb 0.5 mg-3 mg/3 ml Soln] Losartan [Cozaar] 50 mg PO DAILY 03/28/21 03/28/21 History Metoprolol Tartrate [Lopressor] 12.5 mg PO BID 03/28/21 03/28/21 History Nitroglycerin Sl Tabs [Nitrostat] 0.4 mg SL Q5M PRN 03/28/21 03/28/21 History hydroCHLOROthiazide [Hydrodiuril] 25 mg PO DAILY 03/28/21 03/28/21 History Tiotropium 18 Mcg/Puff [Spiriva] 1 puff INHALATION RT-DAILY 03/29/21 03/29/21 History Allergies Allergy/AdvReac Type Severity Reaction Status Date / Time codeine AdvReac Itching Verified 03/28/21 18:04 succinylcholine chloride AdvReac CAUSED Verified 03/28/21 18:04 [From Anectine] PARALYSIS -PT COULDN'T MOVE AFTER SURGERY Physical Exam Vitals: Vital Signs Temp Pulse Pulse Resp BP BP Pulse Ox 03/29/21 15:00 98.1 F 62 16 112/64 99 03/29/21 08:08 82 03/29/21 07:56 80 03/29/21 07:00 97.6 F 66 16 143/71 94 L 03/29/21 02:07 98.0 F 68 16 168/84 95 03/28/21 22:03 97.7 F 74 16 154/79 98 03/28/21 21:00 76 22 159/71 99 03/28/21 20:00 77 22 184/97 98 03/28/21 19:00 66 22 195/88 100 Intake and Output 03/29/21 03/29/21 03/29/21 06:59 14:59 22:59 Intake Total 120 Balance 120 Intake: Oral 120 Other: Voiding Method Toilet Toilet # Voids 1 2 - Constitutional General appearance: average body habitus, cooperative, disheveled - EENT Eyes: EOMI, PERRLA ENT: normal oropharynx Ears: bilateral: normal - Neck Neck: normal ROM Carotids: bilateral: upstroke normal - Respiratory Respiratory: bilateral: diminished - Cardiovascular Rhythm: regular Heart sounds: normal: S1, S2 - Gastrointestinal General gastrointestinal: soft - Neurologic Neurologic: CNII-XII intact - Musculoskeletal Musculoskeletal: gait normal, generalized weakness, strength equal bilaterally - Psychiatric Psychiatric: A&O x's 3, appropriate affect, intact judgment & insight Results - Laboratory Findings CBC and BMP: 03/29/21 05:03 03/29/21 05:03 PT/INR, D-dimer PT 10.2 sec (9.0-12.0) 03/28/21 15:43 INR 0.9 (<1.2) 03/28/21 15:43 D-Dimer 0.76 mg/L FEU (<0.60) H 03/28/21 15:43 Abnormal lab findings: Abnormal Labs 03/28/21 03/28/21 03/29/21 15:43 15:43 05:03 RBC 3.71 L Hgb 9.5 L Hct 34.5 L MCH 25.6 L MCHC 30.9 L 27.5 L RDW 15.3 H Eosinophils # 0.37 H D-Dimer 0.76 H Calcium 03/29/21 05:03 RBC Hgb Hct MCH MCHC RDW Eosinophils # D-Dimer Calcium 8.6 L - Diagnostic Findings Chest x-ray: report reviewed, image reviewed CT scan - chest: report reviewed, image reviewed (Finding as noted above) Assessment and Plan Assessment: Bilateral upper lobe pneumonia likely healthcare associated pneumonia Acute on chronic COPD exacerbation End-stage COPD oxygen dependent Acute on chronic hypoxic respiratory failure Hypertension hypertensive cardiovascular disease Plan: Continue IV antibiotics breathing treatment and IV steroids Continue DVT and peptic ulcer disease prophylaxis Deep breathing sense incentive spirometry Supplemental oxygen Time with Patient: Greater than 30
[2021-03-29] MEDS: methylPREDNISolone SOD SUCCI 40 MG/ML 1 ML VIAL IV SCH (20:14)
[2021-03-29] MEDS: IPRATROPIUM-ALBUTEROL 3 ML NEB INHALATION PRN (20:28)
[2021-03-30] MEDS: MORPHINE SULFATE 4 MG/ML SYRINGE IV PRN ×4 (01:19→13:38)
[2021-03-30] MEDS: IPRATROPIUM-ALBUTEROL 3 ML NEB INHALATION PRN (01:41)
[2021-03-30] MEDS: ACETAMINOPHEN TAB 325 MG TAB PO PRN (02:31)
[2021-03-30] MEDS: PIPERACILLIN-TAZOBACTAM 3.375 GM in SODIUM CHLORIDE 0.9% 100 ML IVPB SCH ×3 (05:17→19:55)
[2021-03-30] MEDS: IPRATROPIUM-ALBUTEROL 3 ML NEB INHALATION SCH ×4 (08:14→20:12)
[2021-03-30] MEDS: BUDESONIDE 1 MG/2 ML NEBU INHALATION SCH ×2 (08:14→20:12)
--- NOTE | 2021-03-30 08:42 | P.PN ---
Subjective Principal diagnosis: Pneumonia with COPD This is a continue progress on a 65-year-old white female essentially admitted for pneumonia and restaurant distress. Recent upper lobe resection surgery for COPD done and [place]. The patient states since about the of last month, she's been feeling poorly. Pneumonia is noted on CTA. Objective - Vital Signs Vital signs: Vital Signs Temp 98.1 F 03/30/21 07:00 Pulse 75 03/30/21 08:32 Resp 18 03/30/21 07:00 BP 97/56 03/30/21 07:00 Pulse Ox 98 03/30/21 08:14 Intake & Output 03/29/21 03/30/21 03/30/21 18:59 06:59 18:59 Intake Total 240 Balance 240 Intake: Oral 240 Other: Voiding Method Toilet Toilet # Voids 1 1 - Constitutional General appearance: Present: average body habitus - EENT Eyes: Absent: abnormal pupil - Neck Neck: Absent: lymphadenopathy - Respiratory Respiratory: bilateral: diminished - Cardiovascular Rhythm: regular Heart sounds: normal: S1, S2 Abnormal Heart Sounds: Absent: S3 Gallop - Gastrointestinal General gastrointestinal: Present: soft. Absent: tenderness - Integumentary Integumentary: Absent: cellulitis - Labs CBC & Chem 7: 03/29/21 05:03 03/29/21 05:03 Labs: Abnormal Lab Results - Last 24 Hours (Table) 03/29/21 03/29/21 Range/Units 05:03 05:03 RBC 3.71 L (4.10-5.20) X 10*6/uL Hgb 9.5 L (12.0-15.0) g/dL Hct 34.5 L (37.2-46.3) % MCH 25.6 L (27.0-32.0) pg MCHC 27.5 L (32.0-37.0) g/dL RDW 15.3 H (11.5-14.5) % Eosinophils # 0.37 H (0.04-0.35) X 10*3/uL Calcium 8.6 L (8.7-10.3) mg/dL Assessment and Plan (1) CAP (community acquired pneumonia) Current Visit: Yes Status: Acute Code(s): J18.9 - PNEUMONIA, UNSPECIFIED ORGANISM SNOMED Code(s): 212152592 (2) COPD (chronic obstructive pulmonary disease) Current Visit: Yes Status: Acute Code(s): J44.9 - CHRONIC OBSTRUCTIVE PULMONARY DISEASE, UNSPECIFIED SNOMED Code(s): 43464786 (3) Pleural effusion Current Visit: Yes Status: Acute Code(s): J90 - PLEURAL EFFUSION, NOT ELSEWHERE CLASSIFIED SNOMED Code(s): 14423241 (4) Hypoxia Current Visit: No Status: Acute Code(s): R09.02 - HYPOXEMIA SNOMED Code(s): 714061633 Plan: Continue empiric treatment. Appreciate consultants inpu Check CBC and CMP in a.m. Anticipate discharge in next 2448 hours
[2021-03-30] MEDS: HEPARIN SODIUM,PORCINE/PF 5,000 UNIT/0.5 ML SYRINGE SQ SCH ×3 (09:19→20:05)
[2021-03-30] MEDS: METOPROLOL TARTRATE 12.5 MG TAB PO SCH ×2 (09:19→20:05)
[2021-03-30] MEDS: PANTOPRAZOLE 40 MG TABLET PO SCH (09:19)
[2021-03-30] MEDS: methylPREDNISolone SOD SUCCI 40 MG/ML 1 ML VIAL IV SCH ×2 (09:20→20:05)
[2021-03-30] MEDS: LOSARTAN 50 MG TAB PO SCH ×2 (09:21→13:34)
[2021-03-30] MEDS: CLOPIDOGREL 75 MG TAB PO SCH (09:22)
[2021-03-30] MEDS: AZITHROMYCIN 500 MG TAB PO SCH (09:22)
[2021-03-30] MEDS: hydroCHLOROthiazide 25 MG TAB PO SCH (09:22)
[2021-03-30 09:38] LABS: HGB 9.4 g/dL (12.0-15.0); MCH 25.8 pg (27.0-32.0); MCHC 28.5 g/dL (32.0-37.0); MCV 90.7 fL (80.0-97.0); Mean Platelet Volume 9.8 fL (9.5-12.2); Platelet Count 281 X 10*3/uL (140-440); RBC 3.64 X 10*6/uL (4.10-5.20); RDW 15.4 % (11.5-14.5)
[2021-03-30] MEDS: VANCOMYCIN 1,000 MG in SODIUM CHLORIDE 0.9% 250 ML IVPB SCH (09:41)
--- NOTE | 2021-03-30 09:46 | P.PN ---
Subjective Progress Note Date: 03/30/21 HISTORY OF PRESENT ILLNESS: This is a 65-year-old female with a past medical history significant for COPD with recent lung resection in January performed in [place], home oxygen use at 2.5 L, hyperlipidemia, hypertension, and coronary artery disease with previous PCI. Patient follows in the office with Dr. Cagle. We have been asked to see the patient in consultation for chest pain. Patient examined at the bedside. Patient states she has been home from [place] for about two weeks. She has been having intermittent chest pain and shortness of breath since coming home. She reports shortness of breath when she is up ambulating to the bathroom. She reports that her oxygen saturations have been in the 70s when she is up ambulating to the bathroom. She reports chest discomfort when she is SOB. She states it feels like a sharp pain in the middle of her chest. She denies any radiation of the pain. She does report increased pain with deep inspiration and pain with chest wall palpation. EKG reveals sinus mechanism with no signs of acute ischemia Chest xray there are small effusions which appear new compared to exam. Bilateral upper lobe surgery. Normal heart. No suspicious pulmonary mass. Chest CTA: No evidence of PE. Bilateral upper lobe pneumonia which appears new compared to old exam. Small pleural effusions appear new compared to old exam. COPD. Laboratory data: WBC 9.18. Hemoglobin 9.5. Platelet count 263. D-dimer 0.76. Sodium 142. Potassium 4.0. BUN 17. Creatinine 0.9. Troponin negative 3. ProBNP 795. Current home cardiac medications include metoprolol tartrate 12.5 mg twice a day, losartan 50 mg daily, Plavix 75 mg daily Most recent echocardiogram obtained in September 2020 revealed ejection fraction 55- 60%, trace to mild mitral regurgitation, and mild tricuspid regurgitation. Cardiac catheterization history: November 2018 revealing widely patent stent to the mid LAD. Dominant RCA is free of significant disease. Mid circumflex has about a 35% lesion. No other significant disease noted. 03/30/2021 Patient examined this morning at the bedside. Patient states her chest pain is improving. She reports mild shortness of breath. Echocardiogram completed revealing ejection fraction 55% with no wall motion abnormalities. Patient is being treated for pneumonia and COPD exacerbation per pulmonary medicine. PHYSICAL EXAM: VITAL SIGNS: Reviewed. GENERAL: Well-developed in no acute distress. HEENT: Head is normocephalic. Pupils are equal, round. Sclerae anicteric. Mucous membranes of the mouth are moist. Neck supple. No JVD or thyromegaly LUNGS: Respirations even and unlabored. Lungs diminished to auscultation bilaterally. HEART: Regular rate and rhythm. S1 and S2 heard. ABDOMEN: Soft. Nondistended. Nontender. EXTREMITIES: Normal range of motion. No clubbing or cyanosis. Peripheral puls es intact. Trace lower extremity edema NEUROLOGIC: Awake and alert. Oriented x 3. ASSESSMENT: Chest pain, troponin negative x 3, appears pleuritic and reproducible Bilateral pneumonia Acute exacerbation of COPD Coronary artery disease with previous PCI to LAD COPD with home oxygen use History of lung resection, January 2021 in [place] Hypertension Hyperlipidemia Former nicotine dependence PLAN: Continue current cardiac medications Continue treatment of pneumonia and COPD exacerbation per pulmonary medicine Patient may follow up outpatient with Dr. Cagle Further recommendations pending patient course Nurse practitioner note has been reviewed by physician. Signing provider agrees with the documented findings, assessment, and plan of care. Objective - Vital Signs Vital signs: Vital Signs Temp 98.1 F 03/30/21 07:00 Pulse 75 03/30/21 08:32 Resp 18 03/30/21 07:00 BP 97/58 03/30/21 09:24 Pulse Ox 98 03/30/21 08:14 Intake & Output 03/29/21 03/30/21 03/30/21 18:59 06:59 18:59 Intake Total 240 Balance 240 Intake: Oral 240 Other: Voiding Method Toilet Toilet # Voids 1 1 - Labs CBC & Chem 7: 03/30/21 05:08 03/29/21 05:03 Labs: Abnormal Lab Results - Last 24 Hours (Table) 03/30/21 Range/Units 05:08 WBC 13.60 H (4.50-10.00) X 10*3/uL RBC 3.64 L (4.10-5.20) X 10*6/uL Hgb 9.4 L (12.0-15.0) g/dL Hct 33.0 L (37.2-46.3) % MCH 25.8 L (27.0-32.0) pg MCHC 28.5 L (32.0-37.0) g/dL RDW 15.4 H (11.5-14.5) %
[2021-03-30 10:55] LABS: ALT 8 U/L (8-44); AST 11 U/L (13-35); Albumin 3.5 g/dL (3.8-4.9); Albumin/Globulin Ratio 1.75 (1.60-3.17); Alkaline Phosphatase 77 U/L (41-126); Blood Urea Nitrogen 15.4 mg/dL (9.0-27.0); Calcium 8.8 mg/dL (8.7-10.3); Carbon Dioxide 26.1 mmol/L (20.0-27.5); Chloride 102 mmol/L (96-109); Glucose 126 mg/dL (70-110); Non-African American GFR(CKD) 58.7 (60.0-200.0); Potassium 4.6 mmol/L (3.5-5.5); Sodium 140 mmol/L (135-145); Total Bilirubin <0.20 mg/dL (0.30-1.20); Total Protein 5.5 g/dL (6.2-8.2)
[2021-03-30] MEDS: HYDROmorphone 1 MG/ML 1 ML SYRINGE IVP PRN ×2 (17:21→20:26)
[2021-03-31] MEDS: HYDROmorphone 1 MG/ML 1 ML SYRINGE IVP PRN ×6 (00:18→21:12)
[2021-03-31] MEDS: PIPERACILLIN-TAZOBACTAM 3.375 GM in SODIUM CHLORIDE 0.9% 100 ML IVPB SCH ×3 (03:34→21:11)
[2021-03-31] MEDS: BUDESONIDE 1 MG/2 ML NEBU INHALATION SCH ×2 (07:38→20:51)
[2021-03-31] MEDS: IPRATROPIUM-ALBUTEROL 3 ML NEB INHALATION SCH ×4 (07:38→20:51)
[2021-03-31] MEDS ORDERED: VANCOMYCIN TROUGH DUE 1 EACH MISC MISCELLANE ONE (08:00)
[2021-03-31] MEDS: METOPROLOL TARTRATE 12.5 MG TAB PO SCH ×2 (08:33→21:11)
[2021-03-31] MEDS: AZITHROMYCIN 500 MG TAB PO SCH (08:33)
[2021-03-31] MEDS: CLOPIDOGREL 75 MG TAB PO SCH (08:34)
[2021-03-31] MEDS: HEPARIN SODIUM,PORCINE/PF 5,000 UNIT/0.5 ML SYRINGE SQ SCH ×2 (08:34→15:18)
[2021-03-31] MEDS: LOSARTAN 50 MG TAB PO SCH (08:34)
[2021-03-31] MEDS: PANTOPRAZOLE 40 MG TABLET PO SCH (08:34)
[2021-03-31] MEDS: methylPREDNISolone SOD SUCCI 40 MG/ML 1 ML VIAL IV SCH ×2 (08:34→21:11)
[2021-03-31] MEDS: hydroCHLOROthiazide 25 MG TAB PO SCH (08:34)
[2021-03-31] MEDS: VANCOMYCIN 1,000 MG in SODIUM CHLORIDE 0.9% 250 ML IVPB SCH (09:52)
--- NOTE | 2021-03-31 10:22 | P.PN ---
Subjective Progress Note Date: 03/31/21 HISTORY OF PRESENT ILLNESS: This is a 65-year-old female with a past medical history significant for COPD with recent lung resection in January performed in [place], home oxygen use at 2.5 L, hyperlipidemia, hypertension, and coronary artery disease with previous PCI. Patient follows in the office with Dr. Cagle. We have been asked to see the patient in consultation for chest pain. Patient examined at the bedside. Patient states she has been home from [place] for about two weeks. She has been having intermittent chest pain and shortness of breath since coming home. She reports shortness of breath when she is up ambulating to the bathroom. She reports that her oxygen saturations have been in the 70s when she is up ambulating to the bathroom. She reports chest discomfort when she is SOB. She states it feels like a sharp pain in the middle of her chest. She denies any radiation of the pain. She does report increased pain with deep inspiration and pain with chest wall palpation. EKG reveals sinus mechanism with no signs of acute ischemia Chest xray there are small effusions which appear new compared to exam. Bilateral upper lobe surgery. Normal heart. No suspicious pulmonary mass. Chest CTA: No evidence of PE. Bilateral upper lobe pneumonia which appears new compared to old exam. Small pleural effusions appear new compared to old exam. COPD. Laboratory data: WBC 9.18. Hemoglobin 9.5. Platelet count 263. D-dimer 0.76. Sodium 142. Potassium 4.0. BUN 17. Creatinine 0.9. Troponin negative 3. ProBNP 795. Current home cardiac medications include metoprolol tartrate 12.5 mg twice a day, losartan 50 mg daily, Plavix 75 mg daily Most recent echocardiogram obtained in September 2020 revealed ejection fraction 55- 60%, trace to mild mitral regurgitation, and mild tricuspid regurgitation. Cardiac catheterization history: November 2018 revealing widely patent stent to the mid LAD. Dominant RCA is free of significant disease. Mid circumflex has about a 35% lesion. No other significant disease noted. 03/30/2021 Patient examined this morning at the bedside. Patient states her chest pain is improving. She reports mild shortness of breath. Echocardiogram completed revealing ejection fraction 55% with no wall motion abnormalities. Patient is being treated for pneumonia and COPD exacerbation per pulmonary medicine. 03/31/2021 Patient examined at the bedside. Her shortness of breath and chest pain have improved. She remains on IV steroids and antibiotics per pulmonary. Vital signs are stable. PHYSICAL EXAM: VITAL SIGNS: Reviewed. GENERAL: Well-developed in no acute distress. HEENT: Head is normocephalic. Pupils are equal, round. Sclerae anicteric. Mucous membranes of the mouth are moist. Neck supple. No JVD or thyromegaly LUNGS: Respirations even and unlabored. Lungs diminished to auscultation bilaterally. HEART: Regular rate and rhythm. S1 and S2 heard. ABDOMEN: Soft. Nondistended. Nontender. EXTREMITIES: Normal range of motion. No clubbing or cyanosis. Peripheral pulses intact. Trace lower extremity edema NEUROLOGIC: Awake and alert. Oriented x 3. ASSESSMENT: Chest pain, troponin negative x 3, appears pleuritic and reproducible Bilateral pneumonia Acute exacerbation of COPD Coronary artery disease with previous PCI to LAD COPD with home oxygen use History of lung resection, January 2021 in [place] Hypertension Hyperlipidemia Former nicotine dependence PLAN: Continue current cardiac medications Continue treatment of pneumonia and COPD exacerbation per pulmonary medicine Patient may follow up outpatient with Dr. Cagle We will follow on an as-needed basis. Please call with questions or concerns. Nurse practitioner note has been reviewed by physician. Signing provider agrees with the documented findings, assessment, and plan of care. Objective - Vital Signs Vital signs: Vital Signs Temp 97.6 F 03/31/21 07:00 Pulse 67 03/31/21 08:00 Resp 18 03/31/21 08:00 BP 149/72 03/31/21 07:00 Pulse Ox 100 03/31/21 07:00 Intake & Output 03/30/21 03/31/21 03/31/21 18:59 06:59 18:59 Intake Total 360 300 Balance 360 300 Intake: Oral 360 300 Other: Voiding Method Toilet Toilet # Voids 1 4 - Labs CBC & Chem 7: 03/30/21 05:08 03/31/21 08:03 Labs: Abnormal Lab Results - Last 24 Hours (Table) 03/30/21 03/31/21 Range/Units 05:08 08:03 Creatinine 1.18 H (0.52-1.04) mg/dL Est GFR (CKD-EPI)NonAf 58.7 L (60.0-200.0) Glucose 126 H (70-110) mg/dL Total Bilirubin <0.20 L (0.30-1.20) mg/dL AST 11 L (13-35) U/L Total Protein 5.5 L (6.2-8.2) g/dL Albumin 3.5 L (3.8-4.9) g/dL
[2021-03-31] MEDS: ACETAMINOPHEN TAB 325 MG TAB PO PRN ×2 (14:00→22:20)
--- NOTE | 2021-03-31 14:36 | P.PN ---
Subjective Principal diagnosis: Pneumonia with COPD This is a continue progress on a 65-year-old white female essentially admitted for pneumonia and respiratory distress. Recent upper lobe resection surgery for COPD done and [place]. The patient states since about the of last month, she's been feeling poorly. Pneumonia is noted on CTA. Appreciate multiple consultants input. Objective - Vital Signs Vital signs: Vital Signs Temp 97.6 F 03/31/21 07:00 Pulse 67 03/31/21 14:00 Resp 18 03/31/21 14:00 BP 149/72 03/31/21 07:00 Pulse Ox 100 03/31/21 07:00 Intake & Output 03/30/21 03/31/21 03/31/21 18:59 06:59 18:59 Intake Total 360 300 Balance 360 300 Intake: Oral 360 300 Other: Voiding Method Toilet Toilet # Voids 1 4 6 - Constitutional General appearance: Absent: average body habitus - EENT Eyes: Absent: ptosis - Neck Neck: Absent: lymphadenopathy - Respiratory Respiratory: bilateral: diminished - Cardiovascular Rhythm: regular Heart sounds: normal: S1, S2 Abnormal Heart Sounds: Absent: S3 Gallop - Gastrointestinal General gastrointestinal: Present: soft. Absent: tenderness - Neurologic Neurologic: Present: CNII-XII intact - Labs CBC & Chem 7: 03/30/21 05:08 03/31/21 08:03 Labs: Abnormal Lab Results - Last 24 Hours (Table) 03/31/21 Range/Units 08:03 Creatinine 1.18 H (0.52-1.04) mg/dL Assessment and Plan (1) CAP (community acquired pneumonia) Current Visit: Yes Status: Acute Code(s): J18.9 - PNEUMONIA, UNSPECIFIED ORGANISM SNOMED Code(s): 580460007 (2) COPD (chronic obstructive pulmonary disease) Current Visit: Yes Status: Acute Code(s): J44.9 - CHRONIC OBSTRUCTIVE PULMONARY DISEASE, UNSPECIFIED SNOMED Code(s): 16523656 (3) Pleural effusion Current Visit: Yes Status: Acute Code(s): J90 - PLEURAL EFFUSION, NOT ELSEWHERE CLASSIFIED SNOMED Code(s): 12192250 (4) Hypoxia Current Visit: No Status: Acute Code(s): R09.02 - HYPOXEMIA SNOMED Code(s): 882898517 Plan: Continue empiric treatment. Appreciate consultants input Check CBC and CMP in a.m. Anticipate discharge in next 24-48 hours
[2021-04-01] MEDS: HYDROmorphone 1 MG/ML 1 ML SYRINGE IVP PRN ×3 (00:45→07:58)
[2021-04-01] MEDS: VANCOMYCIN 1,000 MG in SODIUM CHLORIDE 0.9% 250 ML IVPB SCH ×3 (00:45→15:18)
[2021-04-01] MEDS: HEPARIN SODIUM,PORCINE/PF 5,000 UNIT/0.5 ML SYRINGE SQ SCH ×3 (00:46→15:18)
[2021-04-01] MEDS: PIPERACILLIN-TAZOBACTAM 3.375 GM in SODIUM CHLORIDE 0.9% 100 ML IVPB SCH ×2 (04:00→12:38)
[2021-04-01] MEDS: hydroCHLOROthiazide 25 MG TAB PO SCH (07:58)
[2021-04-01] MEDS: METOPROLOL TARTRATE 12.5 MG TAB PO SCH (07:58)
[2021-04-01] MEDS: PANTOPRAZOLE 40 MG TABLET PO SCH (07:58)
[2021-04-01] MEDS: LOSARTAN 50 MG TAB PO SCH (07:58)
[2021-04-01] MEDS: CLOPIDOGREL 75 MG TAB PO SCH (07:58)
[2021-04-01] MEDS: AZITHROMYCIN 500 MG TAB PO SCH (07:59)
[2021-04-01] MEDS: methylPREDNISolone SOD SUCCI 40 MG/ML 1 ML VIAL IV SCH (07:59)
[2021-04-01] MEDS: BUDESONIDE 1 MG/2 ML NEBU INHALATION SCH (08:48)
[2021-04-01] MEDS: IPRATROPIUM-ALBUTEROL 3 ML NEB INHALATION SCH ×3 (08:48→16:09)
[2021-04-01] MEDS ORDERED: HYDROcodone/APAP 7.5-325MG 1 EACH TAB PO PRN (12:29)
--- NOTE | 2021-04-01 13:25 | P.DS ---
Providers Date of admission: 03/29/21 09:36 Attending physician: Keshawn Link Consults: 03/28/21 19:21 Consult Physician Routine Consulting Provider: Bhanu Murcia Consult Reason/Comments: pneumonia Do you want consulting provider notified?: Yes Primary care physician: Keshawn Link - Discharge Diagnosis(es) (1) CAP (community acquired pneumonia) Current Visit: Yes Status: Acute (2) COPD (chronic obstructive pulmonary disease) Current Visit: Yes Status: Acute (3) Pleural effusion Current Visit: Yes Status: Acute (4) Hypoxia Current Visit: No Status: Acute Hospital Course: This is a discharge summary on a 65-year-old white female essentially admitted for bilateral pneumonia with element of COPD. She recently had partial lobectomy related to COPD reduction surgery done and ago. Since that she's been feeling poorly and was finally admitted. The patient was stabilized. Appreciate multiple consultants input. The patient was placed on appropriate empiric antibiotic treatment and stabilized. She is O2 dependent and will go home in stable condition to follow-up with me in about 5 days. Patient Condition at Discharge: Serious Plan - Discharge Summary Discharge Rx Participant: No New Discharge Prescriptions: New Azithromycin [Zithromax] 500 mg PO DAILY #3 tab Budesonide 1 mg INHALATION BID #60 each Continue Albuterol Sulfate [Proair Hfa] 2 puff INHALATION RT-QID PRN PRN Reason: Shortness Of Breath Clopidogrel [Plavix] 75 mg PO DAILY #30 tablet Losartan [Cozaar] 50 mg PO DAILY Metoprolol Tartrate [Lopressor] 12.5 mg PO BID Nitroglycerin Sl Tabs [Nitrostat] 0.4 mg SL Q5M PRN PRN Reason: Chest Pain Tiotropium 18 Mcg/Puff [Spiriva] 1 puff INHALATION RT-DAILY hydroCHLOROthiazide [Hydrodiuril] 25 mg PO DAILY Ipratropium-Albuterol Nebulize [Duoneb 0.5 mg-3 mg/3 ml Soln] 3 ml INHALATION RT-QID PRN PRN Reason: Shortness Of Breath Discharge Medication List Albuterol Sulfate [Proair Hfa] 2 puff INHALATION RT-QID PRN 10/12/18 [History] Clopidogrel [Plavix] 75 mg PO DAILY #30 tablet 10/16/18 [Rx] Ipratropium-Albuterol Nebulize [Duoneb 0.5 mg-3 mg/3 ml Soln] 3 ml INHALATION RT-QID PRN 03/28/21 [History] Losartan [Cozaar] 50 mg PO DAILY 03/28/21 [History] Metoprolol Tartrate [Lopressor] 12.5 mg PO BID 03/28/21 [History] Nitroglycerin Sl Tabs [Nitrostat] 0.4 mg SL Q5M PRN 03/28/21 [History] hydroCHLOROthiazide [Hydrodiuril] 25 mg PO DAILY 03/28/21 [History] Tiotropium 18 Mcg/Puff [Spiriva] 1 puff INHALATION RT-DAILY 03/29/21 [History] Azithromycin [Zithromax] 500 mg PO DAILY #3 tab 04/01/21 [Rx] Budesonide 1 mg INHALATION BID #60 each 04/01/21 [Rx] Follow up Appointment(s)/Referral(s): Shelly Cagle MD [STAFF PHYSICIAN] - 1 Week [facility],[place] [NON-STAFF] - As Needed (Contact for possible private duty help with cleaning) Keshawn Link MD [Primary Care Provider] - 1 Week [facility],[place] [NON-STAFF] - As Needed (Contacted for a shower chair ) Discharge/Stand Alone Forms: Personal Pulpit Operator Discharge Disposition: HOME SELF-CARE
[2021-04-01 15:43] VITALS: BP 158/74; RESP 22; TEMP 98
--- NOTE | 2021-04-01 15:44 | P.PN ---
Subjective Progress Note Date: 03/31/21 Principal diagnosis: Bilateral upper lobe pneumonia likely healthcare associated pneumonia Acute on chronic COPD exacerbation End-stage COPD oxygen dependent Acute on chronic hypoxic respiratory failure Hypertension hypertensive cardiovascular disease 03/31/2021, patient seen eval examined shortness breath is much better some complaining of the chest tightness due to Bakari present, ongoing congestion and cough but significantly improved compared to time admission, patient remains on broad-spectrum antibiotics with vent: Zosyn and Zithromax, Patient is a 65-year-old female with end-stage lung disease and severe COPD emphysema patient hence the lung volume reduction surgery at [facility], last month patient was in rehab subsequently was discharged him back to [place], patient has been on supplemental oxygen however feeling more short of breath have cough congestion patient was prescribed oral antibiotics and steroids are outpatient without significant relief came back to the hospital And evaluation revealed bilateral upper lobe pneumonia patient has been admitted into the hospital for broad-spectrum antibiotics breathing tr eatments and IV steroids Objective - Vital Signs Vital signs: Vital Signs Temp 98.5 F 03/31/21 15:00 Pulse 77 03/31/21 15:00 Resp 16 03/31/21 15:00 BP 164/78 03/31/21 15:00 Pulse Ox 96 03/31/21 15:00 Intake & Output 03/30/21 03/31/21 03/31/21 18:59 06:59 18:59 Intake Total 360 300 Balance 360 300 Intake: Oral 360 300 Other: Voiding Method Toilet Toilet # Voids 1 4 6 - Exam - Constitutional General appearance: average body habitus, cooperative, disheveled - EENT Eyes: EOMI, PERRLA ENT: normal oropharynx Ears: bilateral: normal - Neck Neck: normal ROM Carotids: bilateral: upstroke normal - Respiratory Respiratory: bilateral: diminished - Cardiovascular Rhythm: regular Heart sounds: normal: S1, S2 - Gastrointestinal General gastrointestinal: soft - Neurologic Neurologic: CNII-XII intact - Musculoskeletal Musculoskeletal: gait normal, generalized weakness, strength equal bilaterally - Psychiatric Psychiatric: A&O x's 3, appropriate affect, intact judgment & insight - Labs CBC & Chem 7: 03/30/21 05:08 04/01/21 06:56 Labs: Abnormal Lab Results - Last 24 Hours (Table) 03/31/21 Range/Units 08:03 Creatinine 1.18 H (0.52-1.04) mg/dL Assessment and Plan Assessment: Bilateral upper lobe pneumonia likely healthcare associated pneumonia Acute on chronic COPD exacerbation End-stage COPD oxygen dependent Acute on chronic hypoxic respiratory failure Hypertension hypertensive cardiovascular disease Symptoms of GERD Plan: Continue IV antibiotics breathing treatment and IV steroids Continue DVT and peptic ulcer disease prophylaxis Deep breathing sense incentive spirometry Supplemental oxygen IV Protonix for symptoms of GERD
--- NOTE | 2021-04-01 15:46 | P.PN ---
Subjective Progress Note Date: 04/01/21 Principal diagnosis: Bilateral upper lobe pneumonia likely healthcare associated pneumonia Acute on chronic COPD exacerbation End-stage COPD oxygen dependent Acute on chronic hypoxic respiratory failure Hypertension hypertensive cardiovascular disease 04/01/2021, patient seen and evaluated examined shortness of breath improved now, still on antibiotics breathing treatments steroids, patient congestion cough is improved, symptoms of the retractor sternal burning sensation have improved as well, 03/31/2021, patient seen eval examined shortness breath is much better some complaining of the chest tightness due to Bakari present, ongoing congestion and cough but significantly improved compared to time admission, patient remains on broad-spectrum antibiotics with vent: Zosyn and Zithromax, Patient is a 65-year-old female with end-stage lung disease and severe COPD em physema patient hence the lung volume reduction surgery at [facility], last month patient was in rehab subsequently was discharged him back to [place], patient has been on supplemental oxygen however feeling more short of breath have cough congestion patient was prescribed oral antibiotics and steroids are outpatient without significant relief came back to the hospital And evaluation revealed bilateral upper lobe pneumonia patient has been admitted into the hospital for broad-spectrum antibiotics breathing treatments and IV steroids Objective - Vital Signs Vital signs: Vital Signs Temp 98.0 F 04/01/21 15:39 Pulse 73 04/01/21 15:39 Resp 22 04/01/21 15:39 BP 158/74 04/01/21 15:39 Pulse Ox 98 04/01/21 15:39 Intake & Output 03/31/21 04/01/21 04/01/21 18:59 06:59 18:59 Intake Total 300 Balance 300 Intake: Oral 300 Other: Voiding Method Toilet Toilet # Voids 6 4 1 - Exam - Constitutional General appearance: average body habitus, cooperative, disheveled - EENT Eyes: EOMI, PERRLA ENT: normal oropharynx Ears: bilateral: normal - Neck Neck: normal ROM Carotids: bilateral: upstroke normal - Respiratory Respiratory: bilateral: diminished - Cardiovascular Rhythm: regular Heart sounds: normal: S1, S2 - Gastrointestinal General gastrointestinal: soft - Neurologic Neurologic: CNII-XII intact - Musculoskeletal Musculoskeletal: gait normal, generalized weakness, strength equal bilaterally - Psychiatric Psychiatric: A&O x's 3, appropriate affect, intact judgment & insight - Labs CBC & Chem 7: 03/30/21 05:08 04/01/21 06:56 Labs: Abnormal Lab Results - Last 24 Hours (Table) 04/01/21 Range/Units 06:56 Creatinine 1.17 H (0.52-1.04) mg/dL Assessment and Plan Assessment: Bilateral upper lobe pneumonia likely healthcare associated pneumonia Acute on chronic COPD exacerbation End-stage COPD oxygen dependent Acute on chronic hypoxic respiratory failure Hypertension hypertensive cardiovascular disease Symptoms of GERD Plan: Continue IV antibiotics breathing treatment and IV steroids can be changed. The time of discharge Continue DVT and peptic ulcer disease prophylaxis Deep breathing sense incentive spirometry Supplemental oxygen IV Protonix for symptoms of GERD can be changed to by mouth at the time of discharge Time with Patient: Greater than 30
[2021-04-01 16:11] VITALS: PULSE 68
[2021-04-02] MEDS ORDERED: VANCOMYCIN TROUGH DUE 1 EACH MISC MISCELLANE ONE (07:00)
== END 2021-04-01 17:20 | disposition home or self-care (01) | DRG 193 ==
LOC: EC 14:44 → 6NMEDSUR 18:37 → OBSVTOIN 03-29 09:36
PROVIDERS: ADMIT Family Medicine; ATTEND Family Medicine
DX: J18.9 Pneumonia, unspecified organism (principal); J96.21 Acute and chronic respiratory failure with hypoxia; J90 Pleural effusion, not elsewhere classified; E78.5 Hyperlipidemia, unspecified; I25.10 Atherosclerotic heart disease of native coronary artery without angina pectoris; I11.9 Hypertensive heart disease without heart failure; I25.2 Old myocardial infarction; J43.9 Emphysema, unspecified; Y95 Nosocomial condition; Z20.822 Contact with and (suspected) exposure to COVID-19; Z79.02 Long term (current) use of antithrombotics/antiplatelets; Z79.899 Other long term (current) drug therapy; Z80.49 Family history of malignant neoplasm of other genital organs; Z82.49 Family history of ischemic heart disease and other diseases of the circulatory system; Z87.891 Personal history of nicotine dependence; Z90.2 Acquired absence of lung [part of]; Z90.49 Acquired absence of other specified parts of digestive tract; Z90.710 Acquired absence of both cervix and uterus; Z98.1 Arthrodesis status; Z98.61 Coronary angioplasty status; Z99.81 Dependence on supplemental oxygen; K21.9 Gastro-esophageal reflux disease without esophagitis
CPT/HCPCS: 36415; 71046; 71275; 80048; 80053; 80202; 82565; 83735; 83880; 84484; 85025; 85027; 85379; 85610; 85730; 87635; 93005; 93306; 94640; 99285

== ENCOUNTER → 2021-09-08 | Outpatient (CLI) | payer MEDICARE, OTHER ==
--- NOTE | 2021-09-08 13:33 | US ---
EXAMINATION TYPE: US kidneys/renal and bladder DATE OF EXAM: 09/08/2021 COMPARISON: NONE CLINICAL HISTORY: R94.4 ABNORMAL RESULTS OF KIDNEY FUNCTION STUDIES. EXAM MEASUREMENTS: Right Kidney: 8.6 x 4.2 x 4.2 cm Left Kidney: 8.4 x 4.1 x 4.1 cm Right Kidney: No hydronephrosis or masses seen Left Kidney: No hydronephrosis or masses seen Bladder: not fully distended, wnl as seen Bilateral Jets seen: yes IMPRESSION: 1. Normal renal ultrasound
== END | disposition home or self-care (01) ==
LOC: RADUSWWP 11:54
PROVIDERS: ATTEND Family Medicine
DX: R94.4 Abnormal results of kidney function studies (principal)
CPT/HCPCS: 76770

== ENCOUNTER → 2022-06-28 | Outpatient (CLI) | payer MEDICARE, OTHER | END | disposition home or self-care (01) | LOC: RADXRMAIN 15:20 | PROVIDERS: ATTEND Orthopaedic Surgery Orthopaedic Surgery of the Spine | DX: Z53.9 Procedure and treatment not carried out, unspecified reason (principal) ==

== ENCOUNTER 2022-07-06 09:37 | Inpatient (IN) | payer MEDICARE, OTHER ==
[2022-07-01 09:46] VITALS: BMI 25.4
[~2022-07-06 09:37] MED LIST changes: -ALPRAZolam 0.25 MG TAB PO PRN; -ALPRAZolam 0.5 MG TAB PO PRN; -ASPIRIN 325 MG TAB PO STA; -ATORVASTATIN 80 MG TAB PO STA; +LIDOCAINE 1% (10MG/ML) FOR IV START INTRADERMA PRN; -NITROGLYCERIN SL TABS 0.4 MG TAB SUBLINGUAL PRN; +ONDANSETRON 4 MG/2 ML VIAL IVP ONE; +ceFAZolin 1,000 MG in SODIUM CHLORIDE 0.9% IRRIGATIO 1,000 ML IRRIGATION PRN
[2022-07-06] MEDS: LACTATED RINGERS 1,000 ML IV SCH (10:41)
[2022-07-06] MEDS ORDERED: LIDOCAINE 0.5%-EPI 1:200,000 50 ML VIAL SQ ONE (11:35)
[2022-07-06] MEDS ORDERED: ROCURONIUM 10 MG/ML (5 ML VIAL) IV ONE (11:35)
[2022-07-06] MEDS ORDERED: ePHEDrine 50 MG/ML 1 ML VIAL ONE (11:35)
[2022-07-06] MEDS ORDERED: THROMBIN (BOVINE) 5,000 UNIT VIAL TOPICAL ONE (11:35)
[2022-07-06] MEDS ORDERED: FUROSEMIDE 10 MG/ML 2 ML VIAL ONE (11:35)
[2022-07-06] MEDS ORDERED: LIDOCAINE 2% INJ 20 MG/ML (2 ML VIAL) ONE (11:35)
[2022-07-06] MEDS ORDERED: PROPOFOL 10 MG/ML 20 ML VIAL IV ONE (11:35)
[2022-07-06] MEDS ORDERED: MIDAZOLAM 2 MG/2 ML VIAL ONE (11:35)
[2022-07-06] MEDS ORDERED: PHENYLEPHRINE-0.9% NACL SYG 1,000 MCG/10 ML SYRINGE ONE (11:35)
[2022-07-06] MEDS ORDERED: fentaNYL (PF) 50 MCG/ML 2 ML AMP ONE (11:35)
[2022-07-06] MEDS ORDERED: GELATIN SPONGE,ABSORB (LARGE) 1 EACH SPONGE TOPICAL ONE (11:35)
[2022-07-06] MEDS ORDERED: LACTATED RINGERS 1,000 ML IV ONE ×4 (12:13→16:20)
[2022-07-06] MEDS ORDERED: MAGNESIUM HYDROXIDE 2,400 MG/10 ML CUP PO PRN ×2 (15:12→15:13)
[2022-07-06] MEDS ORDERED: BENZOCAINE/MENTHOL LOZENG 1 EACH LOZENGE MUCOUS MEM PRN (15:12)
[2022-07-06] MEDS ORDERED: diazePAM 5 MG TAB PO PRN (15:12)
[2022-07-06] MEDS ORDERED: HYDROmorphone 0.5 MG/0.5 ML SYRINGE IVP PRN (15:12)
[2022-07-06] MEDS ORDERED: SENNOSIDES-DOCUSATE SODIUM 1 EACH TAB PO PRN (15:13)
[2022-07-06] MEDS ORDERED: ONDANSETRON 4 MG/2 ML VIAL IVP PRN (15:13)
--- NOTE | 2022-07-06 15:20 | FL ---
EXAMINATION TYPE: FL guidance operating room, XR lumbar spine 2 or 3V DATE OF EXAM: 07/06/2022 CLINICAL HISTORY: Low back pain. TECHNIQUE: Fluoroscopy. Intraoperative 2 views lumbar spine. COMPARISON: None. FINDINGS: Fluoroscopic guidance was provided during L4-L5 fusion procedure performed by Dr. Goodwin. A total of 1 minute 10 seconds of fluoroscopic time was utilized during the procedure and 6 spot imag es was acquired. Total DAP 4902.33 cGy x cm2. Intraoperative images obtained show placement of posterior interpedicular rods and screws and metalli c disc material at L4-L5 level. IMPRESSION: As Above.
--- NOTE | 2022-07-06 15:32 | P.OP ---
Date of Procedure: 07/06/22 Preoperative Diagnosis: Spondylolisthesis L4 5, spinal stenosis L4 5, low back pain, lower extremity radiculopathy, degenerative disc disease, prior decompression fusion L5-S1, prior decompression L4 5 Postoperative Diagnosis: Same Anesthesia: GETA Pathology: none sent Condition: stable Disposition: PACU Description of Procedure: DESCRIPTION OF PROCEDURE(S): BRIEF OPERATIVE NOTE Preoperative Diagnosis: Spondylolisthesis L4 5, spinal stenosis L4 5, low back pain, lower extremity radiculopathy, degenerative disc disease, prior decompression fusion L5-S1, prior decompression L4 5 Postoperative Diagnosis: Same Procedure: Revision Laminectomy and decompression L4 [address] navigation aided Minimally invasive Posterior lat eral decompression and facet fusion L4 5 Minimally invasive Transforaminal lumbar interbody fusion for a 360 fusion L4 5 Discectomy for decompression L4 5 Placement of interbody graft L4 5 Use of computer navigation for fusion Local autogenous bone grafting Aspiration of bone marrow from the vertebral body pedicle L4 on the right Use of bone graft extenders Surgeon: Dr. Goodwin Interior Horticulturist: Cam SHELDON who is present throughout the entire the case persistence during positioning, dissection, exposure, visualization, and all crucial elements of the case as well as closure. Anesthesia: General anesthesia Estimated blood loss: Approximately 250 mL Complications: None apparent Components implanted: K2M minimally invasive [place] pedicle screw system withscrews measuring 6.5 mm in diameter to rods one [place] interbody cage with 10 mL of osteo amp bio4 bone graft substitute and 30 mL of the BX bone fibers to supplement the local autogenous bone graft and bone marrow aspirate Disposition: To recovery room in good stable condition. OPERATIVE INDICATIONS The patient has had severe issues at their lower extremity in her lower back over the past several years with significant worsening over the past several months. She's had a number of surgeries in the past more than 40 years ago with decompressions and decompression and fusion. She had prior fusion L5-S1 and developed recurrent stenosis and spinal listhesis L4 5. She denied having continued pain for several years and Over the past few months the patient had pain at their back and their lower extremities. The patient is having severe radicular symptoms at their lower extremity with weakness. The patient is having significant pain in their back. They are unable to obtain any comfort. We did aggressive conservative treatment with medications therapy and interventional pain management however thery were not having any relief. The patient also showed evidence of a listhesis with some dynamic instability. The patient has been through conservative treatment. She is not having any benefit despite aggressive conservative care. We discussed various treatment options including surgery, and the patient wishes to proceed with surgery We discussed the risk, patient's alternatives and benefits of surgery including but not limited to, risk of bleeding risk of infection, risk of need for further surgery, risk of decreased, loss of motion, muscle function, malunion nonunion, hardware failure, nerve damage, paralysis, heart attack, blindness and . They understood issues with the current pandemic and the possibility of exposure. OPERATIVE SUMMARY After discussing all the risks, patient alternatives and benefits at length, the patient elected to proceed with surgical intervention, signed informed consent, and presented for their procedure. The patient was seen and examined in the preoperative holding area and the surgical site was marked. The patient was given antibiotics and brought to the operating room. The patient was sedated and intubated by anesthesia in standard fashion. The patient was positioned on to the operating room table in a prone position on the appropriate frame which was well-padded and well molded. We were careful to pad any bony prominences and pressure points. We were careful to maintain the patient's cervical spine and good neutral alignment and position throughout. The patient was prepped and draped in a normal standard fashion. An appropriate timeout and keystone protocol performed. We were able to proceed with the surgery. The local wound area was infiltrated with local anesthetic. Over the right iliac crest I was able to make small stab incisions and establish a guidepin screw fixation to the iliac crest 2. I was able place the computer referencing device over the guidepins to establish an appropriate reference point for the [facility] CT navigation. We then were able to place patient in an appropriate drape and do a navigation spin for visualization and 3-D reconstruction of the lumbar spine. I was able utilize C-arm guidance and navigation to establish appropriate position over the pedicles bilaterally at the appropriate levels at L4 5 . With the appropriate levels confirmed was able to make small incisions over the appropriate pedicle sites bilaterally. Utilizing the computer navigation device I was able to establish bony landmarks at the right iliac crest for a bony reference point for the navigation device. I was able to establish a [place]sh[place] needle over the lateral aspect of the pedicle and advanced the trocar into the pedicle being careful not to breech superiorly inferiorly medially or laterally using computer navigation device. Position was confirmed regularly with AP and lateral images on C-arm and with the computer navigation device at the appropriate levels bilaterally at L4 5. I was able to establish the trocar into the pedicle appropriately into the posterior aspect of the vertebral body bilaterally at the appropriate levels. This was done at each of the pedicle positions and each of the vertebrae. At the superior vertebrae I was able to take approximately 25 mL of bone aspiration for use later in the case to supplement the allograft and autograft bone. I was able place the g uidewire into the trocar and into the vertebral body appropriately under C-arm guidance. I took great care to confirm the position with C-arm guidance. We had to do multiple Spens using navigation noted to fully inspect the screws well and place. At L4 and L5 Dissection was taken down over the wire to the appropriate starting position for the screw placed. The appropriate length screw was chosen, threaded over the guidewire and screwed appropriately into the pedicle and vertebral body under C-arm guidance in excellent alignment and position with good bony purchase. This is done at each of the screw sites at the appropriate levels. We did the name neuro monitoring which showed no stimulation except for the L4 screw on the right. This had some stimulation at 7 mA. We inspected that with direct visualization as well as with repeat spin on the CT seen navigation. The screw appeared to be within the bone and without any evidence of penetration into the neural foramen or medially area is likely that he had a small cortical breach but did not have any displacement or malalignment of the hardware. With the screws intact I extended the incision to connect the screw hole sites on the left side I dissected down to establish access over the pars and lamina to the base of the spinous process. I was able to expose the facet joint. The capsule the facet was taken down and showed some facet arthrosis at the joint. I was able to use a combination of curettes and [place] rongeurs and a high- speed drill to take down the facet joint and do a facetectomy. I was able get excellent foraminal decompression and central decompression with undermining across midline to perform a laminectomy centrally and contralaterally. As able get good central decompression. The ligamentum flavum was taken down to further decompress centrally and at bilateral neural foramen. I was able to expose the disc space and visualize the traversing nerve root. Note was made of some disc protrusion and disc herniation that was abutting the traversing nerve root at the level causing further compression of the nerve root. I was able to establish a annulotomy at the appropriate level protecting soft tissue and neural structures. Note was made of some disc desiccation at the disc. I performed a complete discectomy with accommodation of curettes and rasps and scrapers. I was able get good endplate preparation at the disc space. I sized for the appropriate size interbody spacer protecting the soft tissue and neural structures. The wound was copiously irrigated and suctioned dry. There is no evidence of any dural tear or leak. I was able to pack the disc space with local autogenous bone graft as well as a small amount of bone graft which was also placed into the interbody cage itself. Protecting the soft tissue structures and neural structures I was able place the interbody cage in good alignment and good position with good fit and fill at the interbody space. Position was confirmed with C-arm guidance. Good hemostasis maintained. There is no evidence of any dural tear or leak. The wound was irrigated and suctioned dry. With the hardware intact, intraoperative C-arm imaging was again taken which showed good alignment and position of the hardware at the appropriate levels at L4 and L5 . We were then able to measure, contour and place the rods and appropriate hardware bilaterally. I was able to place capcrews, tighten them down, and torque them with the torque screwdriver appropriately. we had some good reduction of the listhesis. With this intact I was able to place the local autogenous bone graft with additional bone graft enhancer as necessary into the posterior lateral gutters over the decorticated transverse processes and facet joints on the contralateral side. The remainder of the bone graft was placed over the facet joint on the contralateral side after taking down the facet joint capsule. With the bone graft intact, a stable construct, and good decompression at the appropriate levels, we were able to proceed with closure. Good hemostasis was maintained. There is no evidence of dural tear or leak. The fascia was closed for a watertight closure. he subcuticular tissue was closed with absorbable suture. The wound was cleaned and dried and dressed with the appropriate dressing. The drapes were broken down. The patient was gently rolled back onto their hospital bed being careful to maintain their cervical spine and good neutral alignment and position. They were woken up by anesthesia, extubated, and brought to the recovery room in good stable condition. The patient will be admitted to the hospital for appropriate postoperative care, medical management and monitoring. We will continue to follow them closely about the postoperative course.
[2022-07-06] MEDS: fentaNYL (PF) 50 MCG/ML 2 ML AMP IV PRN ×2 (15:40→15:50)
[2022-07-06] MEDS ORDERED: fentaNYL (PF) 50 MCG/ML 2 ML AMP IV ONE (16:18)
[2022-07-06] MEDS: SODIUM CHLORIDE 0.9% 1,000 ML IV SCH (16:25)
[2022-07-06] MEDS: HYDROmorphone 1 MG/ML 1 ML SYRINGE IVP PRN ×2 (17:35→20:35)
[2022-07-06] MEDS ORDERED: IPRATROPIUM-ALBUTEROL 3 ML NEB INHALATION SCH (18:00)
[2022-07-06] MEDS: HYDROcodone/APAP 5-325MG 1 EACH TAB PO PRN ×2 (19:51→23:04)
[2022-07-06] MEDS: ALBUTEROL HFA INHALER INHALATION SCH (20:14)
[2022-07-06] MEDS: IPRATROPIUM 0.5 MG/2.5 ML NEBU INHALATION SCH (20:49)
[2022-07-06] MEDS: ALBUTEROL NEBULIZED 2.5 MG/3 ML INHALATION SCH (20:49)
[2022-07-06] MEDS: METOPROLOL TARTRATE 25 MG TAB PO SCH (21:53)
[2022-07-06] MEDS: CYCLOBENZAPRINE 10 MG TAB PO PRN (23:04)
[2022-07-07] MEDS: HYDROmorphone 1 MG/ML 1 ML SYRINGE IVP PRN ×4 (00:35→18:04)
[2022-07-07] MEDS: HYDROcodone/APAP 5-325MG 1 EACH TAB PO PRN (02:44)
[2022-07-07] MEDS: METOPROLOL TARTRATE 25 MG TAB PO SCH ×2 (08:00→22:04)
[2022-07-07] MEDS: hydroCHLOROthiazide 12.5 MG CAP PO SCH (08:00)
[2022-07-07] MEDS: CYCLOBENZAPRINE 10 MG TAB PO PRN (08:09)
[2022-07-07] MEDS: ISOSORBIDE MONONITRATE ER 30 MG TAB.ER.24H PO SCH (08:09)
[2022-07-07] MEDS: ATORVASTATIN 20 MG TAB PO SCH (08:09)
[2022-07-07] MEDS: LOSARTAN 50 MG TAB PO SCH (08:09)
[2022-07-07] MEDS: CLOPIDOGREL 75 MG TAB PO SCH (08:09)
[2022-07-07] MEDS: SENNOSIDES-DOCUSATE SODIUM 1 EACH TAB PO SCH (08:10)
[2022-07-07] MEDS: IPRATROPIUM 0.5 MG/2.5 ML NEBU INHALATION SCH ×4 (08:19→20:16)
[2022-07-07] MEDS: ALBUTEROL NEBULIZED 2.5 MG/3 ML INHALATION SCH ×4 (08:19→20:16)
--- NOTE | 2022-07-07 08:54 | P.CONS ---
History of Present Illness - Reason for Consult Consult date: 07/07/22 Medical management - History of Present Illness This is a 66-year-old female who is admitted yesterday for decompression and fusion L4/[address] Good[address]. Patient has an extensive history with her lower back. Past medical history includes asthma, GERD, hypertension, and hyperlipidemia. Patient is seen this morning laying in bed. She does report she is very uncomfortable and pain is not well controlled. Vitals have been stable. Review of Systems Constitutional: Denies chills, Denies fever Cardiovascular: Denies chest pain, Denies dyspnea on exertion Respiratory: Denies cough, Denies dyspnea Gastrointestinal: Denies abdominal pain, Denies constipation, Denies diarrhea Musculoskeletal: Reports low back pain, Denies arm numbness/tingling Neurological: Denies headaches, Denies weakness Past Medical History Past Medical History: Asthma, GERD/Reflux, Hyperlipidemia, Hypertension, Myocardial Infarction ([place]) Additional Past Medical History / Comment(s): SOB at times, 02 use at night and prn, 2.5-3L. Back pain. Migraines. Last Myocardial Infarction Date:: 1999 History of Any Multi-Drug Resistant Organisms: None Reported Past Surgical History: Appendectomy, Back Surgery, Heart Catheterization, Heart Catheterization With Stent, Hysterectomy, Orthopedic Surgery, Tonsillectomy Additional Past Surgical History / Comment(s): HEART CATH X2, 1 cardiac stent, NECK FUSION, LOWER BACK FUSION, PAIN STIMULATOR INSERTED AND LATER REMOVED, BILATERAL CARPAL TUNNEL, BILATERAL TENNIS ELBOW, RIGHT HAND TRIGGER FINGER, bilateral lung reduction. Past Anesthesia/Blood Transfusion Reactions: Previous Problems w/ Anesthesia, Family History of Problems w/ Anesthesia, Motion Sickness Additional Past Anesthesia/Blood Transfusion Reaction / Comm: Patient, Mother and 2 sisters have problems with Anectine. Date of Last Stent Placement:: Unknown Past Psychological History: Anxiety Smoking Status: Former smoker Past Alcohol Use History: None Reported Additional Past Alcohol Use History / Comment(s): QUIT SMOKING IN 2001, SMOKED 1/2 PPD FROM A TEEN. Past Drug Use History: None Reported - Past Family History Sister(s) Family Medical History: Cancer Additional Family Medical History / Comment(s): Breast cancer. Mother Family Medical History: Cancer Additional Family Medical History / Comment(s): Uterine cancer. Father Family Medical History: Myocardial Infarction ([place]) Additional Family Medical History / Comment(s): No GI malignancy or gluten enteropathy. Medications and Allergies Home Medications Medication Instructions Recorded Confirmed Type Albuterol Sulfate [Proair Hfa] 2 puff INHALATION QID 10/12/18 07/06/22 History Clopidogrel [Plavix] 75 mg PO DAILY #30 tablet 10/16/18 07/06/22 Rx Ipratropium-Albuterol Nebulize 3 ml INHALATION QID 03/28/21 07/06/22 History [Duoneb 0.5 mg-3 mg/3 ml Soln] Nitroglycerin Sl Tabs [Nitrostat] 0.4 mg SL Q5M PRN 03/28/21 07/06/22 History hydroCHLOROthiazide [Hydrodiuril] 10 mg PO DAILY 03/28/21 07/06/22 History Isosorbide Mononitrate [Isosorbide 30 mg PO DAILY 05/27/22 07/06/22 History Mononitrate ER] Losartan Potassium 100 mg PO DAILY 05/27/22 07/06/22 History Metoprolol Tartrate [Lopressor] 25 mg PO BID 05/27/22 07/06/22 History Rosuvastatin Calcium 10 mg PO DAILY 05/27/22 07/06/22 History Allergies Allergy/AdvReac Type Severity Reaction Status Date / Time codeine AdvReac Itching Verified 07/06/22 10:15 succinylcholine chloride AdvReac CAUSED Verified 07/06/22 10:15 [From Anectine] PARALYSIS -PT COULDN'T MOVE AFTER SURGERY Physical Exam Vitals: Vital Signs Temp Pulse Pulse Pulse Resp BP BP 07/07/22 08:29 68 18 07/07/22 08:22 67 18 07/07/22 07:27 97.9 F 62 18 95/57 07/07/22 02:00 97.7 F 57 L 17 107/66 07/06/22 20:50 07/06/22 20:02 66 130/72 07/06/22 19:49 72 121/72 07/06/22 19:18 66 140/60 07/06/22 19:03 65 149/63 07/06/22 18:33 65 150/73 07/06/22 18:17 58 L 127/77 07/06/22 18:03 56 L 130/59 07/06/22 17:48 57 L 131/55 07/06/22 17:33 63 140/65 07/06/22 17:18 62 139/70 07/06/22 16:45 67 16 138/66 07/06/22 16:30 61 16 120/77 07/06/22 16:15 69 16 141/61 07/06/22 16:00 64 16 148/60 07/06/22 15:47 58 L 16 156/65 07/06/22 15:30 62 16 161/71 07/06/22 15:15 97 F L 54 L 16 152/57 07/06/22 10:13 97.7 F 73 20 198/87 Pulse Ox 07/07/22 08:29 07/07/22 08:22 97 07/07/22 07:27 99 07/07/22 02:00 98 07/06/22 20:50 100 07/06/22 20:02 99 07/06/22 19:49 97 07/06/22 19:18 100 07/06/22 19:03 98 07/06/22 18:33 100 07/06/22 18:17 100 07/06/22 18:03 100 07/06/22 17:48 100 07/06/22 17:33 100 07/06/22 17:18 99 07/06/22 16:45 97 07/06/22 16:30 97 07/06/22 16:15 96 07/06/22 16:00 100 07/06/22 15:47 100 07/06/22 15:30 99 07/06/22 15:15 100 07/06/22 10:13 97 Intake and Output 07/06/22 07/07/22 07/07/22 22:59 06:59 14:59 Intake Total 400 Output Total 500 400 Balance -100 -400 Intake: IV 300 Intake, IV Titration 100 Amount Lactated Ringers 1,000 ml 100 @ 0 mls/hr IV .[facility] Rx#:[id number] Output: Urine 500 400 Other: Weight 64.9 kg - Constitutional General appearance: cooperative, no acute distress - EENT Eyes: EOMI, PERRLA - Neck Neck: no lymphadenopathy, normal ROM, no rigidity - Respiratory Respiratory: bilateral: CTA - Cardiovascular Rhythm: regular Heart sounds: normal: S1, S2 - Gastrointestinal General gastrointestinal: soft, no tenderness - Integumentary Integumentary: normal, normal turgor - Neurologic Neurologic: CNII-XII intact - Psychiatric Psychiatric: A&O x's 3, appropriate affect, intact judgment & insight Assessment and Plan (1) Spinal stenosis at L4-L5 level Current Visit: Yes Status: Acute Code(s): M48.061 - SPINAL STENOSIS, LUMBAR REGION WITHOUT NEUROGENIC KINA SNOMED Code(s): 93999686 (2) Spondylolisthesis, lumbar region Current Visit: Yes Status: Acute Code(s): M43.16 - SPONDYLOLISTHESIS, LUMBAR REGION SNOMED Code(s): 151523405013324 (3) Low back pain Current Visit: Yes Status: Acute Code(s): M54.50 - LOW BACK PAIN, UNSPECIFIED SNOMED Code(s): 218192809 (4) Hypertension Current Visit: Yes Status: Acute Code(s): I10 - ESSENTIAL (PRIMARY) HYPERTENSION SNOMED Code(s): 37059720 (5) Hyperlipidemia Current Visit: Yes Status: Acute Code(s): E78.5 - HYPERLIPIDEMIA, UNSPECIFIED SNOMED Code(s): 49616775 Plan: Home medications reconciled. Maintain adequate pain control. Patient seen and evaluated by nurse practitioner, physician in agreement with plan
--- NOTE | 2022-07-07 10:24 | P.PN ---
Progress Note - Text Progress Note Date: 07/07/22 Postoperative day #1 Patient is seen and examined today at bedside. The patient has some pain around the surgical site as expected. Pain is being controlled with medication, But she says she had a very difficult time last night and in recovery. His morning she feels like she is significantly better but still having considerable pain.She is denying any nausea or vomiting. She denies any chest pain. She is wearing oxygen Physical Exam Afebrile with stable vital signs Abdomen is soft nontender. Chest has good excursion deep and space expiration The incision site is clean dry and intact. No erythema there is no purulence. Extremities have not had neurologic change from prior to surgery.She has sustained dorsal flexion plantar flexion and EHL intact in her bilateral lower extremities Calves and thighs were soft nontender without evidence of DVT. Assessment/Plan Postoperative day #1 status postMinimally invasive decompression and fusion L4 5 for her spondylolisthesis with stenosis and lower extremity radiculopathy Patient is progressing Somewhat slowlyas expected from the surgery. She has had multiple spine surgeries and has some history of anxiety. Her pain seems to be improving this morning. She says that she has troubles with [place] but is able tolerate hydrocodone. I tried to explain to her that these are essentially the same medicine and we will see how she does with a hydrocodone 7.5 as would like to try to wean her off of the Dilaudid Over the next day or 2. We will continue to increase the patient's mobilization with therapy. Hopefully she will mobilize and we will be able to get the [place] out We will continue pain control with oral or IV medications. We'll continue to follow patient closely.
[2022-07-07 10:41] LABS: Basophils # (A) 0.07 X 10*3/uL (0.00-0.10); Basophils % (A) 1.2 %; Eosinophils # (A) 0.22 X 10*3/uL (0.04-0.35); Eosinophils % (A) 3.9 %; HCT 46.7 % (37.2-46.3); HGB 15.7 g/dL (12.0-15.0); Immature Grans, Automated 0.2 %; Lymphocytes # (A) 2.08 X 10*3/uL (0.90-5.00); Lymphocytes % (A) 36.4 %; MCH 31.6 pg (27.0-32.0); MCHC 33.6 g/dL (32.0-37.0); Mean Platelet Volume 9.5 fL (9.5-12.2); Monocytes # (A) 0.53 X 10*3/uL (0.20-1.00); Monocytes % (A) 9.3 %; NRBC Per 100 WBC 0 /100 WBCS (0.0-0.0); Platelet Count 256 X 10*3/uL (140-440); RBC 4.97 X 10*6/uL (4.10-5.20); RDW 12.2 % (11.5-14.5); WBC 5.71 X 10*3/uL (4.50-10.00)
[2022-07-07] MEDS: HYDROcodone/APAP 7.5-325MG 1 EACH TAB PO PRN ×2 (13:10→19:50)
[2022-07-07] MEDS ORDERED: SODIUM CHLORIDE 0.9% 500 ML 500 ML IV ONE (14:06)
[2022-07-07 15:08] LABS: African American GFR (CKD) 31.1 (60.0-200.0); Anion Gap 15.6 mmol/L (10.00-18.00); BUN/Creat Ratio 18.68 Ratio (12.00-20.00); Blood Urea Nitrogen 35.5 mg/dL (9.0-27.0); Calcium 8.4 mg/dL (8.7-10.3); Carbon Dioxide 20.4 mmol/L (20.0-27.5); Non-African American GFR(CKD) 26.8 (60.0-200.0); Potassium 5.1 mmol/L (3.5-5.5)
[2022-07-07] MEDS: SODIUM CHLORIDE 0.9% 1,000 ML IV SCH (18:06)
[2022-07-08] MEDS: HYDROcodone/APAP 7.5-325MG 1 EACH TAB PO PRN ×4 (00:05→16:42)
[2022-07-08] MEDS: LACTATED RINGERS 1,000 ML IV SCH ×2 (04:58→09:42)
[2022-07-08] MEDS: IPRATROPIUM 0.5 MG/2.5 ML NEBU INHALATION SCH ×4 (08:03→20:49)
[2022-07-08] MEDS: ALBUTEROL NEBULIZED 2.5 MG/3 ML INHALATION SCH ×4 (08:04→20:48)
--- NOTE | 2022-07-08 08:40 | P.PN ---
Progress Note - Text Progress Note Date: 07/08/22 Orthopedic Spine History of present illness: Patient is a pleasant 66-year-old female who is seen and examined at the bedside following posterior lateral decompression and fusion performed Monday. Patient states they are doing okay post operatively. She discontinued some difficulty of pain control. Her pain is most significant at the right side of her lumbar spine. She was receiving IV Dilaudid but after receiving Dilaudid she is having significant hypotension yesterday. They have reduced giving IV Dilaudid and controlling her pain with hydrocodone 7.5 mg/325 mg. Her blood pressure has improved this morning. Currently does not complain of nausea, vomiting, fever, or chills. Patient is eating and voiding freely without difficulty. Patient has been increasing her mobility but significantly slowly. Physical therapy states it took the patient approximate 1 hour to ambulate to the restroom yesterday. Patient also has stairs at home. Patient does not wish to discharge to a rehabilitation facility. She will be willing to discharge home with home care. Patient continues to be seen and examined by medicine for her other medical diagnoses. Physical Exam Lumbar Fusion: Status post surgical day number Patient is awake, alert, and oriented 3 Vital signs stable Good chest excursion with deep inspiration and expiration Abdomen soft nontender Dorsiflexion, plantarflexion, and extensor hallucis longus positive sustained bilaterally No signs or symptoms of DVT; no calf pain; pneumatic cuffs intact bilateral lower extremities Optifoam dressings are clean, dry, and intact over the lumbar spine and right iliac crest; no erythema, purulence, or signs of infection Neurovascularly intact bilaterally lower extremities Assessment: Status post L4-5 minimally invasive posterior lateral decompression and fusion with transforaminal lumbar interbody fusion Low back pain L4-5 spondylolisthesis L4-5 spinal stenosis Lower extremity radiculopathy Lumbar degenerative disc disease History of previous L5-S1 decompression fusion History of previous L4 to S5 decompression Hypotension postoperatively History of hypertension Hyperlipidemia History of myocardial infarction with cardiac stent Currently on anticoagulation long-term use with Plavix Plan: 1. Ambulate as tolerated; work with Physical Therapy to increase mobilization; patient must be able to ambulate stairs prior to discharge home 2. Continue pain control with oral medications; patient has had more difficulty with pain control since the reduction of IV pain medications, however, her blood pressure has improved with oral medications. On IV Dilaudid she was having significant hypotension yesterday. We will continue try to avoid providing IV Dilaudid for pain control. MAPS has been reviewed today, 07/08/2022, with an Overall Overdose Risk Score of 210. An "Opiod Start Talking" Form has been signed and placed in the patient's chart. A prescription has been written for hydrocodone 7.5 mg/325 mg, 1 tab, every 4 hours as needed for acute pain, dispense #42. Prescription was also written for cyclobenzaprine 10 mg, take 1 tab 3 times a day as needed for muscle spasm, dispensed #60. These medications are sent to the [facility] pharmacy located within for the request of the patient. 3. Dressings to remain intact with Optifoam; patient may shower with dressings intact 4. Medical management can continue to manage patient for patient's other medical diagnoses including hyperlipidemia and hypertension 5. We will continue to follow the patient closely; patient continues to have difficulty with mobilization and ambulation postoperatively. She has been working with physical therapy and is progressing but significantly slowly. We did discuss she has stairs at home and must be able to ambulate stairs prior to discharge home. She has been utilizing a walker. She continues to have some difficulty with pain control but IV Dilaudid has been causing significant hypotension. Her blood pressure has been better controlled with oral hydrocodone 7.5 mg/325 mg, but the patient does not feel her pain has been as well controlled as it was the IV Dilaudid. We did discuss we will try to continue managing her pain with oral medications while avoiding IV Dilaudid given her difficulty with hypotension with the IV Dilaudid medication. I do not feel the patient is ready for discharge home. Patient will continue to remain in the hospital until her symptoms improve and her pain is better controlled and she is able to ambulate and mobilize better. We will plan to have the patient be admitted to in patient status during her admission. Depending on her progress we patient may plan to be discharged home tomorrow, we may plan for discharge home as early as tomorrow, 07/09/2022. We did discuss patient will need clearance by medicine prior to discharge. 6. Consultation has been placed with case management for discharge planning for home health services. 7. Patient can follow-up with Cam Thrasher PA-C or Dr. He Goodwin at [facility] in 2-3 weeks following discharge
[2022-07-08] MEDS: hydroCHLOROthiazide 12.5 MG CAP PO SCH (09:41)
[2022-07-08] MEDS: LOSARTAN 50 MG TAB PO SCH (09:41)
[2022-07-08] MEDS: METOPROLOL TARTRATE 25 MG TAB PO SCH ×2 (09:41→20:40)
[2022-07-08] MEDS: ISOSORBIDE MONONITRATE ER 30 MG TAB.ER.24H PO SCH (09:41)
[2022-07-08] MEDS: SENNOSIDES-DOCUSATE SODIUM 1 EACH TAB PO SCH (09:54)
[2022-07-08] MEDS: CLOPIDOGREL 75 MG TAB PO SCH (09:54)
[2022-07-08] MEDS: ATORVASTATIN 20 MG TAB PO SCH (09:54)
[2022-07-08] MEDS: FAMOTIDINE 20 MG TAB PO SCH (09:54)
[2022-07-08] MEDS: SODIUM CHLORIDE 0.9% 1,000 ML IV SCH (10:07)
[2022-07-08 14:56] LABS: African American GFR (CKD) 40 (>60 ml/min/1.73 sqM); Anion Gap 6 mmol/L; Blood Urea Nitrogen 42 mg/dL (7-17); Calcium 7.6 mg/dL (8.4-10.2); Carbon Dioxide 24 mmol/L (22-30); Chloride 108 mmol/L (98-107); Glucose 101 mg/dL (74-99); Non-African American GFR(CKD) 35 (>60 ml/min/1.73 sqM); Potassium 4.1 mmol/L (3.5-5.1); Sodium 138 mmol/L (137-145)
[2022-07-08] MEDS: CYCLOBENZAPRINE 10 MG TAB PO PRN (16:42)
[2022-07-09] MEDS: HYDROcodone/APAP 7.5-325MG 1 EACH TAB PO PRN ×4 (00:16→20:12)
[2022-07-09] MEDS: NITROGLYCERIN SL TABS 0.4 MG TAB SUBLINGUAL PRN ×2 (06:47→09:07)
--- NOTE | 2022-07-09 07:02 | PN ---
PROGRESS NOTE DATE OF SERVICE: 07/08/2022 SUBJECTIVE: This is a 66-year-old woman who was admitted after back surgery, is being closely monitored. No chest pain, no palpitations, no fever. OBJECTIVE: VITAL SIGNS: Pulse is 91, blood pressure 130/26, respirations 17. CHEST: Clear to auscultation. CARDIOVASCULAR: S1, S2. ABDOMEN: Soft. BACK: Status post surgery. LABORATORY DATA: Reviewed. ASSESSMENT: 1. Status post spinal stenosis, L4-L5 surgery. 2. Low back pain. 3. Hypertension. 4. Hyperlipidemia. 5. Multiple medications. RECOMMENDATIONS: Recommended to continue current management and continue symptomatic treatment. Resume the home medication on discharge. DVT prophylaxis. Closely follow with Dr. Link in the outpatient setting. Further recommendations to follow. MMBRANDONL / IJN: [id number] / MTDD
[2022-07-09] MEDS: LACTATED RINGERS 1,000 ML IV SCH (07:58)
[2022-07-09] MEDS: SODIUM CHLORIDE 0.9% 1,000 ML IV SCH ×2 (07:58→09:08)
[2022-07-09] MEDS: ALBUTEROL NEBULIZED 2.5 MG/3 ML INHALATION SCH ×4 (08:33→21:57)
[2022-07-09] MEDS: IPRATROPIUM 0.5 MG/2.5 ML NEBU INHALATION SCH ×4 (08:33→21:57)
[2022-07-09] MEDS: CYCLOBENZAPRINE 10 MG TAB PO PRN (09:07)
[2022-07-09] MEDS: CLOPIDOGREL 75 MG TAB PO SCH (09:07)
[2022-07-09] MEDS: FAMOTIDINE 20 MG TAB PO SCH (09:07)
[2022-07-09] MEDS: SENNOSIDES-DOCUSATE SODIUM 1 EACH TAB PO SCH (09:07)
[2022-07-09] MEDS: LOSARTAN 50 MG TAB PO SCH (09:07)
[2022-07-09] MEDS: METOPROLOL TARTRATE 25 MG TAB PO SCH ×2 (09:07→20:13)
[2022-07-09] MEDS: ISOSORBIDE MONONITRATE ER 30 MG TAB.ER.24H PO SCH (09:07)
[2022-07-09] MEDS: ATORVASTATIN 20 MG TAB PO SCH (09:08)
--- NOTE | 2022-07-09 09:47 | P.PN ---
Subjective Progress Note Date: 07/09/22 Principal diagnosis: Lumbar stenosis. Patient is a pleasant 66-year-old female who is seen and examined at the bedside following posterior lateral decompression and fusion performed Monday. The patient is complaining of some chest pain this morning she has had cardiac workup which is negative thus far. The patient states that she is not getting up to the bathroom independently. She is requiring assistance for ambulation. She states that she is having significant pain. Vital signs are stable. Patient continues to be seen and examined by medicine for her other medical diagnoses. Objective - Vital Signs Vital signs: Vital Signs Temp 98.6 F 07/09/22 06:40 Pulse 84 07/09/22 08:48 Resp 18 07/09/22 06:40 BP 142/61 07/09/22 06:40 Pulse Ox 98 07/09/22 08:33 FiO2 Intake & Output 07/08/22 07/09/22 07/09/22 18:59 06:59 18:59 Other: Voiding Method Toilet Bedside Commode # Voids 2 2 1 - Exam This is a pleasant 66-year-old female in no acute distress. She is complaining of anterior chest pain. Respirations are normal. She is alert and oriented 3. Exam of the lumbar spine reveals that her dressing is clean, dry and intact. There is no surrounding erythema or ecchymosis. Exam of the lower extremities reveals no deformity. She has full foot and ankle motion bilaterally. There is mild weakness noted with dorsiflexion against resistance. No neurologic deficits noted. - Labs CBC & Chem 7: 07/07/22 07:03 07/09/22 04:34 Labs: Abnormal Lab Results - Last 24 Hours (Table) 07/08/22 Range/Units 14:19 Chloride 108 H (98-107) mmol/L BUN 42 H (7-17) mg/dL Creatinine 1.54 H (0.52-1.04) mg/dL Glucose 101 H (74-99) mg/dL Calcium 7.6 L (8.4-10.2) mg/dL Assessment and Plan (1) Status post lumbar spinal fusion Current Visit: Yes Status: Acute Code(s): Z98.1 - ARTHRODESIS STATUS SNOMED Code(s): 26351677469655 (2) Spinal stenosis at L4-L5 level Current Visit: Yes Status: Acute Code(s): M48.061 - SPINAL STENOSIS, LUMBAR REGION WITHOUT NEUROGENIC KINA SNOMED Code(s): 22738816 Plan: The clinical findings are discussed with the patient. I have asked physical therapy to evaluate her again today to see how she does. I had discussion with patient about possible inpatient rehab. She is unable to perform activities and ambulation independently. The patient would like to be discharged to home rather than rehab if possible. We'll continue to follow and await the PT evaluation. The patient is seen and examined at bedside. She is very lethargic. She received her Harrold her Valium and Flexeril just after 9 AM this morning and is sedated due to this medication. She is awake she is arousable she will answer questions but does so quite slowly and then falls back asleep. Her vital signs are stable she saturating appropriately and she is following commands appropriately but overly lethargic. She is not unstable in terms of her breathing at all. She is having great deal of difficulty with trying to mobilize. We need to discontinue the sedating medications. I will hold on her Valium her Flexeril and her IV pain medication. She can continue with her oral pain medications if needed but we need to have her more awake and more active. She will be having some pain but I think that her low back is stable. She does not have any neurologic deficit in her lower extremities and we need to try to mobilize her further. She has been resistant to going to placement post discharge but in this condition I do not think that she'll be safe to return home and she will need placement before going home. I tried to explain this to her. I discussed this with the staff and they understand.
[2022-07-09 09:53] LABS: African American GFR (CKD) 49.2 (60.0-200.0); Anion Gap 12.6 mmol/L (10.00-18.00); BUN/Creat Ratio 29.62 Ratio (12.00-20.00); Blood Urea Nitrogen 38.5 mg/dL (9.0-27.0); Calcium 8.8 mg/dL (8.7-10.3); Carbon Dioxide 19.4 mmol/L (20.0-27.5); Non-African American GFR(CKD) 42.4 (60.0-200.0); Potassium 4.6 mmol/L (3.5-5.5)
[2022-07-09] MEDS ORDERED: PANTOPRAZOLE 40 MG/10 ML VIAL IVP SCH (10:30)
[2022-07-09 12:43] LABS: Basophils # (A) 0.1 k/uL (0-0.2); Basophils % (A) 0 %; Eosinophils # (A) 0.3 k/uL (0-0.7); Eosinophils % (A) 2 %; HCT 29.1 % (34.0-46.0); HGB 8.7 gm/dL (11.4-16.0); Hypochromasia Marked; Lymphocytes # (A) 0.8 k/uL (1.0-4.8); Lymphocytes % (A) 6 %; MCH 26.3 pg (25.0-35.0); MCHC 29.9 g/dL (31.0-37.0); MCV 88.1 fL (80.0-100.0); Mean Platelet Volume 7.4; Monocytes # (A) 0.7 k/uL (0-1.0); Monocytes % (A) 5 %; Neutrophils % (A) 85 %; Platelet Count 195 k/uL (150-450); RDW 15.2 % (11.5-15.5); WBC 14.1 k/uL (3.8-10.6)
--- NOTE | 2022-07-09 13:26 | PN ---
PROGRESS NOTE DATE OF SERVICE: 07/09/2022 SUBJECTIVE: This 66-year-old woman was admitted after spinal stenosis surgery, also complaining of some chest pain at this time. The pain is short-lived and felt in the anterior part of chest. There is no history of any fever, rigors, chills. No cough. PAST MEDICAL HISTORY: Reviewed. PHYSICAL EXAMINATION: VITAL SIGNS: Pulse is 80, blood pressure is 142/60, respirations 18. CHEST: Clear to auscultation. CARDIOVASCULAR: S1, S2 regular. ABDOMEN: Soft. NERVOUS SYSTEM: Nonfocal. LABORATORY DATA: Labs are reviewed. Troponin 0.020. ASSESSMENT: 1. Status post spinal stenosis, L4-5 surgery. 2. Chest pain, rule out myocardial infarction, possibly gastroesophageal reflux disease. 3. Low back pain. 4. Hypertension. 5. Hyperlipidemia. 6. Multiple medication issues. RECOMMENDATIONS: Recommend to continue current management and symptomatic treatment. Otherwise, at this time, I recommend symptomatic treatment with IV Protonix and a set of troponins, EKG, rule out cardiac causes. Repeat labs. The prognosis is guarded. Closely follow with Surgery. Further recommendations to follow. MMODL / IJN: [id number] /
[2022-07-10] MEDS: PANTOPRAZOLE 40 MG TABLET PO SCH (06:27)
[2022-07-10] MEDS: ALBUTEROL NEBULIZED 2.5 MG/3 ML INHALATION SCH ×4 (08:03→20:18)
[2022-07-10] MEDS: IPRATROPIUM 0.5 MG/2.5 ML NEBU INHALATION SCH ×4 (08:03→20:19)
[2022-07-10] MEDS: FAMOTIDINE 20 MG TAB PO SCH (08:38)
[2022-07-10] MEDS: SENNOSIDES-DOCUSATE SODIUM 1 EACH TAB PO SCH (08:38)
[2022-07-10] MEDS: ISOSORBIDE MONONITRATE ER 30 MG TAB.ER.24H PO SCH (08:39)
[2022-07-10] MEDS: HYDROcodone/APAP 7.5-325MG 1 EACH TAB PO PRN ×3 (08:39→20:56)
[2022-07-10] MEDS: METOPROLOL TARTRATE 25 MG TAB PO SCH ×2 (08:39→20:56)
[2022-07-10] MEDS: CLOPIDOGREL 75 MG TAB PO SCH (08:39)
[2022-07-10] MEDS: ATORVASTATIN 20 MG TAB PO SCH (08:39)
[2022-07-10] MEDS: SODIUM CHLORIDE 0.9% 1,000 ML IV SCH ×2 (08:40→10:39)
[2022-07-10] MEDS: LACTATED RINGERS 1,000 ML IV SCH (08:40)
[2022-07-10] MEDS: LOSARTAN 50 MG TAB PO SCH (08:40)
[2022-07-10 09:17] LABS: Basophils # (A) 0.05 X 10*3/uL (0.00-0.10); Basophils % (A) 0.3 %; Eosinophils # (A) 0.27 X 10*3/uL (0.04-0.35); Eosinophils % (A) 1.8 %; HCT 29.8 % (37.2-46.3); HGB 8.8 g/dL (12.0-15.0); Immature Grans, Automated 0.9 %; Lymphocytes # (A) 0.69 X 10*3/uL (0.90-5.00); Lymphocytes % (A) 4.6 %; MCHC 29.5 g/dL (32.0-37.0); MCV 87.9 fL (80.0-97.0); Mean Platelet Volume 9.6 fL (9.5-12.2); Monocytes # (A) 0.86 X 10*3/uL (0.20-1.00); Monocytes % (A) 5.7 %; NRBC Per 100 WBC 0 /100 WBCS (0.0-0.0); Neutrophils # (A) 13.05 X 10*3/uL (1.80-7.70); Neutrophils % (A) 86.7 %; Platelet Count 288 X 10*3/uL (140-440); RBC 3.39 X 10*6/uL (4.10-5.20); RDW 15.8 % (11.5-14.5); WBC 15.05 X 10*3/uL (4.50-10.00)
[2022-07-10 09:25] LABS: African American GFR (CKD) 50.6 (60.0-200.0); Albumin 3.4 g/dL (3.8-4.9); Albumin/Globulin Ratio 1.45 (1.60-3.17); BUN/Creat Ratio 31.1 Ratio (12.00-20.00); Blood Urea Nitrogen 39.5 mg/dL (9.0-27.0); Calcium 9.1 mg/dL (8.7-10.3); Carbon Dioxide 25.7 mmol/L (20.0-27.5); Globulin 2.4 g/dL (1.6-3.3); Non-African American GFR(CKD) 43.6 (60.0-200.0); Total Bilirubin 0.3 mg/dL (0.30-1.20); Total Protein 5.8 g/dL (6.2-8.2)
--- NOTE | 2022-07-10 11:20 | P.PN ---
Subjective Progress Note Date: 07/10/22 Principal diagnosis: Lumbar stenosis. Status post minimally invasive lumbar fusion with transforaminal interbody fusion L4-5. Patient is a pleasant 66-year-old female who is seen and examined at the bedside following posterior lateral decompression and fusion performed Monday. The patient is complaining of some chest pain this morning she has had cardiac workup which is negative. The patient states that she is not getting up to the bathroom independently. She is requiring assistance for ambulation. I helped her get back into bed today and she is moving very slowly. She states that she is having significant pain. Vital signs are stable. Patient continues to be seen and examined by medicine for her other medical diagnoses. Objective - Vital Signs Vital signs: Vital Signs Temp 98.2 F 07/10/22 07:57 Pulse 86 07/10/22 07:57 Resp 20 07/10/22 07:57 BP 163/78 07/10/22 07:57 Pulse Ox 98 07/10/22 08:03 FiO2 Intake & Output 07/09/22 07/10/22 07/10/22 18:59 06:59 18:59 Other: Voiding Method Bedside Commode # Voids 1 3 - Exam This is a pleasant 66-year-old female in no acute distress. She is alert and oriented 3. Exam of the lumbar spine reveals that her dressing is clean, dry and intact. There is no surrounding erythema or ecchymosis. Exam of the lower extremities reveals no deformity. She has full foot and ankle motion bilaterally. There is mild weakness noted with dorsiflexion against resistance. No neurologic deficits noted. I assisted the patient getting back into bed which was very difficult for her. She did require much assistance and is unable to even lift her own legs into bed. - Labs CBC & Chem 7: 07/10/22 04:45 07/10/22 04:45 Labs: Abnormal Lab Results - Last 24 Hours (Table) 07/09/22 07/10/22 07/10/22 Range/Units 11:53 04:45 04:45 WBC 14.1 H 15.05 H (3.8-10.6) k/uL RBC 3.30 L 3.39 L (3.80-5.40) m/uL Hgb 8.7 L 8.8 L (11.4-16.0) gm/dL Hct 29.1 L 29.8 L (34.0-46.0) % MCH 26.0 L (27.0-32.0) pg MCHC 29.9 L 29.5 L (31.0-37.0) g/dL RDW 15.8 H (11.5-14.5) % Immature Gran # 0.13 H (0.00-0.04) X 10*3/uL Neutrophils # 12.0 H 13.05 H (1.3-7.7) k/uL Lymphocytes # 0.8 L 0.69 L (1.0-4.8) k/uL Anion Gap 9.00 L (10.00-18.00) mmol/L BUN 39.5 H (9.0-27.0) mg/dL Est GFR (CKD-EPI)AfAm 50.6 L (60.0-200.0) Est GFR (CKD-EPI)NonAf 43.6 L (60.0-200.0) BUN/Creatinine Ratio 31.10 H (12.00-20.00) Ratio Total Protein 5.8 L (6.2-8.2) g/dL Albumin 3.4 L (3.8-4.9) g/dL Albumin/Globulin Ratio 1.45 L (1.60-3.17) g/dL Assessment and Plan (1) Status post lumbar spinal fusion Current Visit: Yes Status: Acute Code(s): Z98.1 - ARTHRODESIS STATUS SNOMED Code(s): 16560172787127 (2) Spinal stenosis at L4-L5 level Current Visit: Yes Status: Acute Code(s): M48.061 - SPINAL STENOSIS, LUMBAR REGION WITHOUT NEUROGENIC KINA SNOMED Code(s): 99778480 Plan: The clinical findings are discussed with the patient. I had discussion with patient about possible inpatient rehab. Physical therapy is recommending inpatient rehab for her. She is unable to perform activities and ambulation independently. The patient is coming around to the idea of going to rehab. Possible discharge tomorrow. I agree with the plan above. The patient continues to have significant difficulty with any mobilization and will require placement for assistance before she is safe to return home. She is more alert today without the sedating medications.
--- NOTE | 2022-07-10 13:24 | P.PN ---
Subjective Progress Note Date: 07/10/22 This is a 66-year-old female who is admitted for decompression and fusion L4/[address] Goodwin. Patient has an extensive history with her lower back. Past medical history includes asthma, GERD, hypertension, and hyperlipidemia. Status post minimally invasive lumbar fusion with transforaminal interbody fu delvin L4-5. 07/10. Patient seen and examined. Laying comfortably in the bed. No acute distress. States back pain is improved. Vital signs stable REVIEW OF SYSTEMS: CONSTITUTIONAL: No fever, no malaise,. CARDIOVASCULAR: No chest pain, no palpitations, no syncope. PULMONARY: No shortness of breath, no cough, GASTROINTESTINAL: No diarrhea, no nausea, no vomiting, no abdominal pain. NEUROLOGICAL: No headaches, no weakness, PHYSICAL EXAMINATION: GENERAL: The patient is alert and oriented x3, not in any acute distress. Well developed, well nourished. HEENT: Pupils are round and equally reacting to light. EOMI. No scleral icterus. No conjunctival pallor. Normocephalic, atraumatic. No pharyngeal erythema. No thyromegaly. CARDIOVASCULAR: S1 and S2 present. No murmurs, rubs, or gallops. PULMONARY: Chest is clear to auscultation, no wheezing or crackles. ABDOMEN: Soft, nontender, nondistended, normoactive bowel sounds. No palpable organomegaly. MUSCULOSKELETAL: No joint swelling or deformity. EXTREMITIES: No cyanosis, clubbing, or pedal edema. NEUROLOGICAL: Gross neurological examination did not reveal any focal deficits. SKIN: Lumbar area surgical incision seen Assessment and plan Status post minimally invasive lumbar fusion with transforaminal interbody fusion L4-5. Monitor vital signs Monitor CBC Monitor CMP Continue Lopressor and losartan Follow-up on PT and OT evaluation Continue home meds DVT prophylaxis: Objective - Vital Signs Vital signs: Vital Signs Temp 98.2 F 07/10/22 07:57 Pulse 86 07/10/22 07:57 Resp 20 07/10/22 07:57 BP 163/78 07/10/22 07:57 Pulse Ox 98 07/10/22 08:03 FiO2 Intake & Output 07/09/22 07/10/22 07/10/22 18:59 06:59 18:59 Other: Voiding Method Bedside Commode # Voids 1 3 - Labs CBC & Chem 7: 07/10/22 04:45 07/10/22 04:45 Labs: Abnormal Lab Results - Last 24 Hours (Table) 07/09/22 07/10/22 07/10/22 Range/Units 11:53 04:45 04:45 WBC 14.1 H 15.05 H (3.8-10.6) k/uL RBC 3.30 L 3.39 L (3.80-5.40) m/uL Hgb 8.7 L 8.8 L (11.4-16.0) gm/dL Hct 29.1 L 29.8 L (34.0-46.0) % MCH 26.0 L (27.0-32.0) pg MCHC 29.9 L 29.5 L (31.0-37.0) g/dL RDW 15.8 H (11.5-14.5) % Immature Gran # 0.13 H (0.00-0.04) X 10*3/uL Neutrophils # 12.0 H 13.05 H (1.3-7.7) k/uL Lymphocytes # 0.8 L 0.69 L (1.0-4.8) k/uL Anion Gap 9.00 L (10.00-18.00) mmol/L BUN 39.5 H (9.0-27.0) mg/dL Est GFR (CKD-EPI)AfAm 50.6 L (60.0-200.0) Est GFR (CKD-EPI)NonAf 43.6 L (60.0-200.0) BUN/Creatinine Ratio 31.10 H (12.00-20.00) Ratio Total Protein 5.8 L (6.2-8.2) g/dL Albumin 3.4 L (3.8-4.9) g/dL Albumin/Globulin Ratio 1.45 L (1.60-3.17) g/dL
[2022-07-11] MEDS: HYDROcodone/APAP 7.5-325MG 1 EACH TAB PO PRN ×2 (03:37→09:36)
[2022-07-11] MEDS: SODIUM CHLORIDE 0.9% 1,000 ML IV SCH ×2 (05:00→17:22)
[2022-07-11] MEDS: PANTOPRAZOLE 40 MG TABLET PO SCH (06:37)
[2022-07-11] MEDS: IPRATROPIUM 0.5 MG/2.5 ML NEBU INHALATION SCH ×5 (08:23→19:29)
[2022-07-11] MEDS: ALBUTEROL NEBULIZED 2.5 MG/3 ML INHALATION SCH ×5 (08:23→19:29)
--- NOTE | 2022-07-11 08:41 | P.DS ---
Providers Date of admission: 07/08/22 12:36 Expected date of discharge: 07/11/22 Attending physician: Isaias Goodwin Consults: 07/06/22 15:13 Consult Physician Routine Consulting Provider: Keshawn Link Consult Reason/Comments: Medical management Do you want consulting provider notified?: Yes Primary care physician: Keshawn Link - Discharge Diagnosis(es) (1) Lumbar degenerative disc disease Current Visit: Yes Status: Acute (2) Radiculopathy with lower extremity symptoms Current Visit: Yes Status: Acute (3) History of laminectomy Current Visit: Yes Status: Acute (4) History of heart artery stent Current Visit: Yes Status: Acute (5) Current use of jail anticoagulation Current Visit: Yes Status: Acute (6) Hyperlipidemia Current Visit: Yes Status: Acute (7) Hypertension Current Visit: Yes Status: Acute (8) Low back pain Current Visit: Yes Status: Acute (9) Spinal stenosis at L4-L5 level Current Visit: Yes Status: Acute (10) Spondylolisthesis, lumbar region Current Visit: Yes Status: Acute (11) Status post lumbar spinal fusion Current Visit: Yes Status: Acute Hospital Course: This is a pleasant 66-year-old female who presented with L4-5 spinal stenosis, L4 to 5 spondylolisthesis, low back pain, lower extremity radiculopathy, lumbar degenerative disc disease, and history of previous L4-5 decompression who failed outpatient conservative therapy. She was admitted for L4-5 minimally invasive posterior lateral decompression and fusion with transforaminal lumbar interbody fusion with revision laminectomy and decompression at L4-5. Patient has been progressing significantly slowly postoperatively. She was having some difficulty with hypotension while on IV pain medications. These have been discontinued. His pain has been controlled with oral hydrocodone. She does continue to have significant difficulty with mobility. She will need to be discharged to a rehabilitation facility to gain strength to increase her mobility and ambulation prior to returning home. Patient is seen and examined at bedside with medicine present today. They are in agreement patient will need rehab at the time of discharge. They're clearing patient for discharge today. Condition on day of discharge stable. Patient will be discharged rehabilitation facility. Patient was cleared preoperatively for surgery by Dr. Link. Patient currently denies any nausea, vomiting, fever, or chills. Patient is eating and voiding freely without difficulty. Surgical dressings have been removed from the lumbar spine and right iliac crest. Patient may shower without dressing is intact at this time. Patient should refrain from driving until at least after their first follow-up appointment in the office. Patient should avoid excessive bending, lifting, and twisting; no lifting greater than 10 pounds. MAPS has been reviewed on 07/08/2022 with an Overall Overdose Risk Score of 210. An "Opiod Start Talking" Form has been signed and placed in the patient's chart. A prescription has been written for hydrocodone 7.5 mg/325 mg, 1 tab, every 4 hours as needed for acute pain, dispense #42. Prescription was also written for cyclobenzaprine 10 mg, take 1 tab 3 times a day as needed for muscle spasm, dispensed #60. These medications are printed, signed, and placed in the patient's chart for discharge. Patient's other medical diagnoses include hypertension, hyperlipidemia, myocardial infarction cardiac stent, and current long-term anticoagulation use. Anticoagulation is being managed by medicine. Patient should avoid anti-inflammatory medication over the next 6 weeks postoperatively. Medicine will complete the med rec prior to discharge. Physical Exam on day of discharge: Status post surgical day number 5 Patient is sleepy but is arousable and answers questions appropriately Vital signs stable Good chest excursion with deep inspiration and expiration Abdomen soft nontender Dorsiflexion, plantarflexion, and extensor hallucis longus positive sustained bilaterally No signs or symptoms of DVT; no calf pain; pneumatic cuffs intact bilateral lower extremities Optifoam dressings are clean, dry, and intact over the lumbar spine and right iliac crest; no erythema, purulence, or signs of infection Dressings are removed during physical examination; no active drainage Neurovascularly intact bilaterally lower extremities Procedures: L4-5 minimally invasive posterior lateral decompression and fusion with transforaminal lumbar interbody fusion with revision laminectomy and decompression at L4-5. Patient Condition at Discharge: Stable Plan - Discharge Summary Discharge Rx Participant: Yes New Discharge Prescriptions: New Cyclobenzaprine [Flexeril] 10 mg PO TID PRN #60 tab PRN Reason: Muscle Spasm Hydrocodone/Acetaminophen [Hydrocodone/Acetaminophen 7.5-325] 1 tab PO Q4H PRN 7 Days #42 tab PRN Reason: Pain Continue Albuterol Sulfate [Proair Hfa] 2 puff INHALATION QID Clopidogrel [Plavix] 75 mg PO DAILY #30 tablet Nitroglycerin Sl Tabs [Nitrostat] 0.4 mg SL Q5M PRN PRN Reason: Chest Pain Rosuvastatin Calcium 10 mg PO DAILY hydroCHLOROthiazide [Hydrodiuril] 10 mg PO DAILY Ipratropium-Albuterol Nebulize [Duoneb 0.5 mg-3 mg/3 ml Soln] 3 ml INHALATION QID Metoprolol Tartrate [Lopressor] 25 mg PO BID Losartan Potassium 100 mg PO DAILY Isosorbide Mononitrate [Isosorbide Mononitrate ER] 30 mg PO DAILY Discharge Medication List Albuterol Sulfate [Proair Hfa] 2 puff INHALATION QID 10/12/18 [History] Clopidogrel [Plavix] 75 mg PO DAILY #30 tablet 10/16/18 [Rx] Ipratropium-Albuterol Nebulize [Duoneb 0.5 mg-3 mg/3 ml Soln] 3 ml INHALATION QID 03/28/21 [History] Nitroglycerin Sl Tabs [Nitrostat] 0.4 mg SL Q5M PRN 03/28/21 [History] hydroCHLOROthiazide [Hydrodiuril] 10 mg PO DAILY 03/28/21 [History] Isosorbide Mononitrate [Isosorbide Mononitrate ER] 30 mg PO DAILY 05/27/22 [History] Losartan Potassium 100 mg PO DAILY 05/27/22 [History] Metoprolol Tartrate [Lopressor] 25 mg PO BID 05/27/22 [History] Rosuvastatin Calcium 10 mg PO DAILY 05/27/22 [History] Cyclobenzaprine [Flexeril] 10 mg PO TID PRN #60 tab 07/08/22 [Rx] Hydrocodone/Acetaminophen [Hydrocodone/Acetaminophen 7.5-325] 1 tab PO Q4H PRN 7 Days #42 tab 07/08/22 [Rx] Follow up Appointment(s)/Referral(s): Isaias Goodwin DO [Doctor of Osteopathic Medicine] - 07/19/22 2:45 pm Keshawn Link MD [Primary Care Provider] - 1 Week Residential Home,[facility] [NON-STAFF] - 1-2 Days Activity/Diet/Wound Care/Special Instructions: 1. Patient may shower without a dressing intact. 2. Patient should refrain from driving until at least after their first follow- up appointment in the office. 3. Patient should avoid excessive bending, twisting, lifting; avoid overhead lifting; no lifting greater than 10 pounds 4. Take medications as prescribed 5. Patient should avoid anti-inflammatory medications over the next 6 weeks postoperatively 6. Do not soak in tub Discharge Disposition: TRANSFER TO SNF/ECF
--- NOTE | 2022-07-11 08:54 | P.DS ---
Providers Date of admission: 07/08/22 12:36 Attending physician: Isaias Goodwin Consults: 07/06/22 15:13 Consult Physician Routine Consulting Provider: Keshawn Link Consult Reason/Comments: Medical management Do you want consulting provider notified?: Yes Primary care physician: Keshawn Link - Discharge Diagnosis(es) (1) Spinal stenosis at L4-L5 level Current Visit: Yes Status: Acute (2) Spondylolisthesis, lumbar region Current Visit: Yes Status: Acute (3) Low back pain Current Visit: Yes Status: Acute (4) Hypertension Current Visit: Yes Status: Acute (5) Hyperlipidemia Current Visit: Yes Status: Acute Hospital Course: This is a 66-year-old female who was admitted for L4-5 posterior lateral decompression and fusion with transforaminal lumbar interbody fusion revision laminectomy and decompression L4 -5. She has been recovering slowly post operatively and is requiring discharge to rehab due to significant difficulty with mobility. She has been cleared by surgery for discharge. Patient seen and evaluated by nurse practitioner, physician in agreement with plan Patient Condition at Discharge: Stable Plan - Discharge Summary Discharge Rx Participant: Yes New Discharge Prescriptions: New Cyclobenzaprine [Flexeril] 10 mg PO TID PRN #60 tab PRN Reason: Muscle Spasm Hydrocodone/Acetaminophen [Hydrocodone/Acetaminophen 7.5-325] 1 tab PO Q4H PRN 7 Days #42 tab PRN Reason: Pain Continue Albuterol Sulfate [Proair Hfa] 2 puff INHALATION QID Clopidogrel [Plavix] 75 mg PO DAILY #30 tablet Nitroglycerin Sl Tabs [Nitrostat] 0.4 mg SL Q5M PRN PRN Reason: Chest Pain Rosuvastatin Calcium 10 mg PO DAILY hydroCHLOROthiazide [Hydrodiuril] 10 mg PO DAILY Ipratropium-Albuterol Nebulize [Duoneb 0.5 mg-3 mg/3 ml Soln] 3 ml INHALATION QID Metoprolol Tartrate [Lopressor] 25 mg PO BID Losartan Potassium 100 mg PO DAILY Isosorbide Mononitrate [Isosorbide Mononitrate ER] 30 mg PO DAILY Discharge Medication List Albuterol Sulfate [Proair Hfa] 2 puff INHALATION QID 10/12/18 [History] Clopidogrel [Plavix] 75 mg PO DAILY #30 tablet 10/16/18 [Rx] Ipratropium-Albuterol Nebulize [Duoneb 0.5 mg-3 mg/3 ml Soln] 3 ml INHALATION QID 03/28/21 [History] Nitroglycerin Sl Tabs [Nitrostat] 0.4 mg SL Q5M PRN 03/28/21 [History] hydroCHLOROthiazide [Hydrodiuril] 10 mg PO DAILY 03/28/21 [History] Isosorbide Mononitrate [Isosorbide Mononitrate ER] 30 mg PO DAILY 05/27/22 [History] Losartan Potassium 100 mg PO DAILY 05/27/22 [History] Metoprolol Tartrate [Lopressor] 25 mg PO BID 05/27/22 [History] Rosuvastatin Calcium 10 mg PO DAILY 05/27/22 [History] Cyclobenzaprine [Flexeril] 10 mg PO TID PRN #60 tab 07/08/22 [Rx] Hydrocodone/Acetaminophen [Hydrocodone/Acetaminophen 7.5-325] 1 tab PO Q4H PRN 7 Days #42 tab 07/08/22 [Rx] Follow up Appointment(s)/Referral(s): Isaias Goodwin DO [Doctor of Osteopathic Medicine] - 07/19/22 2:45 pm Keshawn Link MD [Primary Care Provider] - 1 Week Residential Home,[facility] [NON-STAFF] - 1-2 Days Activity/Diet/Wound Care/Special Instructions: 1. Patient may shower without a dressing intact. 2. Patient should refrain from driving until at least after their first follow- up appointment in the office. 3. Patient should avoid excessive bending, twisting, lifting; avoid overhead lifting; no lifting greater than 10 pounds 4. Take medications as prescribed 5. Patient should avoid anti-inflammatory medications over the next 6 weeks postoperatively 6. Do not soak in tub Discharge Disposition: TRANSFER TO SNF/ECF
[2022-07-11] MEDS: METOPROLOL TARTRATE 25 MG TAB PO SCH ×2 (09:36→20:53)
[2022-07-11] MEDS: CLOPIDOGREL 75 MG TAB PO SCH (09:36)
[2022-07-11] MEDS: SENNOSIDES-DOCUSATE SODIUM 1 EACH TAB PO SCH (09:36)
[2022-07-11] MEDS: FAMOTIDINE 20 MG TAB PO SCH (09:37)
[2022-07-11] MEDS: ISOSORBIDE MONONITRATE ER 30 MG TAB.ER.24H PO SCH (09:37)
[2022-07-11] MEDS: ATORVASTATIN 20 MG TAB PO SCH (09:37)
[2022-07-11] MEDS: LOSARTAN 50 MG TAB PO SCH (09:37)
[2022-07-11] MEDS: LACTATED RINGERS 1,000 ML IV SCH (09:51)
[2022-07-11] MEDS ORDERED: NALOXONE 0.4 MG/ML 1 ML VIAL IVP PRN (12:57)
--- NOTE | 2022-07-11 13:54 | CDI ---
Documentation Clarification Form Date: 07/11/2022 1:35:09 PM From: Raina Sy RN, CCDS Email: [email or web address] Admit Date: 07/08/2022 12:36:00 PM Patient Name: Lilibeth Licea Visit Number: [id number] Discharge Date: ATTENTION: The Clinical Documentation Specialists (CDI) and [facility] Coding Staff appreciate your assistance in clarifying documentation. Please respond to the clarification below the line at the bottom and electronically sign. The CDI & [facility] Coding staff will review the response and follow-up if needed. Please note: Queries are made part of the Legal Health Record. If you have any questions, please contact the author of this message via ITS. Dr. Keshawn Link Your patient had an elevated Cr level on 07/07 and 07/08. Based on this information and the findings below, is there an additional diagnosis that is clinically appropriate for this patient? Patient history/risk factors: L4-5 spinal stenosis, L4 to 5 spondylolisthesis - S/P spinal fusion. Hypotension due to Dilaudid. Clinical Indicators: 07/07 BP 71/40-91/53-112/63 07/07 BUN/Cr/GFR: 35.5/1.9/26.8 07/08 BUN/Cr/GFR: 42/1.54/35 07/09 BUN/Cr/GFR: 38.5/1.3/42.4 07/10 BUN/Cr/GFR: 39.5/1.3/43.6 Treatment: 0.9 NS IV bolus on 07/07. 0.9 NS @ 75ml/hr Is there an additional diagnosis that is clinically appropriate for this patient? [ x] Acute Kidney Injury [ ] No additional diagnosis/Not clinically significant [ ] Unable to determine [ ] Other, please specify Reference: KDIGO BRIAN Criteria An increase in serum creatinine by greater than or equal to 0.3 mg/dL within 48 hours; An increase in serum creatinine by greater than or equal to 1.5 times baseline, which is known or presumed to have occurred within the prior 7 days; A urine volume less than 0.5 ml/kg/h for 6 hours. When the baseline is unknown the lowest creatinine during admission assumed to be baseline MTDD
--- NOTE | 2022-07-11 14:02 | CDI ---
Documentation Clarification Form Date: 07/11/2022 1:55:19 PM From: Raina Sy RN, CCDS Email: [email or web address] Admit Date: 07/08/2022 12:36:00 PM Patient Name: Lilibeth Licea Visit Number: [id number] Discharge Date: ATTENTION: The Clinical Documentation Specialists (CDI) and [facility] Coding Staff appreciate your assistance in clarifying documentation. Please respond to the clarification below the line at the bottom and electronically sign. The CDI & [facility] Coding staff will review the response and follow-up if needed. Please note: Queries are made part of the Legal Health Record. If you have any questions, please contact the author of this message via ITS. Dr. Keshawn Link Your patient had a hemoglobin/hematocrit level of 8.8/29.8 on 07/10. Please clarify if there is an additional diagnosis and/or clinical significance related to these lab values. History/Risk Factors: L4-5 spinal stenosis, L4 to 5 spondylolisthesis - S/P spinal fusion. Hypotension due to Dilaudid. Clinical indicators: 07/07 H/H: 15.7/46.7 07/09 H/H: 8.7/29.1 07/10 H/H: 8.8/29.8 Treatment: Monitor CBC. 0.9 NS IV bolus and then 75ml/hr. Is there an additional diagnosis and/or clinical significance related to the above lab result/information? [ x ] Acute blood loss anemia [ ] No additional diagnosis/Not clinically significant [ ] Unable to determine [ x ] Other, please specify ____post operative blood loss MTDD
--- NOTE | 2022-07-11 14:52 | CT ---
EXAMINATION TYPE: CT brain wo con DATE OF EXAM: 07/11/2022 HISTORY: AMS, weakness CT DLP: 1084.4 mGycm. Automated Exposure Control for Dose Reduction was Utilized. TECHNIQUE: CT scan of the head is performed without contrast. COMPARISON: None. FINDINGS: There is no acute intracranial hemorrhage or midline shift identified. There is mild diff use ventricular and sulcal prominence consistent with diffuse age-related cerebral atrophy. Shin-whit e matter differentiation fairly well preserved. Sclerosis and thickening of left maxillary sinus wall is seen with some inferior mucosal thickening . The globes are intact bilaterally. IMPRESSION: No acute intracranial hemorrhage or midline shift.
--- NOTE | 2022-07-11 15:58 | XR ---
EXAMINATION TYPE: XR chest 1V portable DATE OF EXAM: 07/11/2022 CLINICAL HISTORY: Difficulty breathing and wheezing. TECHNIQUE: Single AP portable upright view of the chest is obtained. COMPARISON: Chest x-ray from June 28, 2022 FINDINGS: There is chronic emphysematous and pulmonary fibrotic change along with right peripheral l tani surgical changes redemonstrated. No new focal airspace opacity, pleural effusion, or pneumothorax seen bilaterally. Cardiac silhouette size remains within normal limits. Osseous structures are demin eralized. IMPRESSION: Chronic changes without acute pulmonary process.
--- NOTE | 2022-07-11 16:11 | P.CNNES ---
History of Present Illness Consult date: 07/11/22 Requesting physician: Keshawn Link Reason for Consult: altered mentation History of Present Illness: 6 is a 66-year-old woman with history of migraine, hypertension, myocardial infarction, chronic lower back pain who was admitted for decompression and fusion of L4-L5 by the orthopedic team. Neurology is consulted for altered mental status. Some of the history was obtained from medical record as well as the patient's was at bedside. On 07/06/2022 patient had revision laminectomy and decompression of L4-L5. It seems that the patient has been getting [place] for pain and seems that the patient has been been the more lethargic. Patient denies patient has any history of stroke or seizures in the past. According to the nurse patient has received Narcan because of the pain medication and possibly there is some improvement after that. For the most part patient has been afebrile there is one episode on 07/09/1999 2379.8 Workup during his hospital visit is initial white blood cells 5.71 most recent is 15.05K Initial creatinine is 1.9 most recent is 1.3. The calcium is 8.4 most recent is 9.1 AST ALT is within normal limits. Sodium is within normal limits. Ordered CT of the head is reported no acute intracranial hemorrhage or midline shift. I personally reviewed the CT head and agree with report. Review of Systems Review of system is limited but the prone positive and negative aspiration. Past Medical History Past Medical History: Asthma, GERD/Reflux, Hyperlipidemia, Hypertension, Myocardial Infarction (NM) Additional Past Medical History / Comment(s): SOB at times, 02 use at night and prn, 2.5-3L. Back pain. Migraines. Last Myocardial Infarction Date:: 1999 History of Any Multi-Drug Resistant Organisms: None Reported Past Surgical History: Appendectomy, Back Surgery, Heart Catheterization, Heart Catheterization With Stent, Hysterectomy, Orthopedic Surgery, Tonsillectomy Additional Past Surgical History / Comment(s): HEART CATH X2, 1 cardiac stent, NECK FUSION, LOWER BACK FUSION, PAIN STIMULATOR INSERTED AND LATER REMOVED, BILATERAL CARPAL TUNNEL, BILATERAL TENNIS ELBOW, RIGHT HAND TRIGGER FINGER, bilateral lung reduction. Past Anesthesia/Blood Transfusion Reactions: Previous Problems w/ Anesthesia, Family History of Problems w/ Anesthesia, Motion Sickness Additional Past Anesthesia/Blood Transfusion Reaction / Comment(s): Patient, Mother and 2 sisters have problems with Anectine. Date of Last Stent Placement:: Unknown Past Psychological History: Anxiety Smoking Status: Former smoker Past Alcohol Use History: None Reported Additional Past Alcohol Use History / Comment(s): QUIT SMOKING IN 2001, SMOKED 1/2 PPD FROM A TEEN. Past Drug Use History: None Reported - Past Family History Sister(s) Family Medical History: Cancer Additional Family Medical History / Comment(s): Breast cancer. Mother Family Medical History: Cancer Additional Family Medical History / Comment(s): Uterine cancer. Father Family Medical History: Myocardial Infarction (NM) Additional Family Medical History / Comment(s): No GI malignancy or gluten enteropathy. Medications and Allergies Home Medications Medication Instructions Recorded Confirmed Type Albuterol Sulfate [Proair Hfa] 2 puff INHALATION QID 10/12/18 07/06/22 History Clopidogrel [Plavix] 75 mg PO DAILY #30 tablet 10/16/18 07/06/22 Rx Ipratropium-Albuterol Nebulize 3 ml INHALATION QID 03/28/21 07/06/22 History [Duoneb 0.5 mg-3 mg/3 ml Soln] Nitroglycerin Sl Tabs [Nitrostat] 0.4 mg SL Q5M PRN 03/28/21 07/06/22 History hydroCHLOROthiazide [Hydrodiuril] 10 mg PO DAILY 03/28/21 07/06/22 History Isosorbide Mononitrate [Isosorbide 30 mg PO DAILY 05/27/22 07/06/22 History Mononitrate ER] Losartan Potassium 100 mg PO DAILY 05/27/22 07/06/22 History Metoprolol Tartrate [Lopressor] 25 mg PO BID 05/27/22 07/06/22 History Rosuvastatin Calcium 10 mg PO DAILY 05/27/22 07/06/22 History Cyclobenzaprine [Flexeril] 10 mg PO TID PRN #60 tab 07/08/22 Rx Hydrocodone/Acetaminophen 1 tab PO Q4H PRN 7 Days #42 tab 07/08/22 Rx [Hydrocodone/Acetaminophen 7.5-325] Allergies Allergy/AdvReac Type Severity Reaction Status Date / Time codeine AdvReac Itching Verified 07/06/22 10:15 succinylcholine chloride AdvReac CAUSED Verified 07/06/22 10:15 [From Anectine] PARALYSIS -PT COULDN'T MOVE AFTER SURGERY Physical Examination - Vital Signs Vital Signs: Vital Signs Temp Pulse Resp BP Pulse Ox 07/11/22 14:12 18 07/11/22 14:00 97.9 F 84 20 161/73 97 07/11/22 07:46 98.3 F 85 18 171/69 96 07/11/22 01:25 97.8 F 71 16 154/82 96 07/10/22 20:00 98.4 F 71 19 125/71 100 Intake and Output 07/11/22 07/11/22 07/11/22 06:59 14:59 22:59 Other: # Voids 1 GENERAL: The patient is sitting in a recliner chair and appears in mild acute distress. CHEST: The heart rate is regular rate rhythm. No murmurs to auscultation. LUNG: Is wheezing even without ausculation. Not labored breathing. ABDOMEN/GI: Bowel sounds present in all 4 quadrants. No tenderness to palpation throughout. NEUROLOGICAL: Limited because condition. Higher mental function: The patient is moderately to severely drowsy but is awakeable to voice. Is oriented to self, time and stated is in the hospital. Is following few simple commands. Language is limited. Cranial nerves: The pupils are round, equal and reactive to light. Primary gaze is midline. No facial weakness. No dysrthria. Otherwise rest is limited. Motor: The strength is hard to assess individual muscle strength but lifting all extremities above gravity without focality. Normal tone and bulk. Cerebellum: Unable to assess. Sensation: Unable to assess. Reflexes (right/left): Patellar is 2-3+ but otherwise 2+ throughout. Plantars are mute bilaterally. Results - Laboratory Findings CBC and BMP: 07/10/22 04:45 07/10/22 04:45 Abnormal Lab Findings: Abnormal Labs 07/07/22 07/07/22 07/08/22 07:03 07:03 14:19 WBC RBC Hgb 15.7 H Hct 46.7 H MCH MCHC RDW Immature Gran # Neutrophils # Lymphocytes # Chloride 108 H Carbon Dioxide Anion Gap BUN 35.5 H 42 H Creatinine 1.9 H 1.54 H Est GFR (CKD-EPI)AfAm 31.1 L Est GFR (CKD-EPI)NonAf 26.8 L BUN/Creatinine Ratio Glucose 101 H Calcium 8.4 L 7.6 L Total Protein Albumin Albumin/Globulin Ratio 07/09/22 07/09/22 07/10/22 04:34 11:53 04:45 WBC 14.1 H 15.05 H RBC 3.30 L 3.39 L Hgb 8.7 L 8.8 L Hct 29.1 L 29.8 L MCH 26.0 L MCHC 29.9 L 29.5 L RDW 15.8 H Immature Gran # 0.13 H Neutrophils # 12.0 H 13.05 H Lymphocytes # 0.8 L 0.69 L Chloride Carbon Dioxide 19.4 L Anion Gap BUN 38.5 H Creatinine Est GFR (CKD-EPI)AfAm 49.2 L Est GFR (CKD-EPI)NonAf 42.4 L BUN/Creatinine Ratio 29.62 H Glucose Calcium Total Protein Albumin Albumin/Globulin Ratio 07/10/22 04:45 WBC RBC Hgb Hct MCH MCHC RDW Immature Gran # Neutrophils # Lymphocytes # Chloride Carbon Dioxide Anion Gap 9.00 L BUN 39.5 H Creatinine Est GFR (CKD-EPI)AfAm 50.6 L Est GFR (CKD-EPI)NonAf 43.6 L BUN/Creatinine Ratio 31.10 H Glucose Calcium Total Protein 5.8 L Albumin 3.4 L Albumin/Globulin Ratio 1.45 L Assessment and Plan Assessment: Encephalopathy seems to medication-induced ([place]) and toxic/metabolic encephalopathy. She has leukocytosis without fevers and unsure if it's reactive or due to underlying infection shows as pneumonia especially since a post surgery she has not been using the incentive spread spirometer. Chronic low back pain with spinal stenosis over L4-L5 with radiculopathy status post revision laminectomy and a compression over L4-L5 on 07/06/2022 Migraine History of myocardial infarction Hyperlipidemia Plan: I ordered CT of the brain and the was unremarkable. I ordered ammonia level, TSH, vitamin B12, folate. Recommend if possible hold off pain medication if possible Regarding the leukocytosis it could be reactive or due to underlying possible pneumonia since the patient did not use her incentive spirometer post surgery. We'll defer workup/management to the primary team If continues to have confusion will pursue with routine EEG. This does not appear like seizures. Consider MRI Lumbar spine if continues to have worsening of leukocytosis with fever. Defer the rest of the medical management to primary team The plan is discussed with patient's and her nurse. Thank you for the consultation. Time with Patient: Greater than 30
[2022-07-11 18:18] LABS: Appearance,Urine Clear (Clear); Bilirubin,Urine Negative (Negative); Blood,Urine Negative (Negative); Color,Urine Yellow; Glucose,Urine (UA) Negative (Negative); Ketones,Urine Negative (Negative); Leukocyte Esterase,Urine Moderate (Negative); Mucus,Urine Rare /hpf; Nitrite,Urine Negative (Negative); PH, Urine 5.5 (5.0-8.0); Protein,Urine Trace (Negative); RBC,Urine 10 /hpf (0-5); Specific Gravity,Urine 1.017 (1.001-1.035); Squamous Epithelial Cell,Urine <1 /hpf (0-4); Urobilinogen,Urine <2.0 mg/dL (<2.0); WBC,Urine 30 /hpf (0-5)
[2022-07-11] MEDS: amLODIPine 5 MG TAB PO SCH (20:53)
[2022-07-11] MEDS: LACTULOSE 20 GM/30 ML CUP PO SCH (20:54)
[2022-07-12] MEDS: HYDROcodone/APAP 7.5-325MG 1 EACH TAB PO PRN ×3 (00:06→19:51)
[2022-07-12] MEDS: SODIUM CHLORIDE 0.9% 1,000 ML IV SCH ×2 (05:17→19:50)
[2022-07-12] MEDS: LACTATED RINGERS 1,000 ML IV SCH (06:28)
[2022-07-12] MEDS: amLODIPine 5 MG TAB PO SCH (08:26)
[2022-07-12] MEDS: ATORVASTATIN 20 MG TAB PO SCH (08:26)
[2022-07-12] MEDS: METOPROLOL TARTRATE 25 MG TAB PO SCH ×2 (08:26→19:50)
[2022-07-12] MEDS: ISOSORBIDE MONONITRATE ER 30 MG TAB.ER.24H PO SCH (08:26)
[2022-07-12] MEDS: CLOPIDOGREL 75 MG TAB PO SCH (08:26)
[2022-07-12] MEDS: PANTOPRAZOLE 40 MG TABLET PO SCH (08:26)
[2022-07-12] MEDS: SENNOSIDES-DOCUSATE SODIUM 1 EACH TAB PO SCH (08:26)
[2022-07-12] MEDS: LOSARTAN 50 MG TAB PO SCH (08:26)
[2022-07-12] MEDS: FAMOTIDINE 20 MG TAB PO SCH (08:26)
[2022-07-12] MEDS: ALBUTEROL NEBULIZED 2.5 MG/3 ML INHALATION SCH ×4 (08:27→20:09)
[2022-07-12] MEDS: IPRATROPIUM 0.5 MG/2.5 ML NEBU INHALATION SCH ×4 (08:27→20:09)
[2022-07-12] MEDS ORDERED: HYDROcodone/APAP 7.5-325MG 1 EACH TAB PO PRN (09:02)
--- NOTE | 2022-07-12 09:02 | P.PN ---
Progress Note - Text Progress Note Date: 07/12/22 Orthopedic spine: History of present illness: This is a pleasant 66-year-old female who presented with L4-5 spinal stenosis, L4-5 spondylolisthesis, low back pain, lower extremity radiculopathy, lumbar degenerative disc disease, and history of previous L4-5 decompression who failed outpatient conservative therapy. She was admitted for L4-5 minimally invasive posterior lateral decompression and fusion with transforaminal lumbar interbody fusion with revision laminectomy and decompression at L4-5. Patient has been progressing significantly slowly postoperatively. She was having some difficulty with hypotension while on IV pain medications. These have been discontinued. Her pain has been controlled with oral hydrocodone. She is having some difficulties altered mental status yesterday. Consultation was placed by neurology. CT of the brain was taken without significant findings. Neurology felt her status change may be due to medications. They have been reducing her narcotic intake. Patient is much more awake, alert, oriented this morning. Labs showed elevated ammonia. Patient has been discussed in detail with medicine. Their plan to keep her in the hospital one more night to reduce her ammonia level. She is currently receiving a breathing treatment. Labs also showed evidence of urinary tract infection. She is being managed by medicine. Medicine is planning for discharge to a rehabilitation facility tomorrow. We di d discuss that from an orthopedic spine standpoint, patient is cleared to discharge to rehab tomorrow. She does continue to have significant difficulty with mobility. She will need to be discharged to a rehabilitation facility to gain strength to increase her mobility and ambulation prior to returning home. Patient currently denies any nausea, vomiting, fever, or chills. Patient is eating and voiding freely without difficulty. Surgical dressings were removed yesterday from the lumbar spine and right iliac crest. Patient may shower without dressing is intact at this time. Patient should refrain from driving until at least after their first follow-up appointment in the office. Patient should avoid excessive bending, lifting, and twisting; no lifting greater than 10 pounds. Patient's other medical diagnoses include hypertension, hyperlipidemia, myocardial infarction cardiac stent, and current long-term anticoagulation use. Anticoagulation is being managed by medicine. Patient should avoid anti-inflammatory medication over the next 6 weeks postoperatively. Medicine will complete the med rec prior to discharge and discharge the patient tomorrow. Physical Exam on day of discharge: Status post surgical day number 6 Patient is awake, alert, and oriented 3 Vital signs stable Good chest excursion with deep inspiration and expiration Patient is currently resting in bed comfortably receiving a breathing treatment; she is communicating well Dorsiflexion, plantarflexion, and extensor hallucis longus positive sustained bilaterally No signs or symptoms of DVT; no calf pain; pneumatic cuffs intact bilateral lower extremities Neurovascularly intact bilaterally lower extremities Assessment: Status post L4-5 minimally invasive posterior lateral decompression and fusion with transforaminal lumbar interbody fusion Low back pain L4-5 spondylolisthesis L4-5 spinal stenosis Lower extremity radiculopathy Lumbar degenerative disc disease History of previous L5-S1 decompression fusion History of previous L4-5 decompression Hypotension postoperatively History of hypertension Hyperlipidemia History of myocardial infarction with cardiac stent Currently on anticoagulation long-term use with Plavix Elevated ammonia level Altered mental status change yesterday significantly improved today Urinary tract infection Plan: 1. Ambulate as tolerated; work with Physical Therapy to increase mobilization; patient must be able to ambulate stairs prior to discharge to a rehabilitation facility tomorrow 2. Continue pain control with oral medications; we have reduced the frequency of the oral hydrocodone due to patient's altered mental status yesterday. She has had significant improvement of her mental status today. MAPS has been reviewed on 07/08/2022 with an Overall Overdose Risk Score of 210. An "Opiod Start Talking" Form has been signed and placed in the patient's chart. A prescription was previously written for hydrocodone 7.5 mg/325 mg, 1 tab, every 4 hours as needed for acute pain, dispense #42. Prescription was also written for cyclobenzaprine 10 mg, take 1 tab 3 times a day as needed for muscle spasm, dispensed #60. These medications are printed, signed, and placed in the patient's chart for discharge. We will plan to adjust the hydrocodone prescription from every 4 hours down to every 8 hours, dispensed #21. A new prescription is written, signed, placed in the patient's chart. We will cancel the previously prescribed every 4 our prescription. 3. Patient should avoid anti-inflammatory medication over the next 6 weeks postoperatively. 4. Dressings to remain intact with Optifoam; patient may shower with dressings intact 5. Medical management can continue to manage patient for patient's other medical diagnoses including hyperlipidemia, hypertension, elevated pneumonia, and urinary tract infection. Medicine is planning to keep the patient in the hospital until tomorrow to improve her ammonia level with plans to discharge to rehab tomorrow. Medicine will complete the med rec prior to discharge and discharge the patient tomorrow. 6. From an orthopedic spine standpoint, patient is clear for discharge to the upper rehabilitation facility. 7. Patient can follow-up with Cam Thrasher PA-C or Dr. He Goodwin at [facility] in 2-3 weeks following discharge
--- NOTE | 2022-07-12 09:02 | P.PN ---
Subjective Progress Note Date: 07/12/22 Principal diagnosis: Spinal stenosis This is a 66-year-old female who was originally admitted for decompression and fusion L4/[address] Goodwin. Postoperatively patient has been slow to recover, and difficult to arouse at times. Patient received 1 dose of Narcan yesterday, reportedly did awaken. Ammonia level is slightly elevated, patient started on lactulose. She is complaining of some difficulty breathing this morning, chest x-ray was negative, updrafts have already been ordered. Objective - Vital Signs Vital signs: Vital Signs Temp 97.9 F 07/12/22 07:01 Pulse 80 07/12/22 08:49 Resp 16 07/12/22 07:01 BP 130/71 07/12/22 07:01 Pulse Ox 99 07/12/22 08:28 FiO2 Intake & Output 07/11/22 07/12/22 07/12/22 18:59 06:59 18:59 Other: Voiding Method Bedside Commode Bedside Commode # Voids 1 5 # Bowel Movements 6 - Constitutional General appearance: Present: cooperative, no acute distress - EENT Eyes: Present: EOMI, PERRLA - Neck Neck: Present: normal ROM. Absent: lymphadenopathy, rigidity - Respiratory Respiratory: bilateral: CTA - Cardiovascular Rhythm: regular Heart sounds: normal: S1, S2 - Gastrointestinal General gastrointestinal: Present: soft. Absent: tenderness - Integumentary Integumentary: Present: normal, normal turgor - Musculoskeletal Musculoskeletal: Present: generalized weakness - Psychiatric Psychiatric: Present: A&O x's 3, appropriate affect, intact judgment & insight - Labs CBC & Chem 7: 07/10/22 04:45 07/10/22 04:45 Labs: Abnormal Lab Results - Last 24 Hours (Table) 07/11/22 07/11/22 Range/Units 16:38 17:45 Ammonia 30 H (<30) umol/L Urine Protein Trace H (Negative) Ur Leukocyte Esterase Moderate H (Negative) Urine RBC 10 H (0-5) /hpf Urine WBC 30 H (0-5) /hpf Urine Mucus Rare H (None) /hpf Microbiology - Last 24 Hours (Table) 07/11/22 17:45 Urine Culture - Preliminary Urine,Voided Assessment and Plan (1) Spinal stenosis at L4-L5 level Current Visit: Yes Status: Acute Code(s): M48.061 - SPINAL STENOSIS, LUMBAR REGION WITHOUT NEUROGENIC KINA SNOMED Code(s): 77223316 (2) Spondylolisthesis, lumbar region Current Visit: Yes Status: Acute Code(s): M43.16 - SPONDYLOLISTHESIS, LUMBAR REGION SNOMED Code(s): 281506696507000 (3) Low back pain Current Visit: Yes Status: Acute Code(s): M54.50 - LOW BACK PAIN, UNSPECIF IED SNOMED Code(s): 671147966 (4) Hypertension Current Visit: Yes Status: Acute Code(s): I10 - ESSENTIAL (PRIMARY) HYPERTENSION SNOMED Code(s): 99752649 (5) Hyperlipidemia Current Visit: Yes Status: Acute Code(s): E78.5 - HYPERLIPIDEMIA, UNSPECIFIED SNOMED Code(s): 64445412 Plan: Continue lactulose 3 times a day. CBC and CMP tomorrow morning. Encourage patient to ambulate. Monitor patient's pulse oximetry on room air Anticipate discharge in the next 24-48 hours. Patient seen and evaluated by nurse practitioner, physician in agreement with plan
[2022-07-12] MEDS: LACTULOSE 20 GM/30 ML CUP PO SCH ×3 (10:17→19:51)
--- NOTE | 2022-07-12 15:31 | P.PN ---
Subjective Progress Note Date: 07/12/22 The patient is seen and feels much better. She stated she does not want some of the medication she is getting during this hospital and was referring to Lactulose. According to nurse her mentation is drastically better. Objective - Vital Signs Vital signs: Vital Signs Temp 97.9 F 07/12/22 07:01 Pulse 78 07/12/22 15:04 Resp 16 07/12/22 07:01 BP 130/71 07/12/22 07:01 Pulse Ox 99 07/12/22 08:28 FiO2 Intake & Output 07/11/22 07/12/22 07/12/22 18:59 06:59 18:59 Other: Voiding Method Bedside Commode Bedside Commode # Voids 1 5 # Bowel Movements 6 - Exam GENERAL: The patient is sitting in a recliner chair and is not in acute distress. NEUROLOGICAL: Higher mental function: The patient is awake, alert, oriented to self, place and time. Patient is following simple commands. No aphasia and no neglect. Cranial nerves: Visual manrique are full to confrontation throughout. Extraocular movement is intact no nystagmus is noted. The facial strength is normal throughout. No dysarthria is noted. Motor: The strength is lifting all extremities above gravity and no obvious focality. Normal tone and bulk. Cerebellum: Normal finger to nose bilaterally. Workup during his hospital visit is initial white blood cells 5.71 most recent is 15.05K Initial creatinine is 1.9 most recent is 1.3. The calcium is 8.4 most recent is 9.1 AST ALT is within normal limits. Sodium is within normal limits. CT of the head is reported no acute intracranial hemorrhage or midline shift. I personally reviewed the CT head and agree with report. Vitamin B12: 557 Serum folate 9.40 TSH: 1.20 Ammonia is 30 Possible has underlying acute UTI. - Labs CBC & Chem 7: 07/10/22 04:45 07/10/22 04:45 Labs: Abnormal Lab Results - Last 24 Hours (Table) 07/11/22 07/11/22 Range/Units 16:38 17:45 Ammonia 30 H (<30) umol/L Urine Protein Trace H (Negative) Ur Leukocyte Esterase Moderate H (Negative) Urine RBC 10 H (0-5) /hpf Urine WBC 30 H (0-5) /hpf Urine Mucus Rare H (None) /hpf Microbiology - Last 24 Hours (Table) 07/11/22 17:45 Urine Culture - Preliminary Urine,Voided Assessment and Plan Assessment: Encephalopathy seems to medication-induced (Volin) and underlying possible UTI--mentation is drastically better. Ammonia is borderline high Chronic low back pain with spinal stenosis over L4-L5 with radiculopathy status post revision laminectomy and a compression over L4-L5 on 07/06/2022 Migraine History of myocardial infarction Hyperlipidemia Plan: She received lactulose because of slight elevated ammonia by primary team. Recommend if possible hold off pain medication if possible Defer the rest of the medical management to primary team The plan is discussed with patient and her nurse. Otherwise no other neurological work-up is needed. Time with Patient: Less than 30
[2022-07-13] MEDS: HYDROcodone/APAP 7.5-325MG 1 EACH TAB PO PRN ×2 (02:23→09:50)
[2022-07-13] MEDS: LACTATED RINGERS 1,000 ML IV SCH (05:25)
[2022-07-13] MEDS: IPRATROPIUM 0.5 MG/2.5 ML NEBU INHALATION SCH ×2 (08:41→11:55)
[2022-07-13] MEDS: ALBUTEROL NEBULIZED 2.5 MG/3 ML INHALATION SCH ×2 (08:41→11:55)
[2022-07-13 08:55] VITALS: RESP 18
--- NOTE | 2022-07-13 09:00 | P.DS ---
Providers Date of admission: 07/08/22 12:36 Attending physician: Isaias Goodwin Consults: 07/06/22 15:13 Consult Physician Routine Consulting Provider: Keshawn Link Consult Reason/Comments: Medical management Do you want consulting provider notified?: Yes 07/11/22 12:22 Consult Physician Routine Consulting Provider: Sergio Regalado Consult Reason/Comments: Altered Mentation Do you want consulting provider notified?: Yes Primary care physician: Keshawn Link Hospital Course: This is a discharge summary 66-year-old white female essentially admitted for laminectomy. The patient had jame postop course and had decreased mental agitation. Toxic encephalopathy ensued with UTI. She was treated with lactulose after neurologic consultation. We discussed suspect this could be related to pain control issues. However, after being given Narcan antibiotics fluid and lactulose, she improved her mentation. She has normal postop pain breathing appropriately and she has not underlying history of COPD. She'll discharged stable condition to follow-up with me in about one week. Patient Condition at Discharge: Stable Plan - Discharge Summary Discharge Rx Participant: Yes New Discharge Prescriptions: New RX: Cyclobenzaprine [Flexeril] 10 mg PO TID PRN #60 tab PRN Reason: Muscle Spasm HYDROcodone/APAP 7.5-325MG [[place] 7.5-325] 1 each PO Q8HR PRN #21 tab PRN Reason: Pain cefUROXime axetiL [Ceftin] 500 mg PO BID 5 Days #10 tab Continue RX: Albuterol Sulfate [Proair Hfa] 2 puff INHALATION QID RX: Clopidogrel [Plavix] 75 mg PO DAILY #30 tablet RX: Nitroglycerin Sl Tabs [Nitrostat] 0.4 mg SL Q5M PRN PRN Reason: Chest Pain RX: Rosuvastatin Calcium 10 mg PO DAILY RX: hydroCHLOROthiazide [Hydrodiuril] 10 mg PO DAILY RX: Ipratropium-Albuterol Nebulize [Duoneb 0.5 mg-3 mg/3 ml Soln] 3 ml INHALATION QID RX: Metoprolol Tartrate [Lopressor] 25 mg PO BID RX: Losartan Potassium 100 mg PO DAILY RX: Isosorbide Mononitrate [Isosorbide Mononitrate ER] 30 mg PO DAILY Discharge Medication List RX: Albuterol Sulfate [Proair Hfa] 2 puff INHALATION QID 10/12/18 [History] RX: Clopidogrel [Plavix] 75 mg PO DAILY #30 tablet 10/16/18 [Rx] RX: Ipratropium-Albuterol Nebulize [Duoneb 0.5 mg-3 mg/3 ml Soln] 3 ml INHALATION QID 03/28/21 [History] RX: Nitroglycerin Sl Tabs [Nitrostat] 0.4 mg SL Q5M PRN 03/28/21 [History] RX: hydroCHLOROthiazide [Hydrodiuril] 10 mg PO DAILY 03/28/21 [History] RX: Isosorbide Mononitrate [Isosorbide Mononitrate ER] 30 mg PO DAILY 05/27/22 [History] RX: Losartan Potassium 100 mg PO DAILY 05/27/22 [History] RX: Metoprolol Tartrate [Lopressor] 25 mg PO BID 05/27/22 [History] RX: Rosuvastatin Calcium 10 mg PO DAILY 05/27/22 [History] RX: Cyclobenzaprine [Flexeril] 10 mg PO TID PRN #60 tab 07/08/22 [Rx] HYDROcodone/APAP 7.5-325MG [[place] 7.5-325] 1 each PO Q8HR PRN #21 tab 07/12/22 [Rx] cefUROXime axetiL [Ceftin] 500 mg PO BID 5 Days #10 tab 07/13/22 [Rx] Follow up Appointment(s)/Referral(s): Isaias Goodwin DO [Doctor of Osteopathic Medicine] - 07/19/22 2:45 pm Keshawn Link MD [Primary Care Provider] - 1 Week Activity/Diet/Wound Care/Special Instructions: 1. Patient may shower without a dressing intact. 2. Patient should refrain from driving until at least after their first follow- up appointment in the office. 3. Patient should avoid excessive bending, twisting, lifting; avoid overhead lifting; no lifting greater than 10 pounds 4. Take medications as prescribed 5. Patient should avoid anti-inflammatory medications over the next 6 weeks postoperatively 6. Do not soak in tub Discharge Disposition: TRANSFER TO SNF/ECF
[2022-07-13 09:01] VITALS: BP 113/81; PULSE 117; TEMP 98.9
[2022-07-13 09:25] LABS: African American GFR (CKD) 74.8 (60.0-200.0); Albumin/Globulin Ratio 1.34 (1.60-3.17); Anion Gap 9.7 mmol/L (10.00-18.00); BUN/Creat Ratio 24.92 Ratio (12.00-20.00); Blood Urea Nitrogen 22.9 mg/dL (9.0-27.0); Calcium 8.9 mg/dL (8.7-10.3); Carbon Dioxide 25.9 mmol/L (20.0-27.5); Globulin 2.3 g/dL (1.6-3.3); Non-African American GFR(CKD) 64.5 (60.0-200.0); Potassium 4.3 mmol/L (3.5-5.5); Total Bilirubin 0.2 mg/dL (0.30-1.20); Total Protein 5.3 g/dL (6.2-8.2)
[2022-07-13] MEDS: PANTOPRAZOLE 40 MG TABLET PO SCH (09:49)
[2022-07-13] MEDS: FAMOTIDINE 20 MG TAB PO SCH (09:50)
[2022-07-13] MEDS: SENNOSIDES-DOCUSATE SODIUM 1 EACH TAB PO SCH (09:50)
[2022-07-13] MEDS: METOPROLOL TARTRATE 25 MG TAB PO SCH (09:50)
[2022-07-13] MEDS: LOSARTAN 50 MG TAB PO SCH (09:50)
[2022-07-13] MEDS: ISOSORBIDE MONONITRATE ER 30 MG TAB.ER.24H PO SCH (09:50)
[2022-07-13] MEDS: ATORVASTATIN 20 MG TAB PO SCH (09:50)
[2022-07-13] MEDS: CLOPIDOGREL 75 MG TAB PO SCH (09:50)
[2022-07-13] MEDS: amLODIPine 5 MG TAB PO SCH (09:50)
[2022-07-13 10:32] LABS: HCT 27.3 % (37.2-46.3); MCH 25.4 pg (27.0-32.0); MCHC 29.3 g/dL (32.0-37.0); MCV 86.7 fL (80.0-97.0); Mean Platelet Volume 9.6 fL (9.5-12.2); NRBC Per 100 WBC 0 /100 WBCS (0.0-0.0); Platelet Count 257 X 10*3/uL (140-440); RBC 3.15 X 10*6/uL (4.10-5.20); RDW 15.3 % (11.5-14.5); WBC 8.05 X 10*3/uL (4.50-10.00)
--- NOTE | 2022-07-13 12:52 | P.PN ---
Subjective Progress Note Date: 07/13/22 The patient seen at bedside and she feels she is back to baseline. She is accompanied with her was at bedside as well and she feels she is doing great. Objective - Vital Signs Vital signs: Vital Signs Temp 98.9 F 07/13/22 07:10 Pulse 77 07/13/22 08:55 Resp 18 07/13/22 08:55 BP 113/81 07/13/22 07:10 Pulse Ox 97 07/13/22 08:43 FiO2 Intake & Output 07/12/22 07/13/22 07/13/22 18:59 06:59 18:59 Other: Voiding Method Bedside Commode Bedside Commode Bedside Commode # Voids 3 3 2 # Bowel Movements 2 - Exam GENERAL: The patient is sitting in a recliner chair and is not in acute distress. NEUROLOGICAL: Higher mental function: The patient is awake, alert, oriented to self, place and time. Patient is following simple commands. No aphasia and no neglect. Cranial nerves: Visual manrique are full to confrontation throughout. Extraocular movement is intact no nystagmus is noted. The facial strength is normal throughout. No dysarthria is noted. Motor: The strength is lifting all extremities above gravity and no obvious focality. Normal tone and bulk. Cerebellum: Normal finger to nose bilaterally. Workup during his hospital visit is initial white blood cells 5.71 most recent is 15.05K Initial creatinine is 1.9 most recent is 1.3. The calcium is 8.4 most recent is 9.1 AST ALT is within normal limits. Sodium is within normal limits. CT of the head is reported no acute intracranial hemorrhage or midline shift. I personally reviewed the CT head and agree with report. Vitamin B12: 557 Serum folate 9.40 TSH: 1.20 Ammonia is 30 Possible has underlying acute UTI. - Labs CBC & Chem 7: 07/13/22 07:30 07/13/22 06:56 Labs: Abnormal Lab Results - Last 24 Hours (Table) 07/13/22 07/13/22 Range/Units 06:56 07:30 RBC 3.15 L (4.10-5.20) X 10*6/uL Hgb 8.0 L (12.0-15.0) g/dL Hct 27.3 L (37.2-46.3) % MCH 25.4 L (27.0-32.0) pg MCHC 29.3 L (32.0-37.0) g/dL RDW 15.3 H (11.5-14.5) % Chloride 110 H (96-109) mmol/L Anion Gap 9.70 L (10.00-18.00) mmol/L BUN/Creatinine Ratio 24.92 H (12.00-20.00) Ratio Total Bilirubin 0.20 L (0.30-1.20) mg/dL Total Protein 5.3 L (6.2-8.2) g/dL Albumin 3.0 L (3.8-4.9) g/dL Albumin/Globulin Ratio 1.34 L (1.60-3.17) g/dL Microbiology - Last 24 Hours (Table) 07/11/22 19:15 Blood Culture - Preliminary Blood No Growth after 24 hours 07/11/22 17:45 Urine Culture - Final Urine,Voided 07/11/22 16:38 Blood Culture - Preliminary Blood No Growth after 24 hours Assessment and Plan Assessment: Encephalopathy seems to medication-induced ([place]) and underlying possible UTI--mentation is drastically better. Ammonia is borderline high Chronic low back pain with spinal stenosis over L4-L5 with radiculopathy status post revision laminectomy and a compression over L4-L5 on 07/06/2022 Migraine History of myocardial infarction Hyperlipidemia Plan: She received lactulose because of slight elevated ammonia by primary team. Recommend if possible hold off pain medication if possible Defer the rest of the medical management to primary team The plan is discussed with patient and her nurse. Otherwise no other neurological work-up is needed. Will sign off. Please reconsult if needed. Time with Patient: Less than 30
== END 2022-07-13 13:03 | DRG 459 ==
LOC: OR 09:37 → 4SSUR 15:15 → OR 07-08 11:32 → 4SSUR 07-08 12:36
PROVIDERS: ADMIT Family Medicine; ATTEND Orthopaedic Surgery Orthopaedic Surgery of the Spine
PROC: 0SG107J Fusion of 2 or more Lumbar Vertebral Joints with Autologous Tissue Substitute, Posterior Approach, Anterior Column, Open Approach (ICD-10-PCS; 2022-07-06)
PROC: 0SG30AJ Fusion of Lumbosacral Joint with Interbody Fusion Device, Posterior Approach, Anterior Column, Open Approach (ICD-10-PCS; 2022-07-06)
PROC: 01NB0ZZ Release Lumbar Nerve, Open Approach (ICD-10-PCS; 2022-07-06)
PROC: 01NR0ZZ Release Sacral Nerve, Open Approach (ICD-10-PCS; 2022-07-06)
PROC: 0SB20ZZ Excision of Lumbar Vertebral Disc, Open Approach (ICD-10-PCS; 2022-07-06)
PROC: 07DS3ZX Extraction of Vertebral Bone Marrow, Percutaneous Approach, Diagnostic (ICD-10-PCS; 2022-07-06)
PROC: 8E0WXBZ Computer Assisted Procedure of Trunk Region (ICD-10-PCS; 2022-07-06)
PROC: 0SG10AJ Fusion of 2 or more Lumbar Vertebral Joints with Interbody Fusion Device, Posterior Approach, Anterior Column, Open Approach (ICD-10-PCS; principal; 2022-07-06 11:55)
DX: M43.16 Spondylolisthesis, lumbar region (principal); G92.8 Other toxic encephalopathy; N17.9 Acute kidney failure, unspecified; D62 Acute posthemorrhagic anemia; N39.0 Urinary tract infection, site not specified; I95.2 Hypotension due to drugs; I10 Essential (primary) hypertension; J45.909 Unspecified asthma, uncomplicated; M51.16 Intervertebral disc disorders with radiculopathy, lumbar region; M48.061 Spinal stenosis, lumbar region without neurogenic claudication; E78.5 Hyperlipidemia, unspecified; T40.2X5A Adverse effect of other opioids, initial encounter; M51.37 Other intervertebral disc degeneration, lumbosacral region; R26.9 Unspecified abnormalities of gait and mobility; G89.29 Other chronic pain; Z98.1 Arthrodesis status; I25.2 Old myocardial infarction; Z95.5 Presence of coronary angioplasty implant and graft; Z88.8 Allergy status to other drugs, medicaments and biological substances; Z87.891 Personal history of nicotine dependence; Z79.899 Other long term (current) drug therapy; Z79.02 Long term (current) use of antithrombotics/antiplatelets; Z79.51 Long term (current) use of inhaled steroids; Z88.5 Allergy status to narcotic agent; Z79.01 Long term (current) use of anticoagulants
CPT/HCPCS: 70450; 71045; 72100; 80048; 80053; 81001; 82140; 82607; 82746; 83735; 84443; 84484; 85025; 85027; 87040; 87086; 87635; 93005; 94640; 94760

== ENCOUNTER → 2023-03-16 | Outpatient (CLI) | payer MEDICARE, OTHER ==
--- NOTE | 2023-03-17 06:26 | MR ---
EXAMINATION TYPE: MR lumbar spine wo/w con DATE OF EXAM: 03/16/2023 COMPARISON: Prior lumbar spine intraoperative x-ray July 06, 2022 HISTORY: Chronic Low back pain that radiates down both legs, history of surgery June 2022. TECHNIQUE: Multiplanar, multisequence images of the lumbar spine is performed without and with IV contrast, util izing 6 mL intravenous Gadavist FINDINGS: Sagittal images of the lumbar spine show vertebral body heights and alignment to appear sat isfactory. There is susceptibility artifact posterior intrapedicular rods and screws and artificial d isc material at L4-L5 level. Multilevel disc desiccation with disc space heights are otherwise mainta ined above and below surgical levels. The conus medullaris is normal in position and signal ending a t mid L1 level. The bone marrow signal intensity is within normal limits. No suspicious postcontrast enhancement is seen. Axial images show T12-L1 and L1-L2 levels to appear within normal limits. Axial images at L2-L3 level shows mild broad-based posterior disc protrusion minimally effacing anter ior thecal sac. Patent bilateral neural foramina. Axial images at L3-L4 level shows mild broad-based posterior disc protrusion minimally effacing anter ior thecal sac. Patent bilateral neural foramina. Artifact from surgical change posteriorly is noted. Axial images at L4-L5 level show artifact from surgical change. Spinal canal is preserved. The bilate ral neural foramina are grossly patent on sagittal images. Axial images at L5-S1 level show facet arthropathy bilaterally. Spinal canal is preserved. Bilateral neural foramina are grossly patent. The paraspinal muscle bulk is maintained. IMPRESSION: Postsurgical change L4-L5 level with satisfactory alignment. Mild multilevel degenerative changes are present as detailed above. No suspicious enhancement is seen.
== END | disposition home or self-care (01) ==
LOC: RADMRIMAIN 09:35
PROVIDERS: ATTEND Orthopaedic Surgery Orthopaedic Surgery of the Spine
DX: M51.16 Intervertebral disc disorders with radiculopathy, lumbar region (principal); M47.26 Other spondylosis with radiculopathy, lumbar region; M62.830 Muscle spasm of back; J44.9 Chronic obstructive pulmonary disease, unspecified; M48.062 Spinal stenosis, lumbar region with neurogenic claudication; Z48.89 Encounter for other specified surgical aftercare; Z98.1 Arthrodesis status
CPT/HCPCS: 72158; A9585

== ENCOUNTER → 2023-03-30 | Outpatient (CLI) | payer MEDICARE, OTHER ==
--- NOTE | 2023-03-30 16:18 | CT ---
EXAMINATION TYPE: CT lumbar spine wo con CT DLP: 514.4 mGycm, Automated exposure control for dose reduction was used. DATE OF EXAM: 03/30/2023 2:14 PM COMPARISON: 03/16/2023. CLINICAL INDICATION:Female, 67 years old with history of M47.816 SPONDYLOSIS W/O MYELOPATHY OR RADICU LOPATH; low back pain TECHNIQUE: Multiple axial images were obtained from the midportion of T11 through the sacroiliac leda nts. Soft tissue and bone windows in coronal and sagittal planes were obtained and reviewed. Contrast used: none. Oral contrast used: none. FINDINGS: Alignment: There are 5 lumbar type vertebral bodies. Grade 1 anterolisthesis of L4 and L5 which has b een surgically fixed. Bone: No evidence of fracture is identified. Post surgical changes L4-L5 with discectomy at L4-L5. H ardware appears intact. No evidence for fracture. Multilevel degeneration changes with osteophyte for mation and joint space narrowing and facet joint arthropathy. Discs: T12-L1: No spinal canal or neural foraminal stenosis is identified. L1-L2: No spinal canal or neural foraminal stenosis is identified. L2-L3: No spinal canal or neural foraminal stenosis is identified. L3-L4: No spinal canal or neural foraminal stenosis is identified. L4-L5: No spinal canal or neural foraminal stenosis is identified. L5-S1: No spinal canal or neural foraminal stenosis is identified. Other: None IMPRESSION: 1. No evidence for spinal fracture. 2. No evidence for significant spinal canal or neural foraminal stenosis given CT technique. 3. Post surgical changes with hardware intact.
== END | disposition home or self-care (01) ==
LOC: RADCTMAIN 13:54
PROVIDERS: ATTEND Orthopaedic Surgery Orthopaedic Surgery of the Spine
DX: M47.26 Other spondylosis with radiculopathy, lumbar region (principal); M48.062 Spinal stenosis, lumbar region with neurogenic claudication; M51.16 Intervertebral disc disorders with radiculopathy, lumbar region; M62.830 Muscle spasm of back; Z48.89 Encounter for other specified surgical aftercare; Z98.890 Other specified postprocedural states
CPT/HCPCS: 72131

== ENCOUNTER → 2023-07-27 | Outpatient (CLI) | payer MEDICARE, OTHER ==
--- NOTE | 2023-07-28 10:12 | MM ---
Reason for Exam: Screening (asymptomatic). Last mammogram was performed 13 year(s) and 3 month(s) ago. Patient History: Menarche at age 13. First Full-Term at age 17. Hysterectomy at age 29. Postmenopausal. Maternal cousin had breast cancer, age 40. Sister had breast cancer, age 74. Risk Values: Tabatha 5 year model risk: 2.9%. NCI Lifetime model risk: 9.3%. Prior Study Comparison: 05/14/2010 Bilateral Diagnostic Mammogram, [facility]. Tissue Density: There are scattered areas of fibroglandular density. Findings: Analyzed By CAD. There is no suspicious group of microcalcifications or new suspicious mass in either breast. Benign calcifications. Overall Assessment: Benign, BI-RAD 2 Management: Screening Mammogram of both breasts in 1 year. . Patient should continue monthly self-breast exams. A clinical breast exam by your physician is recommended on an annual basis. This exam should not preclude additional follow-up of suspicious palpable abnormalities. Note on Tabatha scores and lifetime risk: 1. A Tabatha score greater than 3% is considered moderate risk. If this is the case, consider specialist referral to assess eligibility for a risk reducing agent. 2. If overall lifetime risk for the development of breast cancer is 20% or higher, the patient may qualify for future screening with alternating mammogram and breast MRI. Electronically signed and approved by: Beau Marroquin M.D. Radiologis
== END | disposition home or self-care (01) ==
LOC: RADMAMWWP 10:53
PROVIDERS: ATTEND Family Medicine
DX: Z12.31 Encounter for screening mammogram for malignant neoplasm of breast (principal); Z78.0 Asymptomatic menopausal state; Z80.3 Family history of malignant neoplasm of breast
CPT/HCPCS: 77063; 77067

== ENCOUNTER → 2024-07-24 | Outpatient (CLI) | payer MEDICARE, OTHER ==
[2024-07-24 15:16] LABS: Carbon Dioxide 26.8 mmol/L (21.6-31.8); Chloride 103 mmol/L (96-109); Potassium 4.4 mmol/L (3.5-5.5); Sodium 142 mmol/L (135-145)
[2024-07-24 15:53] LABS: HCT 43.9 % (37.2-46.3); HGB 13.4 g/dL (12.0-15.0); MCH 25.1 pg (27.0-32.0); MCHC 30.5 g/dL (32.0-37.0); MCV 82.2 FL (80.0-97.0); Mean Platelet Volume 9.5 FL (9.5-12.2); NRBC Per 100 WBC 0 X 10*3/uL (0.00-0.01); Platelet Count 325 X 10*3/uL (140-440); RBC 5.34 X 10*6/uL (4.10-5.20); RDW 15.6 % (11.5-14.5); WBC 12.43 X 10*3/uL (4.50-10.00)
== END | disposition home or self-care (01) ==
LOC: LABPAT 12:02
PROVIDERS: ATTEND Internal Medicine Interventional Cardiology
DX: Z01.812 Encounter for preprocedural laboratory examination (principal); I25.10 Atherosclerotic heart disease of native coronary artery without angina pectoris
CPT/HCPCS: 80051; 82565; 84520; 85027

== ENCOUNTER 2024-07-30 09:19 | Day surgery (SDC) | payer MEDICARE, OTHER ==
[2024-07-29 15:00] VITALS: BMI 31.2
[2024-07-30] MEDS: SODIUM CHLORIDE 0.9% 1,000 ML in EMPTY BAG 1 BAG IV ONE (09:16)
[~2024-07-30 09:19] MED LIST changes: +ALPRAZolam 0.5 MG TAB PO PRN; -LIDOCAINE 1% (10MG/ML) FOR IV START INTRADERMA PRN; +NITROGLYCERIN SL TABS 0.4 MG TAB SUBLINGUAL PRN; -ONDANSETRON 4 MG/2 ML VIAL IVP ONE; -ceFAZolin 1,000 MG in SODIUM CHLORIDE 0.9% IRRIGATIO 1,000 ML IRRIGATION PRN
[2024-07-30] MEDS: IV FLUID CONTINUATION 1,000 ML IV ONE (09:22)
[2024-07-30] MEDS: ASPIRIN 325 MG TAB PO STA (09:59)
[2024-07-30] MEDS: ALPRAZolam 0.25 MG TAB PO PRN (10:00)
[2024-07-30 10:03] VITALS: RESP 16; TEMP 97.9
[2024-07-30] MEDS: HEPARIN SODIUM,PORCINE 10,000 UNIT in SODIUM CHLORIDE 0.9% 1,000 ML IRRIGATION PRN (10:21)
[2024-07-30] MEDS: HEPARIN SODIUM,PORCINE (1 ML) 2,500 UNIT in SODIUM CHLORIDE 0.9% 250 ML IRRIGATION PRN (10:21)
[2024-07-30] MEDS: LIDOCAINE 1% INJ 10MG/ML (20 ML MDV) SQ ONE (10:41)
[2024-07-30] MEDS: MIDAZOLAM 2 MG/2 ML VIAL IVP ONE (10:41)
[2024-07-30] MEDS: VERAPAMIL SYRINGE (5 MG/10 ML) INTRAARTER ONE (10:48)
[2024-07-30] MEDS: fentaNYL (PF) 50 MCG/1 ML VIAL IVP ONE (10:52)
[2024-07-30] MEDS: HEPARIN SODIUM 1,000 UN/ML (10ML VL) IVP ONE (10:52)
[2024-07-30] MEDS: NITROGLYCERIN 1000MCG/10ML SYRINGE INTRACORON ONE (11:14)
[2024-07-30] MEDS: IOPAMIDOL-370 100ML BTL INJ ONE (11:20)
--- NOTE | 2024-07-30 11:43 | P.CARDCATH ---
Date of Procedure: 07/30/24 Description of Procedure: History: Patient was referred for cardiac catheterization to evaluate for CAD. This lady has history of CAD with a prior PCI of mid LAD in 2019 was rechecked in 2022 which was patent. She has hypertension hyperlipidemia past history of smoking and bullous emphysema for which she had lung surgery more than a year ago in [place]. She continues to have chest pain in spite of a negative stress test and therefore after much discussion she was advised to have coronary angiogram and was fully aware of all the risks benefits options and wished to proceed with the procedure. I discussed with the patient and her at length and they understood all details and wished to proceed Procedure: #1 left heart catheterization and coronary angiography. #2 iFR assessment of proximal and mid LAD. Procedure Details: The risks, benefits, complications, treatment options, and expected outcomes were discussed with the patient. The patient and/or family concurred with the proposed plan, giving informed consent. 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 Patient was further sedated with midazolam. Patient was prepped and draped in the usual manner. Under strict aseptic precautions and local anesthesia a 6 [place] introducer was placed in the right radial artery. Using a JL 3/5 and a JR 4/0 catheters I performed coronary angiography and the same JR catheter was used to check LV pressures and LV gram was not performed. iFR assessment: I used a 6 [place] JL 3.5 guide catheter to cannulate the left coronary artery and a Omni straight wire. After appropriate zeroing and normalization the wire was advanced and kept in the midportion of the LAD beyond the stented segment. iFR assessment was performed and this was 0.93 and 0.94. This suggests no hemodynamically significant lesion in the proximal LAD which had a 35% narrowing. The wire and the sheath was taken out and TR band applied to secure hemostasis. There was good saturation in the fingers of the right hand of about 98%. After the procedure was completed the sheaths and catheters were all removed. Hemostasis was achieved with TR band. Saturation in the fingers of the right hand was about 98%. Patient tolerated the procedure well without complication. Results were discussed at length with the patient as well as her . She will be discharged today and I will see her on the in the office in AM. Moderate conscious sedation time was 38 minutes. Patient's oxygen saturation hemodynamics and EKG were monitored closely. After the procedure was completed the sheaths and catheters were all removed. Findings: Hemodynamics: Left ventricle end-diastolic pressure was 13 mmHg without any gradient across aortic valve Left Main: Short patent vessel no significant disease bifurcates into LAD and circumflex LAD: Proximal 35 to 40% lesion. Beyond this a diagonal branch comes off and then there is a stented segment that is widely patent with good flow. No other significant disease. I performed IFR of the proximal LAD 40% lesion and the IFR was 0.93 and 0.94 suggesting that this was not a hemodynamically significant lesion CIRC: Nondominant vessel fair caliber fair distribution minor irregularities no significant disease RCA: Dominant vessel minor irregularities no significant disease distally bifurcates into PDA and PLV both of which are relatively small in caliber and distribution LV: Not performed Closure Device: TR band Complications: None Estimated Blood Loss: Minimal Impression: This patient has a right dominant system normal filling pressures no gradient. 35 to 40% proximal LAD disease. Stented segment in the LAD is widely patent. No other significant disease in circumflex which is nondominant of the dominant RCA or left main. No other areas of disease in the LAD. IFR of LAD was negative it was about 0.93 and 0.94. Pre Procedure Diagnosis: Chest pain with CAD Final Post Procedure Diagnosis: Noncritical CAD with widely patent LAD stent Recommendation: Continued medical therapy with risk factor modification Complications: None; patient tolerated the procedure well. Disposition: [facility]- hemodynamically stable. Condition: Stable Discharge Disposition: Discharge patient home later on today. Patient is scheduled to see me in 48 hours
[2024-07-30] MEDS: ACETAMINOPHEN TAB 500 MG TAB PO STA (11:49)
[2024-07-30] MEDS: HYDROmorphone 0.5 MG/0.5 ML SYRINGE IVP STA (13:19)
[2024-07-30] MEDS: SODIUM CHLORIDE 0.9% 1,000 ML IV ONE (14:00)
[2024-07-30 16:38] VITALS: BP 158/72; PULSE 58
== END 2024-07-30 16:25 | disposition home or self-care (01) ==
LOC: CATHCVL 09:19
PROVIDERS: ATTEND Internal Medicine Interventional Cardiology
DX: I25.10 Atherosclerotic heart disease of native coronary artery without angina pectoris (principal); Z95.5 Presence of coronary angioplasty implant and graft; E78.00 Pure hypercholesterolemia, unspecified; Z87.891 Personal history of nicotine dependence; I10 Essential (primary) hypertension; Z79.82 Long term (current) use of aspirin
CPT/HCPCS: 93458; J2250; J1644 ×3; J2003; J1171; Q9967; J3010; J2305; 93799